=== PATIENT | male | born 1950 | race Caucasian/White ===

== ENCOUNTER 2017-08-19 12:06 | Inpatient (IN) ==
--- NOTE | 2017-08-19 13:18 | Podiatry History & Physical ---
History of Present Illness Chief complaint: osteomyelitis of calcaneus, left with achilles tendon rupture. HPI: Mr. Zaman is a 67 year old male who was recently seen for an Achilles tendon rupture. A short relates that he has had an ulcer on the back of his heel for over a month and the ulceration site continues to drain. Patient patient relates that he was seen wound care for the site and then had a rupture and infection and was referred to me. An MRI reveals bone marrow edema consistent with osteomyelitis and an ESR demonstrates inflammation that could likely correspond to osteomyelitis as well. Previous cultures were obtained and culture results will be obtained if possible from the other facility. New cultures were obtained today and we will await sensitivity. The patient has been on antibiotics orally for the last few days. The patient relates a history of COPD, gout, poorly controlled diabetes, occipital neuralgia. All Systems Reviewed: A 10-system review of systems was performed and is negative for pertinent findings except as documented above in the HPI. Past Med Surg Social Fam HX - Past Medical History Medical history: CHF, COPD, diabetes, thyroid disease, other Psychiatric history: no psych history - Social History Smoking Status: Former smoker Smokeless Tobacco Status: Yes (1 POUCH/2 DAYS) Alcohol use: none Drug use: none Medications and Allergies Albuterol Sulfate [Albuterol Inhaler] 2 puff IH Q4HR 11/16/15 [History] Allopurinol [Zyloprim 300 MG] 300 mg PO DAILY 11/16/15 [History] Carvedilol [Carvedilol] 6.25 mg PO BID 11/16/15 [History] Ciprofloxacin [Cipro] 500 mg PO BID 11/16/15 [History] Furosemide [Lasix] 120 mg PO BID 11/16/15 [History] Levothyroxine [Synthroid] 75 mcg PO 0630 11/16/15 [History] Potassium Chloride [K-Tab ER] 3 tab PO BID 11/16/15 [History] Potassium Phosphate,Monobasic [K-Phos Original] 500 mg PO DAILY 11/16/15 [ History] PredniSONE [Deltasone] 20 mg PO BID 11/16/15 [History] Spironolactone [Aldactone] 2 tab PO BID 11/16/15 [History] glipiZIDE [Glipizide] 10 mg PO TID 11/16/15 [History] Insulin Aspart Prot/Insuln Asp [Novolog Mix 70-30 Flexpen Syrn] 100 unit SQ BID 11/17/15 [History] 3 Allergy/AdvReac Type Severity Reaction Status Date / Time No Known Allergies Allergy Verified 11/16/15 22:30 Physical Exam - Constitutional Exam: 2 cm diameter full-thickness heel ulcer on the posterior aspect of the left heel with drainage consistent with purulence. There is erythema surrounding the ulceration site. Pedal pulses palpable. Cap refill time intact to digits 1 through 5 bilaterally. Sensation slightly decreased consistent with peripheral neuropathy. Labs-ESR elevated CRP elevated MRI demonstrates bone marrow edema and Achilles tendon rupture of the left. Results - Labs Labs: All other labs normal. Assessment and Plan (1) Acute osteomyelitis of left calcaneus Current visit: Yes Status: Acute We will consult medicine for medical management and stabilization of the patient for surgery and to manage the patient's multiple comorbidities. We will consult infectious disease for IV antibiotics for osteomyelitis of the calcaneus and will likely need 6 weeks of antibiotics. Planning on surgical debridement of the site as soon as the patient is stable for surgery. The patient will need to remain nonweightbearing and have daily dressing changes consistent of Adaptic 4 x 4's and Kerlix The heel will need to be offloaded at all times with no pressure on the posterior aspect of the heel and pillows floating the heel. At discharge the patient will likely need a wound VAC, IV antibiotics, possible assisted device to remain nonweightbearing at home. Social work will be consulted. Surgical consent-The patient needs an irrigation and debridement of the left calcaneus with application of wound VAC. The procedure was discussed with the patient at length. The patient was also instructed that after the procedure he would need a wound VAC for an extended period of time to allow the site to heal. The patient was also instructed that he may require an additional surgery at a later time to repair the Achilles. The patient was instructed that at this time we would not likely repair the Achilles due to the infection and the desire to avoid any implants which may cause complications with the infection. The patient will first receive a washout and then IV antibiotics for an extended period of time with a wound VAC after which we will consider repairing the Achilles. Patient was informed of the risks and complications of surgery. These may include but are not limited to the following; nerve damage, numbness, tingling, RSD/CRPS, loss of motor function, loss of toe, loss of limb , loss of life, ischemia, wound healing issues, infection, scarring, keloid formation, continued pain, arthritis, non-union, mal-union, prominent hardware, displaced hardware, reaction to hardware, the need to remove hardware, bruising , continued limp, the need for future surgery, over correction, under correction , chronic swelling, the need for physical therapy, stiffness of joints, ulceration, slow healing, wound dehiscence, reaction to implant, reaction to sutures. The patient was informed of the possible conservative treatments available which may include but are not limited to the following: Orthotics, bracing, non -weight bearing, physical therapy, padding, taping, steroid injections, NSAIDS, casting. The patient was given the option to seek a second opinion. It was explained that surgery is an art and not an exact science therefore results cannot be guaranteed. All the patients questions and concerns were addressed. Patient agrees to have the surgery despite the possible risks and complications. Absolutely no guarantees were given or implied.
[2017-08-19] MEDS ORDERED: Naloxone 0.4 MG/ML INJ IVP PRN (14:48)
[2017-08-19] MEDS ORDERED: Ondansetron 4 MG/2 ML VIAL IVP PRN (14:48)
[2017-08-19] MEDS ORDERED: Dextrose Gel 15 GM PO PRN ×2 (15:10)
[2017-08-19] MEDS ORDERED: D5% in Water 1,000 ML IVC PRN (15:10)
[2017-08-19] MEDS ORDERED: *HR* Dextrose 50 % in Water (Syg) 50 ML SYRINGE IVP PRN (15:10)
--- NOTE | 2017-08-19 15:39 | Internal Med History&Physical ---
<Flory Aguirre - Last Filed: 08/19/17 16:35> Date of Encounter: 08/19/17 Time of Encounter: 15:34 Assessment and Plan (1) Acute osteomyelitis of left calcaneus Current visit: Yes Status: Acute 1 blood cultures have been obtained we will initiate on vancomycin and Zosyn 2 orthopedics has been consulted for surgical debridement- and wound managment 3 patient does have history of DM and will need at least 6 weeks IV ATB will consult ID (2) Diabetes mellitus Current visit: No Status: Chronic 1 Accu-Cheks before meals at bedtime sliding scale insulin as well as basal 2 diabetic diet Qualifiers: Diabetes mellitus type: type 2 Diabetes mellitus complication status: without complication 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 Does not appear to be in overload at this point, we will obtain echo. We will consult cardiology for preop clearance. Fluid restriction Monitor intake and output Continue with Lasix, spironolactone Continuous cardiac monitoring Qualifiers: Heart failure chronicity: chronic Qualified Code(s): I50.32 - Chronic diastolic (congestive) heart failure (4) Obesity hypoventilation syndrome Current visit: No Status: Chronic Patient has history of CO2 retention he is morbidly obese. He does have a trach which she received in December 2015. We will consult respiratory therapy for trach care Oxygen as needed to maintain SPO2 greater than 92% (5) COPD (chronic obstructive pulmonary disease) Current visit: No Status: Chronic Presently appears to be stable we will continue with oxygen and bronchodilators Qualifiers: COPD type: unspecified COPD Qualified Code(s): J44.9 - Chronic obstructive pulmonary disease, unspecified (6) DVT prophylaxis Current visit: Yes Status: Acute Heparin subcutaneous Internal Medicine - H&P: HPI Chief complaint: infection Plans for Post Hospital Care: Home History of present illness: Mr. Zaman is a 67 year old male past medical history of hypothyroid COPD, obesity hypoventilation-patient has a trach. Diastolic CHF CK D PVD. Patient has had a ulcer on the back of his heel for approximately a month which began to drain. He was seen at the wound care clinic. On August 06 of this year patient did sustain Achilles tendon rupture and open displaced avusion fx of tuberosity of l calcaneous . He has been on outpatient antibiotics for the last few days He was referred to orthopedics. An MRI revealed bone marrow edema consistent with osteomyelitis as well as an elevated ESR. Cultures were obtained at the outlying facility. He was directly admitted for further workup and evaluation. Lab work was obtained as well as blood cultures. Patient does have history of diastolic heart failure as well as obesity hypoventilation. Cardiology has been consult in for preop clearance. We will obtain cardiac echo as well as EKG. At present time patient appears to be hemodynamically stable. Past Med Surg Social Fam HX - Past Medical History Medical history: CHF, COPD, diabetes, thyroid disease, other Psychiatric history: no psych history - Past Surgical History Surgical History: orthopedic, other - Social History Smoking Status: Former smoker Smokeless Tobacco Status: Yes (1 POUCH/2 DAYS) Alcohol use: none Drug use: none - Family History Mother Living Status: Cause of : Leukemia Hx Family Cancer: Yes (Leukemia) Hx Family Endocrine Disorder: Yes (DM) Father Living Status: Cause of : Colon CA Hx Family Cancer: Yes (Colon) Internal Medicine - H&P: Meds Albuterol Sulfate [Albuterol Inhaler] 2 puff IH Q4HR 11/16/15 [History] Allopurinol [Zyloprim 300 MG] 300 mg PO DAILY 11/16/15 [History] Levothyroxine [Synthroid] 75 mcg PO 0630 11/16/15 [History] Potassium Chloride [K-Tab ER] 3 tab PO BID 11/16/15 [History] Spironolactone [Aldactone] 2 tab PO BID 11/16/15 [History] Insulin Aspart Prot/Insuln Asp [Novolog Mix 70-30 Flexpen Syrn] 50 unit SQ BID 11/17/15 [History] Collagenase Oint [Santyl] 1 appl TP DAILY 08/19/17 [History] Doxycycline Hyclate [Vibramycin] 100 mg PO BID 08/19/17 [History] Furosemide [Lasix] 80 mg PO TID 08/19/17 [History] Omeprazole [PriLOSEC] 40 mg PO DAILY 08/19/17 [History] OxyCODONE/APAP 10/325 [Percocet 10/325 MG] 1 tab PO Q6H PRN 08/19/17 [History] 3 Allergy/AdvReac Type Severity Reaction Status Date / Time No Known Allergies Allergy Verified 08/19/17 14:08 All Systems PM: A 10-system review of systems was performed and is negative for pertinent findings except as documented above in the HPI. - Constitutional Constitutional: no chills, no fever(s), no night sweats - EENT Eyes: no change in vision, no discharge, no pain, no photophobia Nose, mouth and throat: no dysphagia, no nasal discharge, no neck pain, no sore throat - Cardiovascular Cardiovascular ROS IM: no chest pain, no diaphoresis, no dyspnea, no lightheadedness, no palpitations, no syncope - Respiratory Respiratory: no cough, no dyspnea, no wheezing, no excessive phlegm production - Gastrointestinal Gastrointestinal: no abdominal pain, no diarrhea, no hematemesis, no hematochezia, no melena, no nausea, no vomiting - Musculoskeletal Musculoskeletal ROS IM: no numbness, no tingling - Integumentary Integumentary IM: no rash, no unusual bruising - Neurological Neurological ROS: no confusion, no convulsions, no focal weakness, no numbness, no tingling, no tremor(s) - Constitutional Vitals: Temp Pulse Resp BP Pulse Ox 98.8 F 83 18 168/73 90 08/19/17 14:16 08/19/17 14:16 08/19/17 14:16 08/19/17 14:16 08/19/17 14:40 General appearance: Present: A&O X 3 - Head Head exam: Present: atraumatic, normocephalic - Eye Eye exam: Present: PERRL, conjuntiva pink, sclera anicteric Pupils: Present: PERRL - Neck Neck exam general surgery: Present: supple, trachea midline. Absent: lymphadenopathy - Respiratory Respiratory exam: Present: CTAB. Absent: accessory muscle use, rales, rhonchi, wheezes - Cardiovascular Cardiovascular exam: Present: RRR, +S1, +S2. Absent: diastolic murmur, gallop, rubs, systolic murmur - GI/Abdominal GI/Abdominal exam: Present: normal bowel sounds, soft, no peritoneal signs. Absent: distended, tenderness - Extremities Exam Extremities exam: Present: warm, radial pulses palpable and symmetrical. Absent : calf tenderness, cyanotic, pedal edema - Expanded Lower Extremities Exam Ankle exam: Present: swelling (Left leg was splinted) Internal Med - H&P Results - Labs CBC & Chem 7: 08/19/17 16:02 08/19/17 16:02 <Jarrell Perez P - Last Filed: 08/19/17 17:55> Date of Encounter: 08/19/17 Internal Medicine - H&P: HPI History of present illness: Mr. Zaman is a 67 year old male All Systems PM: A 10-system review of systems was performed and is negative for pertinent findings except as documented above in the HPI. - Constitutional Vitals: Temp Pulse Resp BP Pulse Ox 98.8 F 83 18 168/73 90 08/19/17 14:16 08/19/17 14:16 08/19/17 14:16 08/19/17 14:16 08/19/17 14:40 Internal Med - H&P Results - Labs CBC & Chem 7: 08/19/17 16:02 08/19/17 16:02 Labs: Short CBC 08/19/17 Range/Units 16:02 WBC 8.1 (4.3-11.1) K/mcL Hgb 13.3 (12.9-16.9) g/dL Hct 42.3 (37.5-50.1) % Plt Count 253 (140-400) K/mcL Neutrophils # 5.9 (1.6-8.9) K/mcL BMP 08/19/17 16:02 Sodium 139 Potassium 4.1 Chloride 100 Carbon Dioxide 31 H BUN 22 Creatinine 1.60 H Glucose 177 H Calcium 8.9 Liver Function 08/19/17 Range/Units 16:02 Total Bilirubin < 0.2 L (0.2-1.2) mg/dL AST 19 (5-34) Units/L ALT 16 (0-55) Units/L Alkaline Phosphatase 91 (38-126) Units/L Albumin 2.6 L (3.5-5.0) g/dL - Attending Attestation I examined this patient and my medical decision-making was reviewed with the Resident Physician/COMMUNITY AFFAIRS DIRECTOR. I agree with the documented findings, disposition and treatment plan as described except to the extent set forth below. Patient seen and examined. Next line chart reviewed. I examined this patient in unit 3B 65 along with Ms Ruth. Very complex case and multiple comorbidities. Please review the comorbidities and presenting symptom as above. This patient needs surgery but before that he needs a cardiology clearance as he has multiple risk factors. There is a risk of patient might get into ventilator/ICU if he receives under general anesthesia during the surgery. We will get cardiology/infectious disease/social and human services assistant on the board for their opinion.
[2017-08-19] MEDS ORDERED: Vancomycin 2,000 MG in D5% in Water 500 ML IVPB ONE (16:00)
[2017-08-19 16:13] LABS: Basophils # 0.1 K/mcL (0.0-0.2); Basophils % 0.6 %; Eosinophils # 0.2 K/mcL (0.0-0.6); Hematocrit 42.3 % (37.5-50.1); Hemoglobin 13.3 g/dL (12.9-16.9); Immature Granulocytes % 0.4 % (0-4); Lymphocytes # 1.4 K/mcL (0.6-4.6); Lymphocytes % 17.3 %; Mean Corpuscular HGB Conc 31.4 g/dL (31.6-35.5); Mean Corpuscular Hemoglobin 28.9 pg (28.0-33.3); Mean Platelet Volume 9.7 fL (9.4-12.4); Monocytes # 0.5 K/mcL (0.0-1.3); Monocytes % 6.5 %; Neutrophils # 5.9 K/mcL (1.6-8.9); Platelet Count 253 K/mcL (140-400); Red Cell Distribution Width 14.6 % (11.5-14.5); Segmented Neutrophils % 73.2 %
[2017-08-19 16:27] LABS: Alanine Aminotransferase 16 Units/L (0-55); Albumin 2.6 g/dL (3.5-5.0); Albumin/Globulin Ratio 0.6 (1.1-2.2); Alkaline Phosphatase 91 Units/L (38-126); Aspartate Amino Transferase 19 Units/L (5-34); BUN/Creatinine Ratio 14 (6-26); Blood Urea Nitrogen 22 mg/dL (8-26); Calcium 8.9 mg/dL (8.6-10.8); Carbon Dioxide 31 mEq/L (19-29); Chloride 100 mEq/L (98-109); Globulin 4.7 g/dL (2.4-3.5); Glucose 177 mg/dL (70-99); Osmolality,Calculated 296 (280-300); Potassium 4.1 mEq/L (3.5-4.5); Sodium 139 mEq/L (136-145); Total Protein 7.3 g/dL (6.0-8.3); eGFR For African Americans 52 (> 60); eGFR For Non-African Americans 43 (> 60)
[2017-08-19 16:32] LABS: Bilirubin,Total < 0.2 mg/dL (0.2-1.2)
[2017-08-19] MEDS: Furosemide 40 MG TABLET PO SCH ×2 (16:35→21:11)
[2017-08-19] MEDS: Piperacillin/Tazobactam 3.375 GM in D5% in Water 50 ML IVPB SCH (16:35)
[2017-08-19] MEDS: Insulin LISPRO 300 UNITS/3 ML VIAL SQ SCH ×2 (17:37→21:02)
[2017-08-19] MEDS: *HR* Heparin 5,000 UNIT/ML VIAL SQ SCH (17:38)
[2017-08-19] MEDS ORDERED: 0.9 % Sodium Chloride 250 ML ONE (18:39)
[2017-08-19] MEDS ORDERED: Perflutren Lipid Microsphere 1.3 ML in 0.9 % Sodium Chloride 8.7 ML IVP ONE (19:59)
[2017-08-19] MEDS: Spironolactone 25 MG TABLET PO SCH (21:11)
[2017-08-19] MEDS: Insulin DETEMIR 100 UNIT/ML X5UNITS SQ SCH (21:11)
[2017-08-20] MEDS: Piperacillin/Tazobactam 3.375 GM in D5% in Water 50 ML IVPB SCH ×4 (00:07→20:45)
[2017-08-20] MEDS ORDERED: amLODIPine 5 MG TABLET PO ONE (03:44)
[2017-08-20] MEDS ORDERED: Vancomycin 1,750 MG in D5% in Water 500 ML IVPB SCH (04:00)
[2017-08-20 05:40] LABS: Basophils # 0.1 K/mcL (0.0-0.2); Basophils % 0.7 %; Eosinophils # 0.3 K/mcL (0.0-0.6); Eosinophils % 2.7 %; Hemoglobin 13.5 g/dL (12.9-16.9); Immature Granulocytes % 0.5 % (0-4); Lymphocytes # 1.3 K/mcL (0.6-4.6); Lymphocytes % 13.7 %; Mean Corpuscular HGB Conc 30.7 g/dL (31.6-35.5); Mean Corpuscular Hemoglobin 28.4 pg (28.0-33.3); Mean Corpuscular Volume 92.6 fL (83.0-100.0); Mean Platelet Volume 9.6 fL (9.4-12.4); Monocytes # 0.7 K/mcL (0.0-1.3); Monocytes % 7.7 %; Neutrophils # 7.2 K/mcL (1.6-8.9); Platelet Count 246 K/mcL (140-400); Red Blood Count 4.75 M/mcL (4.19-5.50); Red Cell Distribution Width 14.8 % (11.5-14.5); Segmented Neutrophils % 74.7 %
[2017-08-20] MEDS: *HR* Heparin 5,000 UNIT/ML VIAL SQ SCH ×2 (05:54→17:46)
[2017-08-20 05:56] LABS: Calcium 8.9 mg/dL (8.6-10.8); Potassium 3.7 mEq/L (3.5-4.5)
[2017-08-20 06:10] LABS: Thyroid Stimulating Hormone 3.353 mcIU/mL (0.350-4.840)
[2017-08-20] MEDS: Insulin LISPRO 300 UNITS/3 ML VIAL SQ SCH ×4 (07:32→20:45)
[2017-08-20] MEDS: Spironolactone 25 MG TABLET PO SCH ×2 (09:32→20:44)
[2017-08-20] MEDS: Furosemide 40 MG TABLET PO SCH ×3 (09:32→20:44)
--- NOTE | 2017-08-20 10:00 | Cardiology Consult Note ---
<Naty Rosenthal - Last Filed: 08/20/17 11:23> Date of Encounter: 08/20/17 Time of Encounter: 10:40 Assessment and Plan (1) Pre-operative cardiovascular examination Current Visit: Yes Status: Acute Patient diagnosed with osteomyeltis of calcaneus with left achilles tendon rupture and plans for surgical debridement. Patient denies chest pain at rest or with exertion. Denies orthopnea with zero pillows, PND, syncope. Cardiovascular risk factors: former smoker (20 years ago), obesity, HTN, DM2. No family hx of cardiovascular disease. EKG normal sinus rhythm with no evidence for current or prior ischemia. Limited echo showed EF 55-60%, normal LV chamber size and function. Mild concentric LVH. RCRI risk score of 1 point for DM insulin dependent, giving him a 0.9% risk of major cardiac events. According to the RCRI score, he is low to intermediate risk for surgical debridement with a normal EKG and limited echo. Any further cardiac testing navid prevent and delay surgery, therefore it navid be reasonable to proceed with surgery from a cardiovascular standpoint. Discussion w patient/family: The assessment and plan as outlined above was discussed with the patient and/or family members who expressed understanding and agreement. All questions were answered. Thank you for involving us in the care of your patient. Please call with any questions. History of Present Illness Consult date: 08/20/17 Requesting physician: Flory Aguirre Consult reason: preop clearance Chief complaint: osteomyeltitis History of present illness: Mr. Zaman is a 67 year old male witha pmh of HTN, CKD, and PVD, obesity hypoventilation-patient has a trach, and former smoker who presented as a direct admit from podiatry for osteomyelitis. Cardiology was consulted for surgical debraidement clearance. Patient states that he has no chest pain at rest or with excertion. Patient states that te most strenuous activity he performs is going 10ft to the bathroom. When he does this he states he has no chest pain or shortness of breath. He does not use home ozygen. At home patient sleeps completely flat without using a pillow denies orthopnea or PND. Patient states that he has not had syncope in years but is dizzy when he looks up and down. No family hx of cardiovascular event. Former smoker 20 years ago. Past Med Surg Social Fam HX - Past Medical History Medical history: CHF, COPD, diabetes, thyroid disease, other Psychiatric history: no psych history - Past Surgical History Surgical History: orthopedic, other - Social History Smoking Status: Former smoker Smokeless Tobacco Status: Yes (1 POUCH/2 DAYS) Alcohol use: none Drug use: none - Family History Mother Living Status: Cause of : Leukemia Hx Family Cancer: Yes (Leukemia) Hx Family Endocrine Disorder: Yes (DM) Father Living Status: Cause of : Colon CA Hx Family Cancer: Yes (Colon) Medications and Allergies Albuterol Sulfate [Albuterol Inhaler] 2 puff IH Q4HR 11/16/15 [History] Allopurinol [Zyloprim 300 MG] 300 mg PO DAILY 11/16/15 [History] Levothyroxine [Synthroid] 75 mcg PO 0630 11/16/15 [History] Potassium Chloride [K-Tab ER] 3 tab PO BID 11/16/15 [History] Spironolactone [Aldactone] 2 tab PO BID 11/16/15 [History] Insulin Aspart Prot/Insuln Asp [Novolog Mix 70-30 Flexpen Syrn] 50 unit SQ BID 11/17/15 [History] Collagenase Oint [Santyl] 1 appl TP DAILY 08/19/17 [History] Doxycycline Hyclate [Vibramycin] 100 mg PO BID 08/19/17 [History] Furosemide [Lasix] 80 mg PO TID 08/19/17 [History] Omeprazole [PriLOSEC] 40 mg PO DAILY 08/19/17 [History] OxyCODONE/APAP 10/325 [Percocet 10/325 MG] 1 tab PO Q6H PRN 08/19/17 [History] 3 Allergy/AdvReac Type Severity Reaction Status Date / Time No Known Allergies Allergy Verified 08/19/17 14:08 All Systems Review: A 10-system review of systems was performed and is negative for pertinent findings except as documented above in the HPI. Physical Examination Vital Signs, Last 4 Hours Temp Pulse Resp BP Pulse Ox 08/20/17 07:22 92 08/20/17 06:47 97.9 F 74 16 144/79 92 General: Conversant, No Apparent Distress HEENT: Atraumatic, Normocephaly, Mucus Membranes Moist Neck: Normal carotid pulses Cardiac: Reg Rate and Rhythm, Normal S1 and S2, No Murmur Lungs: Normal Breath Sounds, No Wheeze, Rales, Rhonchi Neuro: Alert and responsive, No focal deficits noted Abdomen: Non-Tender Skin: No rashes noted on visualized skin Extremities: Normal Pulses (radial pulses equal bilaterally ), Other (+ 1 pitting edema in R LE. Left lower extremity wrapped in boot and bandage. ) Results 08/20/17 05:16 08/20/17 05:16 Lab Results 08/19/17 08/19/17 08/20/17 16:02 16:02 05:16 WBC 8.1 9.6 Hgb 13.3 13.5 Hct 42.3 44.0 Plt Count 253 246 Sodium 139 Potassium 4.1 Chloride 100 Carbon Dioxide 31 H BUN 22 Creatinine 1.60 H Glucose 177 H Calcium 8.9 Total Bilirubin < 0.2 L AST 19 ALT 16 Alkaline Phosphatase 91 TSH 08/20/17 05:16 WBC Hgb Hct Plt Count Sodium 140 Potassium 3.7 Chloride 98 Carbon Dioxide 36 H BUN 23 Creatinine 1.57 H Glucose 141 H Calcium 8.9 Total Bilirubin AST ALT Alkaline Phosphatase TSH 3.353 - Imaging and Cardiology Echo: report reviewed, other (EF 55-60%, normal LV chamber size and function. Mild concentric LVH.) - EKG Interpretation EKG results cardiology: personally reviewed, normal ECG, sinus rhythm, no diagnostic ischemia (no prior ischemia shown on EKG) Consult Discharge Plan - Plan Referrals: Beverley Baum MD [Primary Care Provider] - <[email or web address] - Last Filed: 08/20/17 18:17> Date of Encounter: 08/20/17 - Attending Attestation The patient was taken to surgery prior to my personal evaluation. I did discuss the case with the Resident and agree with the plan of care. Briefly, the patient is a 67-year-old male diagnosed with osteomyelitis of the calcaneus and left Achilles tendon rupture with plans for surgical debridement. His ECG demonstrated sinus rhythm and otherwise normal findings without evidence for current or prior ischemia. A limited echo demonstrated normal LV systolic function. He was able to tell the resident that he did not have chest pain although symptoms may be limited secondary to functional limitation. According to the RCRI risk score, he is at low risk for surgical debridement. However, the presence of cardiovascular risk factors may increase his risk. Overall, he appears to be at low to intermediate risk to proceed with surgery based on the Resident's assessment, exam and personal evaluation of objective data. Assessment and Plan Discussion w patient/family: The assessment and plan as outlined above was discussed with the patient and/or family members who expressed understanding and agreement. All questions were answered. Thank you for involving us in the care of your patient. Please call with any questions. History of Present Illness History of present illness: Mr. Zaman is a 67 year old male All Systems Review: A 10-system review of systems was performed and is negative for pertinent findings except as documented above in the HPI. Physical Examination Vital Signs, Last 4 Hours Temp Pulse Resp BP Pulse Ox 08/20/17 17:57 97.8 F 75 18 134/89 92 08/20/17 17:54 97.8 F 75 18 134/89 92 08/20/17 16:00 76 16 134/57 92 08/20/17 15:10 97.8 F 73 16 150/71 93 Results 08/20/17 05:16 08/20/17 05:16 Lab Results 08/20/17 08/20/17 05:16 05:16 WBC 9.6 Hgb 13.5 Hct 44.0 Plt Count 246 Sodium 140 Potassium 3.7 Chloride 98 Carbon Dioxide 36 H BUN 23 Creatinine 1.57 H Glucose 141 H Calcium 8.9 TSH 3.353
--- NOTE | 2017-08-20 13:17 | Internal Med Progress Note ---
Date of Encounter: 08/20/17 Time of Encounter: 13:00 - Assessment and plan (1) Acute osteomyelitis of left calcaneus Current Visit: Yes Status: Acute Assessment and plan: Noted to have left heel ulcer for the last 3-4 weeks per , follows with Podiatry; MRI left foot at outside facility shows bone marrow edema of calcaneus c/w osteomyelitis. Has been on unknown oral antibiotics as outpatient. Continue IV Vancomycin and Zosyn; Gram stain of wound shows few WBC , no bacteria; f/up final culture and blood cultures. ID has been consulted; Podiatry on board, plans for irrigation, debridement and wound vac placement; pain control with PRN IV Morphine; (2) CKD (chronic kidney disease) Current Visit: Yes Status: Chronic Assessment and plan: serum creatinine at baseline, 1.57 today; avoid nephrotoxic agents if possible; Qualifiers: Chronic kidney disease stage: stage 3 (moderate) Qualified Code(s): N18.3 - Chronic kidney disease, stage 3 (moderate) (3) Hypothyroidism Current Visit: Yes Status: Chronic Qualifiers: Hypothyroidism type: unspecified Qualified Code(s): E03.9 - Hypothyroidism , unspecified (4) Diabetes mellitus Current Visit: Yes Status: Chronic Assessment and plan: continue Accucheck blood glucose monitoring with basal bolus insulin regimen; blood sugars well-controlled, noted to have hypoglycemia, received D50, due to NPO status prior to surgery; diabetic diet when able; Qualifiers: Diabetes mellitus type: type 2 Diabetes mellitus complication status: with kidney complications Diabetes mellitus complication detail: with chronic kidney disease Diabetes mellitus residential insulin use: with residential use Chronic kidney disease stage: stage 3 (moderate) Qualified Code(s): E11.22 - Type 2 diabetes mellitus with diabetic chronic kidney disease; N18.3 - Chronic kidney disease, stage 3 (moderate); N18.3 - Chronic kidney disease, stage 3 ( moderate); Z79.4 - assisted (current) use of insulin; 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 On LASIX and Spironolactone; Qualifiers: Heart failure chronicity: chronic Qualified Code(s): I50.32 - Chronic diastolic (congestive) heart failure (6) Obesity hypoventilation syndrome Current Visit: Yes Status: Chronic Assessment and plan: on chronic tracheostomy, not on O2/NIPPV; (7) COPD (chronic obstructive pulmonary disease) Current Visit: Yes Status: Chronic Assessment and plan: not in acute exacerbation; continue PRN bronchodilators and supplemental O2; Qualifiers: COPD type: unspecified COPD Qualified Code(s): J44.9 - Chronic obstructive pulmonary disease, unspecified - Subjective Interval history: Feels tired and reports throat pain; history provided by at bedside; no fever/chills, nausea/vomiting; left heel ulcer for the last 3-4 weeks, follows with Podiatry as outpatient; cleared by Cardiology for OR. possibly today. - Constitutional Vitals: Temp Pulse Resp BP Pulse Ox 97.8 F 61 15 157/71 98 08/20/17 12:01 08/20/17 12:01 08/20/17 12:01 08/20/17 12:01 08/20/17 12:01 General appearance: Present: A&O X 3, morbidly obese, answers questions appropriately - Respiratory Respiratory exam: Present: CTAB. Absent: accessory muscle use, rales, rhonchi, wheezes - Cardiovascular Cardiovascular exam: Present: RRR, +S1, +S2. Absent: diastolic murmur, gallop, rubs, systolic murmur - GI/Abdominal GI/Abdominal exam: Present: normal bowel sounds, soft (obese), no peritoneal signs. Absent: distended, tenderness - Extremities Exam Extremities exam: Present: full ROM, pedal edema, warm, radial pulses palpable and symmetrical. Absent: calf tenderness, cyanotic Additional comments: left heel in surgical boot and dressing Internal Medicine: Result - Labs CBC & Chem 7: 08/20/17 05:16 08/20/17 05:16 Labs: Short CBC 08/19/17 08/20/17 Range/Units 16:02 05:16 WBC 8.1 9.6 (4.3-11.1) K/mcL Hgb 13.3 13.5 (12.9-16.9) g/dL Hct 42.3 44.0 (37.5-50.1) % Plt Count 253 246 (140-400) K/mcL Neutrophils # 5.9 7.2 (1.6-8.9) K/mcL BMP 08/19/17 08/20/17 16:02 05:16 Sodium 139 140 Potassium 4.1 3.7 Chloride 100 98 Carbon Dioxide 31 H 36 H BUN 22 23 Creatinine 1.60 H 1.57 H Glucose 177 H 141 H Calcium 8.9 8.9 Liver Function 08/19/17 Range/Units 16:02 Total Bilirubin < 0.2 L (0.2-1.2) mg/dL AST 19 (5-34) Units/L ALT 16 (0-55) Units/L Alkaline Phosphatase 91 (38-126) Units/L Albumin 2.6 L (3.5-5.0) g/dL - Impressions Impressions Echocardiogram Limited Views 08/19/17 15:25 Impressions: LVEF 55-60%. Normal LV chamber size and function. Mild concentric left ventricular hypertrophy. Left Ventricular Wall Motion: Rest Echo Findings All wall segments showed normal motion. Findings: Study Quality * Technically adequate exam. ECG Findings * Normal sinus rhythm. Left Ventricle * LVEF 55-60%. * Normal LV chamber size and function. * Mild concentric left ventricular hypertrophy. Right Ventricle * Grossly normal right ventricular function. Left Atrium * Moderately dilated left atrium. Pericardium * The pericardium appears normal. Consult Discharge Plan - Plan Referrals: Beverley Baum MD [Primary Care Provider] -
--- NOTE | 2017-08-20 13:40 | Podiatry Progress Note ---
Date of Encounter: 08/20/17 Time of Encounter: 12:40 - Assessment and Plan (1) Acute osteomyelitis of left calcaneus Current Visit: Yes Status: Acute Assessment: Full thickness ulceration of posterior aspect of left calcaneus- chronic, non healing with drainage and MRI consistent with osteomyelitis Will plan to take to OR today- per - for irrigation and debridement of left calcaneus with application of wound vac. internal medicine was consulted and managing medical comorbidities We will consult infectious disease for IV antibiotics for osteomyelitis of the calcaneus and will likely need 6 weeks of antibiotics. Cardiology has been consulted and cleared patient for surgical intervention The heel will need to be offloaded at all times with no pressure on the posterior aspect of the heel and pillows floating the heel. At discharge the patient will likely need a wound VAC, IV antibiotics, possible assisted device to remain nonweightbearing at home. Social work will be consulted. Dressing was removed and changed at bedside, cleanse with saline, pat dry, adaptic, 4x4 kerlex and ghada were applied, cam boot reapplied Patient tolerated well. at bedside, understands plan is for surgical intervention today- states he will be at bedside shortly to speak with them. 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 Qualifiers: Heart failure chronicity: chronic Qualified Code(s): I50.32 - Chronic diastolic (congestive) heart failure (4) Pre-operative cardiovascular examination Current Visit: Yes Status: Acute Cardiology note on- clearance for surgical intervention noted and appreciated. Subjective Interval history: has presented following an Achilles rupture and non healing ulceration of the left calcaneus. Opon examination, decided yesterday that it would be best to take patient for surgical irrigation and debridement with application of wound vac. Patient was noted to have elevated ESR >130 and CRP of 53 with MRI positive for changes consistent with osteomyelitis. Patient denies any fevers, chills, n/v or flu like symptoms. Denies any chest pain or shortness of breath. patient has been NPO since midnight pending surgery today. Dressing to LLE clean dry and intact and CAM boot in place Objective - Vital Signs Vital Signs: Vital Signs Temp Pulse Resp BP Pulse Ox 08/20/17 12:01 97.8 F 61 15 157/71 98 08/20/17 07:22 92 08/20/17 06:47 97.9 F 74 16 144/79 92 08/20/17 03:57 14 94 08/20/17 03:24 98.1 F 78 18 174/75 94 08/19/17 23:24 99.3 F 83 18 165/67 91 08/19/17 19:28 94 08/19/17 18:57 99.3 F 82 18 162/81 91 08/19/17 14:40 90 08/19/17 14:16 98.8 F 83 18 168/73 90 Intake and Output 08/19/17 08/20/17 08/20/17 23:59 07:59 15:59 Intake Total 410 / 410 100 / 100 600 / 600 Output Total 350 / 350 Balance 60 / 60 100 / 100 600 / 600 Intake: IV Fluids 50 / 50 100 / 100 600 / 600 Zosyn 3.375 GM In Dextrose 5% ( 50 / 50 100 / 100 100 / 100 ADD-[place]) 50 ML @ 12.5 mls/ hr IVPB Q8HR [facility] Rx#:[id number] Vancocin 1,750 MG In Dextrose 5 500 / 500 % 500 ML @ 333.333 mls/hr IVPB Q12H [facility] Rx#:[id number] Oral 360 / 360 Output: Urine 350 / 350 Other: Meal Dinner Percent of Meal Consumed 100% Weight 143.879 kg Blood Glucose* 172 125 77 Patient Weight 08/20/17 23:59 Weight 143.879 kg - Exam Exam: ULCER: 4xte2st full thickness ulceration to posterior aspect of left calcaneus There is a suspected area of tunnelling to 12oclock area There is erythema and edema noted to periwound Mild warmth Scant green/yellow drainage noted to adaptic Wound bed is 100% fibrous slough tissue Pulses palpable DP/PT, cap refill time is immediate, warm toes to tibia There is a loss of protective sensation consistent with diabetic peripheral neuropathy Muscle strength 3/5 and equal bilaterally Awake alert and oriented- also at bedside. - Lab Result Diagrams: 08/20/17 05:16 08/20/17 05:16 Labs: Abnormal lab results MCHC 30.7 g/dL (31.6-35.5) L 08/20/17 05:16 RDW 14.8 % (11.5-14.5) H 08/20/17 05:16 Carbon Dioxide 36 mEq/L (19-29) H 08/20/17 05:16 Creatinine 1.57 mg/dL (0.72-1.25) H 08/20/17 05:16 Est GFR ( Amer) 53 (> 60) L 08/20/17 05:16 Est GFR (Non-Af Amer) 44 (> 60) L 08/20/17 05:16 Glucose 141 mg/dL (70-99) H 08/20/17 05:16 POC Glucose 172 (58-89) H 08/19/17 20:24 Total Bilirubin < 0.2 mg/dL (0.2-1.2) L 08/19/17 16:02 Albumin 2.6 g/dL (3.5-5.0) L 08/19/17 16:02 Globulin 4.7 g/dL (2.4-3.5) H 08/19/17 16:02 Albumin/Globulin Ratio 0.6 (1.1-2.2) L 08/19/17 16:02 Consult Discharge Plan - Plan Referrals: Beverley Baum MD [Primary Care Provider] -
--- NOTE | 2017-08-20 14:12 | Infectious Disease Consult ---
Date of Encounter: 08/20/17 Time of Encounter: 14:10 Assessment and Plan (1) Acute osteomyelitis of left calcaneus Status: Acute Assessment and plan: Location: left calcaneus. Causative organism unclear. Wound culture obtained in the outpatient setting yesterday is preliminarily negative, but the patient has been on an unknown oral antibiotic for several days. Previous wound culture obtained at [facility] grew staph aureus and streptococcus dysgalactiae. MRI of the left foot done at [facility] showed findings consistent with OM. No SIRS criteria and the patient does not appear toxic. Blood cultures are pending x 2 sets. Podiatry consulted and following. Discussed with Dr. Mireles. Planning to take the patient to the OR this afternoon. Advised nursing to keep the patient NPO. The patient has already been started on IV antibiotics by the primary team. Would have preferred to hold IV antibiotics until adequate cultures could be obtained in surgery, but will continue since the patient is likely going to surgery later today. Check inflammatory markers. Await intra-op findings/pathology/cultures. Continue Vancomycin IV. Pharmacy to dose. Goal trough ~15. Continue Zosyn 3.375 grams IV Q8H. Duration of treatment depends on the clinical picture, but likely 6 weeks post- op. Monitor renal function and for drug toxicity and dose-adjust antibiotics. special services director to assist with discharge planning. Avoid insertion of central venous access until blood cultures are negative x 48 hours. (2) Achilles tendon rupture Status: Acute Assessment and plan: Management per the podiatry team. Qualifiers: Encounter type: initial encounter Laterality: left Qualified Code(s): S86.012A - Strain of left Achilles tendon, initial encounter (3) Diabetes mellitus Status: Chronic Assessment and plan: Check HgbA1C. Recommend aggressive glucose monitoring and control to promote wound healing and prevent re-infection. Management per the primary team. Qualifiers: Diabetes mellitus type: type 2 Diabetes mellitus complication status: without complication Diabetes mellitus manager long term care insulin use: with skilled nursing use Qualified Code(s): E11.9 - Type 2 diabetes mellitus without complications ; Z79.4 - half-way (current) use of insulin; Z79.4 - half-way (current) use of insulin; Z79.4 - intermission coordinator (current) use of insulin; Z79.4 - intermission coordinator ( current) use of insulin (4) Diastolic heart failure Status: Chronic Qualifiers: Heart failure chronicity: chronic Qualified Code(s): I50.32 - Chronic diastolic (congestive) heart failure (5) Obesity hypoventilation syndrome Status: Chronic (6) COPD (chronic obstructive pulmonary disease) Status: Chronic Qualifiers: COPD type: unspecified COPD Qualified Code(s): J44.9 - Chronic obstructive pulmonary disease, unspecified (7) CKD (chronic kidney disease) Status: Acute Assessment and plan: Serum creatinine elevated. Unsure of baseline. Monitor closely. Dose-adjust antibiotics. Avoid nephrotoxins as able. Qualifiers: Chronic kidney disease stage: unspecified stage Qualified Code(s): N18.9 - Chronic kidney disease, unspecified Infectious Disease HPI - Data of Consult Patient: new to practice Consult date: 08/20/17 Requesting Physician: Xi Vargas MD Primary Care Provider: Beverley Baum MD - Consult Narrative Reason for consult: Right heel osteomyelitis History of present illness: Mr. Zaman is a 67 year old male with a past medical history of hypothyroidism , COPD, obesity hypoventilation syndrome, diastolic CHF, chronic kidney disease , peripheral vascular disease, and a right heel nonhealing ulcer. The patient was admitted to the hospital August 19 for left foot osteomyelitis. We are consult on August 20 for antibiotic recommendations regarding the left foot osteomyelitis. Briefly, the patient is a 67-year-old male with a past medical history as stated above. The patient reports a left heel ulcer that started about a month ago. He states he's been seeing wound care at [facility] and had worsening of the wound that he was referred here. He had an MRI over at [facility] that showed findings consistent with osteomyelitis. He was referred to our orthopedics department who then subsequently referred the patient to podiatry. The patient was directed to come to the hospital for admission. Upon arrival, the patient was afebrile and hemodynamically stable. He had a normal white blood cell count. His serum creatinine is elevated at 1.6, but the patient does have chronic kidney disease and I'm unsure as to what his baseline is. He was evaluated by podiatry and was deemed to need to go to surgery for debridement. Cardiology was consulted and has provided cardiac clearance for the patient to go to the OR. Blood cultures were obtained 2 sets. The patient was started on IV vancomycin and IV Zosyn. We've been asked to evaluate and make further recommendations. During my exam today, the patient states that overall he felt fine. He denies any fevers or chills or rigors. He denies any headache or neck pain. He denies any weakness or dizziness. He denies any chest pain, shortness of breath, or cough. He denies any nausea, vomiting, diarrhea, or constipation. He denies any abdominal pain, urinary complaints, or appetite changes. He denies any night sweats or weight loss. He denies any pain at the ulceration site. He states he is not sure what caused it. She's been diabetic for 30 years and is on insulin at home. He states his blood sugars have been "fine" at home. He denies any oral thrush or new skin lesions. She lives at home with his daughter. He is retired. He does chew tobacco, but denies any alcohol or illicit drug use. He denies any recent bites or scratches to the foot or leg. He is insistent that he is going home at discharge rather than to a rehabilitation facility. CC: Xi Vargas MD Past Med Surg Social Fam HX - Past Medical History Attestation: Yes The following information was validated with the patient. Source: patient, old records reviewed, nursing notes reviewed Medical history: CHF, COPD, diabetes, renal disease, thyroid disease ( hypothyroidism), other (obesity hypoventilation syndrome, achilles tendon rupture with displaced avulsion fracture of tuberosity of the left calcaneus) Psychiatric history: no psych history - Past Surgical History Surgical History: orthopedic, other, tracheostomy - Social History Smoking Status: Former smoker Smokeless Tobacco Status: Yes (1 POUCH/2 DAYS) Alcohol use: none Drug use: none Occupational status: retired Current living situation: Home, With Family Activity Level: Independent ambulation Recent Out of Country Travel Within the Last 8 Weeks: No Exposure or Possible Exposure to Illness During Travel: No - Family History Mother Living Status: Cause of : Leukemia Hx Family Cancer: Yes (Leukemia) Hx Family Endocrine Disorder: Yes (DM) Father Living Status: Cause of : Colon CA Hx Family Cancer: Yes (Colon) Infectious Disease-CN:Meds Albuterol Sulfate [Albuterol Inhaler] 2 puff IH Q4HR 11/16/15 [History] Allopurinol [Zyloprim 300 MG] 300 mg PO DAILY 11/16/15 [History] Levothyroxine [Synthroid] 75 mcg PO 0630 11/16/15 [History] Potassium Chloride [K-Tab ER] 3 tab PO BID 11/16/15 [History] Spironolactone [Aldactone] 2 tab PO BID 11/16/15 [History] Insulin Aspart Prot/Insuln Asp [Novolog Mix 70-30 Flexpen Syrn] 50 unit SQ BID 11/17/15 [History] Collagenase Oint [Santyl] 1 appl TP DAILY 08/19/17 [History] Doxycycline Hyclate [Vibramycin] 100 mg PO BID 08/19/17 [History] Furosemide [Lasix] 80 mg PO TID 08/19/17 [History] Omeprazole [PriLOSEC] 40 mg PO DAILY 08/19/17 [History] OxyCODONE/APAP 10/325 [Percocet 10/325 MG] 1 tab PO Q6H PRN 08/19/17 [History] 3 Allergy/AdvReac Type Severity Reaction Status Date / Time No Known Allergies Allergy Verified 08/19/17 14:08 All systems: reviewed and no additional remarkable complaints except as stated Exam - Constitutional Vitals: Temp Pulse Resp BP Pulse Ox 97.8 F 61 15 157/71 98 08/20/17 12:01 08/20/17 12:01 08/20/17 12:01 08/20/17 12:01 08/20/17 12:01 General appearance: cooperative, no acute distress, obese - Head Head exam: Present: atraumatic, normal inspection, normocephalic - Eye Eye exam: Present: EOMI, normal appearance, PERRL Pupils: Present: normal accommodation - ENT ENT exam: Present: mucous membranes moist - Neck Neck exam: Present: normal inspection Additional comments: Tracheostomy midline. - Respiratory Respiratory exam: Present: CTAB. Absent: rales, respiratory distress, rhonchi, wheezes - Cardiovascular Cardiovascular exam: Present: RRR, +S1, +S2 - GI/Abdominal GI/Abdominal exam: Present: distended (obese), normal bowel sounds, soft. Absent: tenderness - Extremities Exam Extremities exam: Absent: joint swelling Additional comments: Right foot dressing C/D/I. - Neurological Exam Neurological exam: Present: alert, oriented X3, no focal deficits - Psychiatric Psychiatric exam: Present: normal affect, normal mood - Skin Skin exam: Present: dry, intact, normal color, warm Infectious Disease CN: Results - Labs CBC & Chem 7: 08/20/17 05:16 08/20/17 05:16 Consult Discharge Plan - Plan Referrals: Beverley Baum MD [Primary Care Provider] -
[2017-08-20] MEDS ORDERED: D5% in 0.9% NACL 1,000 ML IVC SCH (15:15)
[2017-08-20] MEDS ORDERED: Bupivacaine/Clonidine Syringe 1 EACH SYRINGE ONE (15:48)
--- NOTE | 2017-08-20 16:18 | Anesthesia Evaluation PreOp ---
Date of Encounter: 08/20/17 Time of Encounter: 16:16 - Past History Planned Operation: I&D Left calcaneous (osteomyelitis) Cardiac History: CHF, HTN, Hyperlipidemia, Other (cardiology consulted; limited echo with good EF; further cardiac testing would only cause delay and patient is low to intermediate risk for cardiovascular complications; peripheral vascular disease) Pulmonary History: Former smoker, COPD, Other (obesity hypoventilation syndrome ; uses trach at night) GUT DROPPER History: Denies Any Significant HX Other Medical History: Renal (ckd), Other (BMI 43) Anesthesia History: No Prior Anesthetic Complications Alcohol Use: none Drug use: none Medications and Allergies Albuterol Sulfate [Albuterol Inhaler] 2 puff IH Q4HR 11/16/15 [History] Allopurinol [Zyloprim 300 MG] 300 mg PO DAILY 11/16/15 [History] Levothyroxine [Synthroid] 75 mcg PO 0630 11/16/15 [History] Potassium Chloride [K-Tab ER] 3 tab PO BID 11/16/15 [History] Spironolactone [Aldactone] 2 tab PO BID 11/16/15 [History] Insulin Aspart Prot/Insuln Asp [Novolog Mix 70-30 Flexpen Syrn] 50 unit SQ BID 11/17/15 [History] Collagenase Oint [Santyl] 1 appl TP DAILY 08/19/17 [History] Doxycycline Hyclate [Vibramycin] 100 mg PO BID 08/19/17 [History] Furosemide [Lasix] 80 mg PO TID 08/19/17 [History] Omeprazole [PriLOSEC] 40 mg PO DAILY 08/19/17 [History] OxyCODONE/APAP 10/325 [Percocet 10/325 MG] 1 tab PO Q6H PRN 08/19/17 [History] 3 Allergy/AdvReac Type Severity Reaction Status Date / Time No Known Allergies Allergy Verified 08/19/17 14:08 - Meds/Allergy Pre-op Review Medications Reviewed: Yes Allergies Reviewed: Yes Beta Blockers on Current Med List: No Anesthesia Results - Labs 08/20/17 05:16 08/20/17 05:16 - Imaging EKG: report reviewed, image reviewed (SINUS RHYTHM VERSUS ECTOPIC ATRIAL RHYTHM) Additional studies: limited tte: Impressions: LVEF 55-60%. Normal LV chamber size and function. Mild concentric left ventricular hypertrophy. Anesthesia Exam Last Vital Signs Temp 97.8 F 08/20/17 15:10 Pulse 76 08/20/17 16:00 Resp 16 08/20/17 16:00 BP 134/57 08/20/17 16:00 Pulse Ox 92 08/20/17 16:00 Weight: 144 kg NPO (# of Hours): > 8 hrs - HEENT Pupil (Motor): Pupils equal, EOMI Mallampati: Trach (also trach; but M III) Teeth: Poor dentition Oral Opening: Greater than 3 - GUT DROPPER LOC: Oriented - Cardiac Rhythm: Regular Murmur: None - Pulmonary Breath Sounds: bilateral Clear (diminished) Respiratory Effort: Symmetrical Anesthesia Assess/Plan ASA Score: 4 Modified [place] Scale for Level of Consciousness: Cooperative, oriented, and tranquil Anesthetic Plan: MAC Monitoring Plan: Standard Monitors Recovery Plan: PACU
[2017-08-20] MEDS ORDERED: Propofol 500 MG/50 ML INFUS..BTL ONE (17:12)
--- NOTE | 2017-08-20 17:36 | Anesthesia Evaluation Post Op ---
Date of Encounter: 08/20/17 Time of Encounter: 17:34 - Vital Signs Vital Signs: 3 Vital Signs Time 1730 BP 128/57 Pulse 73 Resp 24 O2 Sat 94 - Lungs Lungs: Clear Ascult./Percussion (sound diminished, denies SOB) - Airway Airway: Non-obstructed (trach with intercanula in place) - Cardiovascular Regular Rate - Mental Status Mental Status: Alert & Oriented, Answers Appropriately - Pain Pain Scale: 0 - Nausea Vomiting Nausea Vomiting: Not Present - Hydration Hydration: NPO, Has not voided - Discharge PostOp Status: Transfer Patient to floor
--- NOTE | 2017-08-20 17:56 | Operative Note ---
Date of procedure: 08/20/17 Pre-op diagnosis: Osteomyelitis left calcaneus, Achilles tendon rupture, ulcer Post-op diagnosis: same Procedure: Irrigation and debridement/incision and drainage left calcaneus with bone biopsy and partial resection of the left calcaneus. Implants: None Anesthesia: [facility] [place] Surgeon: Marshal Mireles Estimated blood loss (cc): 25 Specimen: Bone from calcaneus sent for culture and pathology Condition: stable Disposition: floor Procedure in Detail: The patient was administered IV antibiotics. The patient was transported to the operative room and placed on operating table. Following anesthesia the extremity was scrubbed prepped and draped in the usual aseptic fashion. A timeout was performed. An incision was made and deepened through subcutaneous tissue with care taken to identify and retract all vital neurovascular structures. The incision was made proximal to the ulceration and was approximately 2.5 cm in length. The ulceration measured approximately 2 cm in diameter and full-thickness in depth. The incision was deepened and the Achilles tendon was identified and noted to be pulled off the back of the calcaneus and there is noted to be multiple small pieces of bone. The incision and drainage/irrigation and debridement included subcutaneous, epidermal, dermal, fascia, bone debridement. Partial calcaneal resection was performed and bone was sent to pathology to be analyzed and cultured. The EPAM System[employer] debrider was utilized to debride the tissue. The incision site was irrigated with pulsed debridement and copious amounts of normal saline and closed in a layered fashion the site was packed with iodoform gauze. A dry sterile dressing was applied. The patient tolerated the procedure and anesthesia well and was transported to the recovery room with vital signs stable and vascular status intact to both feet. The patient will return to the floor. The patient will need IV antibiotics. The patient will need daily dressing changes and change the packing. The patient will remain nonweightbearing.
[2017-08-20] MEDS: Insulin DETEMIR 100 UNIT/ML X5UNITS SQ SCH (20:45)
[2017-08-21] MEDS: Piperacillin/Tazobactam 3.375 GM in D5% in Water 50 ML IVPB SCH ×4 (03:48→23:38)
[2017-08-21] MEDS: *HR* Heparin 5,000 UNIT/ML VIAL SQ SCH ×2 (05:04→18:26)
--- NOTE | 2017-08-21 05:39 | Electrocardiograph Report ---
[place] [id number] Test Date: 2017-08-19 Pat Name: Star Zaman Department: 113 Room: 3B Gender: M Power Tong Operator: : [id number] Requested By: Flory Aguirre Order Number: [id number] Reading MD: Joe Avila MD Measurements Intervals [place] Rate: 73 P: 80 [place]: 185 QRS: 15 QRSD: 90 T: 51 QT: 395 QTc: 421 Interpretive Statements SINUS RHYTHM Electronically Signed On 08-21-2017 5:37:25 EST by Joe Avila MD
[2017-08-21 06:37] LABS: Calcium 9.3 mg/dL (8.6-10.8)
[2017-08-21] MEDS: Furosemide 40 MG TABLET PO SCH ×3 (07:47→20:27)
[2017-08-21] MEDS: Spironolactone 25 MG TABLET PO SCH ×2 (07:47→20:27)
[2017-08-21] MEDS: Insulin LISPRO 300 UNITS/3 ML VIAL SQ SCH ×4 (07:47→20:28)
[2017-08-21] MEDS: Vancomycin 1,750 MG in D5% in Water 500 ML IVPB SCH (10:06)
--- NOTE | 2017-08-21 12:52 | Infectious Disease Progress No ---
Date of Encounter: 08/21/17 Time of Encounter: 12:50 - Assessment and Plan (1) Acute osteomyelitis of left calcaneus Current Visit: Yes Status: Acute Location: left calcaneus. Causative organism Enterococcus based on wound culture from the office collected 08/19/17. Previous wound culture obtained at [place] grew staph aureus and streptococcus dysgalactiae. MRI of the left foot done at [place] showed findings consistent with OM. No SIRS criteria and the patient does not appear toxic. Blood cultures are NGTD x 2 sets. Podiatry consulted and following. Status post I & D 08/20/[address] Mireles. Operative note reviewed. Pathology and cultures are pending. Await intra-op findings/pathology/cultures to finalize before de-escalating antibiotics. Continue Vancomycin IV. Pharmacy to dose. Goal trough ~15. Continue Zosyn 3.375 grams IV Q8H. Duration of treatment depends on the clinical picture, but likely 6 weeks post- op. Monitor renal function and for drug toxicity and dose-adjust antibiotics. financial services manager to assist with discharge planning. Consult VAT for EPIC/PICC insertion. Will need weekly CBC, BUN/Cr, ESR, CRP, and Vanc trough (if applicable). Weekly EPIV/PICC care per protocol. Follow up with ID 09/09/17 at 0840. ID service will not be rounding again until next Saturday, but we will be available by phone to discuss antibiotic recommendations once cultures finalize. (2) Achilles tendon rupture Current Visit: Yes Status: Acute Management per the podiatry team. Qualifiers: Encounter type: initial encounter Laterality: left Qualified Code(s): S86.012A - Strain of left Achilles tendon, initial encounter (3) Diabetes mellitus Current Visit: Yes Status: Chronic Check HgbA1C. Recommend aggressive glucose monitoring and control to promote wound healing and prevent re-infection. Management per the primary team. Qualifiers: Diabetes mellitus type: type 2 Diabetes mellitus complication status: with kidney complications Diabetes mellitus complication detail: with chronic kidney disease Diabetes mellitus usp insulin use: with usp use Chronic kidney disease stage: stage 3 (moderate) Qualified Code(s): E11.22 - Type 2 diabetes mellitus with diabetic chronic kidney disease; N18.3 - Chronic kidney disease, stage 3 (moderate); N18.3 - Chronic kidney disease, stage 3 ( moderate); Z79.4 - intermediate card tender (current) use of insulin; Z79.4 - intermediate card tender ( current) use of insulin; Z79.4 - jail (current) use of insulin; Z79.4 - jail (current) use of insulin (4) Diastolic heart failure Current Visit: Yes Status: Chronic Qualifiers: Heart failure chronicity: chronic Qualified Code(s): I50.32 - Chronic diastolic (congestive) heart failure (5) Obesity hypoventilation syndrome Current Visit: Yes Status: Chronic (6) COPD (chronic obstructive pulmonary disease) Current Visit: Yes Status: Chronic Qualifiers: COPD type: unspecified COPD Qualified Code(s): J44.9 - Chronic obstructive pulmonary disease, unspecified (7) CKD (chronic kidney disease) Current Visit: Yes Status: Chronic Serum creatinine elevated. Unsure of baseline. A little worse today. Will ask pharmacy to help with dosing Vancomycin to avoid toxicity. Monitor closely. Dose-adjust antibiotics. Avoid nephrotoxins as able. Qualifiers: Chronic kidney disease stage: stage 3 (moderate) Qualified Code(s): N18.3 - Chronic kidney disease, stage 3 (moderate) - Subjective Interval history: Patient seen and examined. No acute events noted overnight. Status post left calcaneus I & D 08/20/[address] Mireles. Denies fevers, chills, or rigors. Denies headache or neck pain. Denies chest pain, shortness of breath, or cough. Denies nausea, vomiting, or diarrhea. Reports last BM was this morning. Denies urinary complaints. Denies pain at the surgical site due to neuropathy. Denies oral thrush or skin lesions. Infect Dis PN-Objective Data - Labs CBC & Chem 7: 08/20/17 05:16 08/21/17 06:10 Labs: Laboratory Results - last 24 hr 08/20/17 08/20/17 08/20/17 06:50 12:00 14:41 ESR Sodium Potassium Chloride Carbon Dioxide BUN Creatinine Est GFR ( Amer) Est GFR (Non-Af Amer) BUN/Creatinine Ratio Glucose POC Glucose 125 H 77 Calculated Osmolality Calcium C-Reactive Protein Vancomycin Trough 26.6 H* Random Vancomycin 08/20/17 08/20/17 08/21/17 14:41 15:13 06:10 ESR >= 130 H Sodium Potassium Chloride Carbon Dioxide BUN Creatinine Est GFR ( Amer) Est GFR (Non-Af Amer) BUN/Creatinine Ratio Glucose POC Glucose 62 98 H Calculated Osmolality Calcium C-Reactive Protein Vancomycin Trough Random Vancomycin 08/21/17 08/21/17 06:10 06:10 ESR Sodium 138 Potassium 4.0 Chloride 96 L Carbon Dioxide 35 H BUN 22 Creatinine 1.63 H Est GFR ( Amer) 51 L Est GFR (Non-Af Amer) 42 L BUN/Creatinine Ratio 13 Glucose 205 H POC Glucose Calculated Osmolality 295 Calcium 9.3 C-Reactive Protein 67 H Vancomycin Trough Random Vancomycin 15.4 Cultures: Cultures 08/19/17 16:02 Blood Culture - Preliminary Peripheral Venipuncture No growth. 08/19/17 15:55 Blood Culture - Preliminary Peripheral Venipuncture No growth. Exam - Constitutional Vitals: Temp Pulse Resp BP Pulse Ox 97.5 F L 75 16 142/60 93 08/21/17 11:13 08/21/17 11:13 08/21/17 11:13 08/21/17 11:13 08/21/17 11:13 General appearance: cooperative, no acute distress, obese - Head Head exam: Present: atraumatic, normal inspection, normocephalic - Eye Eye exam: Present: EOMI, normal appearance, PERRL Pupils: Present: normal accommodation - ENT ENT exam: Present: mucous membranes moist - Neck Neck exam: Present: normal inspection Additional comments: Tracheostomy midline. - Respiratory Respiratory exam: Present: CTAB. Absent: rales, respiratory distress, rhonchi, wheezes - Cardiovascular Cardiovascular exam: Present: RRR, +S1, +S2 - GI/Abdominal GI/Abdominal exam: Present: distended (obese), normal bowel sounds, soft. Absent: tenderness - Extremities Exam Extremities exam: Present: pedal edema (1+ LLE). Absent: joint swelling, tenderness Additional comments: Left foot dressing C/D/I. Chronic diminished sensation to the distal toes of the left foot. - Neurological Exam Neurological exam: Present: alert, oriented X3, no focal deficits - Psychiatric Psychiatric exam: Present: normal affect, normal mood - Skin Skin exam: Present: dry, intact, normal color, warm Consult Discharge Plan - Plan Referrals: Beverley Baum MD [Primary Care Provider] - Margo Giles, WINDING DEPARTMENT SUPERVISOR [Advanced Practice Nurse] - 09/09/17 8:40 am
--- NOTE | 2017-08-21 13:10 | Internal Med Progress Note ---
Date of Encounter: 08/21/17 Time of Encounter: 13:09 - Assessment and plan (1) Acute osteomyelitis of left calcaneus Current Visit: Yes Status: Acute Assessment and plan: Noted to have left heel ulcer for the last 3-4 weeks per , follows with Podiatry; MRI left foot at outside facility shows bone marrow edema of calcaneus c/w osteomyelitis. Has been on unknown oral antibiotics as outpatient. Podiatry on board, s/p irrigation, debridement and wound vac placement; Continue IV Vancomycin and Zosyn; Preliminary wound culture from 08/19 shows Enterococcus; f/up final culture and blood cultures. ID on board; f/up operative cultures. Patient needs 4-6 weeks of IV antibiotics and wound vac management at discharge; high school social studies teacher on board; pain control with PRN IV Morphine; (2) CKD (chronic kidney disease) Current Visit: Yes Status: Chronic Assessment and plan: serum creatinine at baseline, 1.63 today; avoid nephrotoxic agents; requires Vancomycin at this time; monitor closely; Qualifiers: Chronic kidney disease stage: stage 3 (moderate) Qualified Code(s): N18.3 - Chronic kidney disease, stage 3 (moderate) (3) Hypothyroidism Current Visit: Yes Status: Chronic Assessment and plan: continue Levothyroxine; Qualifiers: Hypothyroidism type: unspecified Qualified Code(s): E03.9 - Hypothyroidism , unspecified (4) Diabetes mellitus Current Visit: Yes Status: Chronic Assessment and plan: continue Accucheck blood glucose monitoring with basal bolus insulin regimen; blood sugars well-controlled, diabetic diet; Qualifiers: Diabetes mellitus type: type 2 Diabetes mellitus complication status: with kidney complications Diabetes mellitus complication detail: with chronic kidney disease Diabetes mellitus nursing home insulin use: with nursing home use Chronic kidney disease stage: stage 3 (moderate) Qualified Code(s): E11.22 - Type 2 diabetes mellitus with diabetic chronic kidney disease; N18.3 - Chronic kidney disease, stage 3 (moderate); N18.3 - Chronic kidney disease, stage 3 ( moderate); Z79.4 - prison (current) use of insulin; Z79.4 - prison ( current) use of insulin; Z79.4 - watermelon inspector (current) use of insulin; Z79.4 - prison (current) use of insulin (5) Diastolic heart failure Current Visit: Yes Status: Chronic Assessment and plan: Echo shows preserved EF, mild concentric LVH. On LASIX and Spironolactone; patient does not want to adhere to fluid restriction; urine output monitoring; Qualifiers: Heart failure chronicity: chronic Qualified Code(s): I50.32 - Chronic diastolic (congestive) heart failure (6) Obesity hypoventilation syndrome Current Visit: Yes Status: Chronic Assessment and plan: on chronic tracheostomy, not on O2/NIPPV; (7) COPD (chronic obstructive pulmonary disease) Current Visit: Yes Status: Chronic Assessment and plan: not in acute exacerbation; continue PRN bronchodilators and supplemental O2; Qualifiers: COPD type: unspecified COPD Qualified Code(s): J44.9 - Chronic obstructive pulmonary disease, unspecified - Subjective Interval history: Noted to be irritable about being in the hospital; reports no left foot pain; received wound vac today, no new complaints; tolerates oral diet; - Constitutional Vitals: Temp Pulse Resp BP Pulse Ox 97.5 F L 75 16 142/60 93 08/21/17 11:13 08/21/17 11:13 08/21/17 11:13 08/21/17 11:13 08/21/17 11:13 General appearance: Present: A&O X 3, morbidly obese, answers questions appropriately - Respiratory Respiratory exam: Present: CTAB (anterolaterally). Absent: accessory muscle use , rales, rhonchi, wheezes - Cardiovascular Cardiovascular exam: Present: RRR, +S1, +S2. Absent: diastolic murmur, gallop, rubs, systolic murmur - GI/Abdominal GI/Abdominal exam: Present: normal bowel sounds, soft (obese), no peritoneal signs. Absent: distended, tenderness - Extremities Exam Extremities exam: Present: pedal edema, warm, radial pulses palpable and symmetrical. Absent: calf tenderness, cyanotic Additional comments: Left foot in surgical dressing, wound vac in place Internal Medicine: Result - Labs CBC & Chem 7: 08/20/17 05:16 08/21/17 06:10 Labs: BMP 08/21/17 06:10 Sodium 138 Potassium 4.0 Chloride 96 L Carbon Dioxide 35 H BUN 22 Creatinine 1.63 H Glucose 205 H Calcium 9.3 Consult Discharge Plan - Plan Referrals: Margo Giles CNP [Advanced Practice Nurse] - 09/09/17 8:40 Beverley Desouza MD [Primary Care Provider] -
[2017-08-21] MEDS ORDERED: Lidocaine -MPF 1% 2 ML VIAL INFILT ONE (15:41)
--- NOTE | 2017-08-21 16:58 | Podiatry Progress Note ---
Date of Encounter: 08/21/17 Time of Encounter: 12:30 - Assessment and Plan (1) Acute osteomyelitis of left calcaneus Current Visit: Yes Status: Acute Assessment: Full thickness ulceration of posterior aspect of left calcaneus- chronic, non healing with drainage and MRI consistent with osteomyelitis s/p Irrigation and debridement/incision and drainage left calcaneus with bone biopsy and partial resection of the left calcaneus. 08/21 Dressing and packing removed- soaked packing in saline prior to removal- patient tolerated well- no complications Irrigated wound with saline Application of wound vac complete at bedside using small black simplace sponge which was tracked to medial aspect of left foot, tegaderm was applied to all surrounding skin for protection The wound vac was connected to 125mmhg low cont suction Please monitor output/accurate documentation Good suction was obtained without a leak Call with any issues or concerns Will need MWF vac changes per nurse Will need SW on board for LTIV antibiotics and wound vac upon discharge, will likely need 4-6 weeks of vac therapy. Patient is to be limited, protected weight bearing of LLE, weight to forefoot only, no pressure to heel. Please wear CAM boot with ambulation if able to tolerate with vac in place. 08/20 Will plan to take to OR today- per Sessions- for irrigation and debridement of left calcaneus with application of wound vac. internal medicine was consulted and managing medical comorbidities We will consult infectious disease for IV antibiotics for osteomyelitis of the calcaneus and will likely need 6 weeks of antibiotics. Cardiology has been consulted and cleared patient for surgical intervention The heel will need to be offloaded at all times with no pressure on the posterior aspect of the heel and pillows floating the heel. At discharge the patient will likely need a wound VAC, IV antibiotics, possible assisted device to remain nonweightbearing at home. Social work will be consulted. Dressing was removed and changed at bedside, cleanse with saline, pat dry, adaptic, 4x4 kerlex and ghada were applied, cam boot reapplied Patient tolerated well. at bedside, understands plan is for surgical intervention today- Sessions states he will be at bedside shortly to speak with them. (2) Diabetes mellitus Current Visit: Yes Status: Chronic Strict control to promote healing and prevent further complication Qualifiers: Diabetes mellitus type: type 2 Diabetes mellitus complication status: with kidney complications Diabetes mellitus complication detail: with chronic kidney disease Diabetes mellitus terminal superintendent insulin use: with terminal superintendent use Chronic kidney disease stage: stage 3 (moderate) Qualified Code(s): E11.22 - Type 2 diabetes mellitus with diabetic chronic kidney disease; N18.3 - Chronic kidney disease, stage 3 (moderate); N18.3 - Chronic kidney disease, stage 3 ( moderate); Z79.4 - joint terminal attack controller (current) use of insulin; Z79.4 - joint terminal attack controller ( current) use of insulin; Z79.4 - joint terminal attack controller (current) use of insulin; Z79.4 - halfway (current) use of insulin Subjective Interval history: 08/21/17 Patient is s/p Irrigation and debridement/incision and drainage left calcaneus with bone biopsy and partial resection of the left calcaneus PO day # 1. Patient resting comfortably on arrival. Dry dressing intact. Nurse states she has not had to change dressing. Patient denies any pain. Patient is currently afebrile. Patient denies any calf pain or SOB. has presented following an Achilles rupture and non healing ulceration of the left calcaneus. Opon examination, decided yesterday that it would be best to take patient for surgical irrigation and debridement with application of wound vac. Patient was noted to have elevated ESR >130 and CRP of 53 with MRI positive for changes consistent with osteomyelitis. Patient denies any fevers, chills, n/v or flu like symptoms. Denies any chest pain or shortness of breath. patient has been NPO since midnight pending surgery today. Dressing to LLE clean dry and intact and CAM boot in place Objective - Vital Signs Vital Signs: Vital Signs Temp Pulse Resp BP Pulse Ox 08/21/17 14:55 98.4 F 81 16 144/70 92 08/21/17 11:13 97.5 F L 75 16 142/60 93 08/21/17 06:58 98.2 F 86 20 152/78 90 08/21/17 04:13 98.8 F 91 16 151/78 91 08/20/17 23:17 98.3 F 86 16 168/83 93 08/20/17 21:01 94 08/20/17 21:00 98.2 F 93 16 149/78 93 08/20/17 19:42 84 16 179/92 94 08/20/17 19:20 98.3 F 76 16 160/81 96 08/20/17 18:53 98.5 F 80 18 125/53 92 08/20/17 18:25 98.7 F 82 16 141/74 95 08/20/17 17:57 97.8 F 75 18 134/89 92 08/20/17 17:54 97.8 F 75 18 134/89 92 Intake and Output 08/21/17 08/21/17 08/21/17 07:59 15:59 23:59 Intake Total 350 / 350 600 / 600 800 / 800 Output Total 625 / 625 600 / 600 Balance -275 / -275 0 / 0 800 / 800 Intake: IV Fluids 50 / 50 Zosyn 3.375 GM In Dextrose 5% ( 50 / 50 ADD-Goldvein) 50 ML @ 12.5 mls/ hr IVPB Q8H CARISA Rx#:[id number] Oral 300 / 300 600 / 600 800 / 800 Output: Urine 625 / 625 600 / 600 Other: Meal Lunch Percent of Meal Consumed 75% Stool Size Large Stool Consistency loose Stool Characteristics Pasty Stool Color Brown # Bowel Movements 1 2 Weight 144.378 kg Blood Glucose* 220 185 179 Patient Weight 08/21/17 23:59 Weight 144.378 kg - Exam Exam: Awake, alert and oriented Pulses palpable DP/PT cap refill <3 seconds muscle strength 3/5 Sensation intact to moderate touch No calf pain with manual compression s/p Irrigation and debridement/incision and drainage left calcaneus with bone biopsy and partial resection of the left calcaneus. Dressing and packing removed from incision site- patient tolerated well Small amount of bloody drainage noted after packing removal. No purulent drainage. Mild periwound erythema and edema which is to be expected Wound bed is clean of signs of infection Wound measures approx 4wva8oll8.5cm with 3cm tunnel to 12oclock where debridement was complete - Lab Result Diagrams: 08/20/17 05:16 08/21/17 06:10 Labs: Abnormal lab results MCHC 30.7 g/dL (31.6-35.5) L 08/20/17 05:16 RDW 14.8 % (11.5-14.5) H 08/20/17 05:16 ESR >= 130 mm/hr (0-10) H 08/21/17 06:10 Chloride 96 mEq/L (98-109) L 08/21/17 06:10 Carbon Dioxide 35 mEq/L (19-29) H 08/21/17 06:10 Creatinine 1.63 mg/dL (0.72-1.25) H 08/21/17 06:10 Est GFR ( Amer) 51 (> 60) L 08/21/17 06:10 Est GFR (Non-Af Amer) 42 (> 60) L 08/21/17 06:10 Glucose 205 mg/dL (70-99) H 08/21/17 06:10 POC Glucose 98 (58-89) H 08/20/17 15:13 Total Bilirubin < 0.2 mg/dL (0.2-1.2) L 08/19/17 16:02 C-Reactive Protein 67 mg/L (Less than 5) H 08/21/17 06:10 Albumin 2.6 g/dL (3.5-5.0) L 08/19/17 16:02 Globulin 4.7 g/dL (2.4-3.5) H 08/19/17 16:02 Albumin/Globulin Ratio 0.6 (1.1-2.2) L 08/19/17 16:02 Vancomycin Trough 26.6 mcg/mL (10-20) H* 08/20/17 14:41 Microbiology, Last 48 Hours 08/19/17 16:02 Blood Culture - Preliminary Peripheral Venipuncture No growth. 08/19/17 15:55 Blood Culture - Preliminary Peripheral Venipuncture No growth. Consult Discharge Plan - Plan Referrals: Margo Giles CNP [Advanced Practice Nurse] - 09/09/17 8:40 am Beverley Baum MD [Primary Care Provider] -
[2017-08-21] MEDS: Insulin DETEMIR 100 UNIT/ML X5UNITS SQ SCH (20:27)
[2017-08-22] MEDS ORDERED: Ipratropium/Albuterol Neb 3 ML IH PRN (06:13)
[2017-08-22 06:17] LABS: Calcium 8.9 mg/dL (8.6-10.8); Potassium 3.3 mEq/L (3.5-4.5)
[2017-08-22] MEDS: *HR* Heparin 5,000 UNIT/ML VIAL SQ SCH ×2 (06:47→18:39)
[2017-08-22] MEDS: Furosemide 40 MG TABLET PO SCH ×3 (08:10→21:05)
[2017-08-22] MEDS: Insulin LISPRO 300 UNITS/3 ML VIAL SQ SCH ×4 (08:10→21:04)
[2017-08-22] MEDS: Spironolactone 25 MG TABLET PO SCH ×2 (08:10→21:05)
[2017-08-22] MEDS: Vancomycin 1,750 MG in D5% in Water 500 ML IVPB SCH (08:13)
[2017-08-22] MEDS: Acetaminophen 325 MG TABLET PO PRN (08:52)
[2017-08-22] MEDS ORDERED: Aminoglycoside Consult 1 EACH MC ONE (08:57)
[2017-08-22] MEDS: Piperacillin/Tazobactam 3.375 GM in D5% in Water 50 ML IVPB SCH ×2 (10:36→21:40)
[2017-08-22] MEDS ORDERED: Ipratropium/Albuterol Neb 3 ML ONE (11:53)
[2017-08-22] MEDS: Ipratropium/Albuterol Neb 3 ML IH SCH ×4 (11:56→23:23)
--- NOTE | 2017-08-22 14:09 | Internal Med Progress Note ---
Date of Encounter: 08/22/17 Time of Encounter: 14:08 - Assessment and plan (1) Acute osteomyelitis of left calcaneus Current Visit: Yes Status: Acute Assessment and plan: MRI left foot at outside facility shows bone marrow edema of calcaneus c/w osteomyelitis. Has been on unknown oral antibiotics as outpatient. Podiatry on board, s/p irrigation, debridement and wound vac placement; Preliminary wound culture from 08/19 shows Enterococcus, resistant to Vancomycin, sensitive to Ampicillin; start IV Unasyn, f/up final culture and blood cultures. ID on board; f/up operative cultures. Patient needs 4-6 weeks of IV antibiotics and wound vac management at discharge; social science manager on board; pain control with PRN IV Morphine; (2) CKD (chronic kidney disease) Current Visit: Yes Status: Chronic Assessment and plan: serum creatinine at baseline; avoid nephrotoxic agents; requires Vancomycin at this time; monitor closely; Qualifiers: Chronic kidney disease stage: stage 3 (moderate) Qualified Code(s): N18.3 - Chronic kidney disease, stage 3 (moderate) (3) Hypothyroidism Current Visit: Yes Status: Chronic Assessment and plan: continue Levothyroxine; Qualifiers: Hypothyroidism type: unspecified Qualified Code(s): E03.9 - Hypothyroidism , unspecified (4) Diabetes mellitus Current Visit: Yes Status: Chronic Assessment and plan: continue Accucheck blood glucose monitoring with basal bolus insulin regimen; blood sugars noted to be elevated, will increase basal insulin. diabetic diet; Qualifiers: Diabetes mellitus type: type 2 Diabetes mellitus complication status: with kidney complications Diabetes mellitus complication detail: with chronic kidney disease Diabetes mellitus m[facility]p insulin use: with m[facility]p use Chronic kidney disease stage: stage 3 (moderate) Qualified Code(s): E11.22 - Type 2 diabetes mellitus with diabetic chronic kidney disease; N18.3 - Chronic kidney disease, stage 3 (moderate); N18.3 - Chronic kidney disease, stage 3 ( moderate); Z79.4 - long-term (current) use of insulin; Z79.4 - long-term ( current) use of insulin; Z79.4 - long-term (current) use of insulin; Z79.4 - long-term (current) use of insulin (5) Diastolic heart failure Current Visit: Yes Status: Chronic Assessment and plan: Echo shows preserved EF, mild concentric LVH. On LASIX and Spironolactone; will decrease Lasix as he appears mildly dry; patient does not want to adhere to fluid restriction; urine output monitoring; Qualifiers: Heart failure chronicity: chronic Qualified Code(s): I50.32 - Chronic diastolic (congestive) heart failure (6) Obesity hypoventilation syndrome Current Visit: Yes Status: Chronic Assessment and plan: on chronic tracheostomy, not on O2/NIPPV; continue scheduled bronchodilators; tracheostomy cap to be removed while asleep; (7) COPD (chronic obstructive pulmonary disease) Current Visit: Yes Status: Chronic Assessment and plan: not in acute exacerbation; continue scheduled bronchodilators and supplemental O2; Qualifiers: COPD type: unspecified COPD Qualified Code(s): J44.9 - Chronic obstructive pulmonary disease, unspecified - Subjective Interval history: Continues to request to be discharged home; reports some burning in both his feet which he usually has at home; no fever/chills, nausea/vomiting; Noted to have had a Rapid Response this morning and mental status improved with breathing treatments; - Constitutional Vitals: Temp Pulse Resp BP Pulse Ox 98.4 F 74 16 134/72 91 08/22/17 11:34 08/22/17 11:34 08/22/17 11:56 08/22/17 11:34 08/22/17 11:56 General appearance: Present: A&O X 3, morbidly obese, answers questions appropriately - Respiratory Respiratory exam: Present: CTAB (coarse breath sounds B/L, inttermittent rhonchi ). Absent: accessory muscle use, rales, rhonchi, wheezes - Cardiovascular Cardiovascular exam: Present: RRR, +S1, +S2. Absent: diastolic murmur, gallop, rubs, systolic murmur - GI/Abdominal GI/Abdominal exam: Present: normal bowel sounds, soft (obese), no peritoneal signs. Absent: distended, tenderness - Extremities Exam Extremities exam: Present: warm, radial pulses palpable and symmetrical. Absent : calf tenderness, cyanotic, pedal edema Additional comments: left foot in surgical dressing, wound vac in place Internal Medicine: Result - Labs CBC & Chem 7: 08/20/17 05:16 08/22/17 04:34 Labs: BMP 08/22/17 04:34 Sodium 139 Potassium 3.3 L Chloride 95 L Carbon Dioxide 37 H BUN 18 Creatinine 1.57 H Glucose 147 H Calcium 8.9 Consult Discharge Plan - Plan Referrals: Margo Giles CNP [Advanced Practice Nurse] - 09/09/17 8:40 am Beverley Baum MD [Primary Care Provider] -
[2017-08-22] MEDS ORDERED: Ampicillin/Sulbactam 3,000 MG in 0.9 % Sodium Chloride 150 ML IVPB SCH (18:00)
[2017-08-22] MEDS: Insulin DETEMIR 100 UNIT/ML X5UNITS SQ SCH (21:04)
[2017-08-23] MEDS ORDERED: Ampicillin 2 GM in 0.9 % Sodium Chloride 150 ML IVPB SCH
[2017-08-23] MEDS: Ipratropium/Albuterol Neb 3 ML IH SCH ×4 (04:21→16:42)
[2017-08-23] MEDS: SODIUM CHLORIDE 0.9% IVPB SCH ×4 (04:34→16:12)
[2017-08-23] MEDS: AMPICILLIN IVPB SCH ×4 (04:34→16:12)
[2017-08-23 04:53] LABS: Basophils % 0.4 %; Eosinophils # 0.2 K/mcL (0.0-0.6); Eosinophils % 2.8 %; Hematocrit 41.1 % (37.5-50.1); Hemoglobin 12.7 g/dL (12.9-16.9); Immature Granulocytes % 0.3 % (0-4); Lymphocytes # 1.2 K/mcL (0.6-4.6); Lymphocytes % 18.2 %; Mean Corpuscular HGB Conc 30.9 g/dL (31.6-35.5); Mean Corpuscular Hemoglobin 28.8 pg (28.0-33.3); Mean Corpuscular Volume 93.2 fL (83.0-100.0); Mean Platelet Volume 9.8 fL (9.4-12.4); Monocytes # 0.5 K/mcL (0.0-1.3); Monocytes % 7.1 %; Neutrophils # 4.8 K/mcL (1.6-8.9); Platelet Count 220 K/mcL (140-400); Red Blood Count 4.41 M/mcL (4.19-5.50); Red Cell Distribution Width 14.6 % (11.5-14.5); Segmented Neutrophils % 71.2 %
[2017-08-23 05:05] LABS: Calcium 9.2 mg/dL (8.6-10.8); Potassium 3.4 mEq/L (3.5-4.5)
[2017-08-23] MEDS: *HR* Heparin 5,000 UNIT/ML VIAL SQ SCH ×2 (05:39→18:00)
[2017-08-23] MEDS ORDERED: Insulin DETEMIR 100 UNIT/ML X5UNITS SQ SCH (09:00)
[2017-08-23] MEDS: Insulin LISPRO 300 UNITS/3 ML VIAL SQ SCH ×3 (09:42→18:01)
[2017-08-23] MEDS: Furosemide 40 MG TABLET PO SCH ×2 (09:42→16:12)
[2017-08-23] MEDS: Spironolactone 25 MG TABLET PO SCH (09:43)
[2017-08-23] MEDS: Acetaminophen 325 MG TABLET PO PRN (11:36)
[2017-08-23] MEDS ORDERED: Potassium Chloride Elixir 20 MEQ/15 ML UDC PO ONE (12:44)
[2017-08-23] MEDS ORDERED: *HR* HYDROmorphone (PF) 1 MG/ML SYRINGE IVP ONE (13:00)
[2017-08-23] MEDS ORDERED: *HR* OxyCODONE/APAP 5/325 TABLET PO PRN (13:46)
[2017-08-23 15:26] VITALS: BP 130/69
--- NOTE | 2017-08-23 15:28 | Discharge Summary ---
Date of Encounter: 08/23/17 Time of Encounter: 13:00 - Discharge Diagnosis (1) Acute osteomyelitis of left calcaneus Priority: Primary Status: Acute (2) CKD (chronic kidney disease) Priority: Secondary Status: Chronic Qualifiers: Chronic kidney disease stage: stage 3 (moderate) Qualified Code(s): N18.3 - Chronic kidney disease, stage 3 (moderate) (3) Hypothyroidism Priority: Secondary Status: Chronic Qualifiers: Hypothyroidism type: unspecified Qualified Code(s): E03.9 - Hypothyroidism , unspecified (4) Diabetes mellitus Priority: Secondary Status: Chronic Qualifiers: Diabetes mellitus type: type 2 Diabetes mellitus complication status: with kidney complications Diabetes mellitus complication detail: with chronic kidney disease Diabetes mellitus group home insulin use: with lobsterman use Chronic kidney disease stage: stage 3 (moderate) Qualified Code(s): E11.22 - Type 2 diabetes mellitus with diabetic chronic kidney disease; N18.3 - Chronic kidney disease, stage 3 (moderate); N18.3 - Chronic kidney disease, stage 3 ( moderate); Z79.4 - alf (current) use of insulin; Z79.4 - termite helper ( current) use of insulin; Z79.4 - termite helper (current) use of insulin; Z79.4 - termite helper (current) use of insulin (5) Diastolic heart failure Priority: Secondary Status: Chronic Qualifiers: Heart failure chronicity: chronic Qualified Code(s): I50.32 - Chronic diastolic (congestive) heart failure (6) Obesity hypoventilation syndrome Priority: Secondary Status: Chronic (7) COPD (chronic obstructive pulmonary disease) Priority: Secondary Status: Chronic Qualifiers: COPD type: unspecified COPD Qualified Code(s): J44.9 - Chronic obstructive pulmonary disease, unspecified - Discharge Medications Prescriptions: Ampicillin Sodium 2 gm IJ Q4H 37 Days vial Home Medications: Albuterol Sulfate [Albuterol Inhaler] 2 puff IH Q4HR 11/16/15 [History] Allopurinol [Zyloprim 300 MG] 300 mg PO DAILY 11/16/15 [History] Levothyroxine [Synthroid] 75 mcg PO 0630 11/16/15 [History] Potassium Chloride [K-Tab ER] 3 tab PO BID 11/16/15 [History] Spironolactone [Aldactone] 2 tab PO BID 02/10/16 [History] Insulin Aspart Prot/Insuln Asp [Novolog Mix 70-30 Flexpen Syrn] 50 unit SQ BID 11/17/15 [History] Collagenase Oint [Santyl] 1 appl TP DAILY 08/19/17 [History] Furosemide [Lasix] 80 mg PO TID 08/19/17 [History] Omeprazole [PriLOSEC] 40 mg PO DAILY 08/19/17 [History] Ampicillin Sodium 2 gm IJ Q4H 37 Days vial 08/23/17 [Rx] OxyCODONE/APAP 10/325 [Percocet 10/325 MG] 1 tab PO Q6H PRN #20 08/23/17 [Rx] Allergies/Adverse Reactions: 3 Allergy/AdvReac Type Severity Reaction Status Date / Time No Known Allergies Allergy Verified 08/19/17 14:08 Date of admission: 08/19/17 14:48 Primary care physician: Beverley Baum MD Consults: 08/19/17 14:55 Consult to Insurance Account Assistant [CONS] Routine Reason for SW Consult: Pt lives with daughter, poss need for HH and poss for IV infusion. 08/19/17 15:03 Consult to Cardiology [CONS] Routine Comment: Consulting Provider: Cardiology [place] Reason for Consult: preop clearance Time Notified: 15:03 Call Completed: No 08/19/17 15:17 Consult to Respiratory Therapy [CONS] Routine Reason for Consult: trach care Time Notified: 15:17 Call Completed: No 08/19/17 16:32 Consult to Podiatry [CONS] Routine Consulting Provider: Podiat[facility] Reason for Consult: Acute osteomyelitis of the calcaneus Time Notified: 16:32 Call Completed: Yes 08/19/17 16:33 Consult to Infectious Diseases [CONS] Routine Consulting Provider: [facility] Reason for Consult: Acute osteomyelitis of the left calcaneus Time Notified: 16:33 Call Completed: Yes 08/21/17 14:48 Consult to PICC team [Consult to Invasive Line Access Team] [CONS] Routine Reason for Consult: lobsterman ATB Line Type: EPIV 08/21/17 15:41 Consult to Invasive Line Access Team [CONS] Routine Reason for Consult: Picc Line Insertion Line Type: PICC Discharging clinician: Xi Vargas Anticipated date of discharge: 08/23/17 - Patient Status Disposition: Home Health Service Condition: Fair Functional capacity at discharge: uses cane/walker (non-weightbearing on left foot) Overall status at discharge: patient is progressing back to baseline - Discharge Instructions Instructions: Ampicillin (Injection) Follow Up With: Margo Giles CNP [Advanced Practice Nurse] - 09/09/17 8:40 am Beverley Baum MD [Primary Care Provider] - Additional Instructions: F/up with PCP in 1-2 weeks F/up with Podiatry as scheduled F/up with ID as scheduled - Diet and Activity Activity: ambulate only with your walker (non weight bearing on left foot) Diet: diabetic diet, low fat, low cholesterol, low salt diet, other (renal diet) Hospital course: Mr. Zaman is a 67 year old male with the above medical problems who was admitted with left heel ulcer. Patient had left Achilles tendon rupture with avulsion fracture of calcaneus and has been seeing Podiatry for left heel ulcer , and was referred to ER as MRI left foot done at an outside hospital showed marrow edema, suggestive of osteomyelitis. Patient was started on broad- spectrum IV antibiotics-vancomycin and Zosyn. Patient has history of chronic CHF, cardiology was consulted for preoperative clearance and he is cleared with low to intermediate risk. Echocardiogram showed preserved ejection fraction. Podiatry was consulted and patient underwent irrigation and debridement, bone biopsy and partial resection of left calcaneus with wound VAC placement. Wound culture eventually grew enterococcus and patient is being continued on IV ampicillin. Infectious diseases was consulted and recommended 6 weeks of IV antibiotics for osteomyelitis. Home IV infusion has been a mention patient is otherwise medically stable for discharge home with IV antibiotics and physical therapy. - Time Spent with Patient Total time spent providing and/or coordinating discharge services: Greater than 30 minutes (45 min) - Constitutional Vitals: Temp Pulse Resp BP Pulse Ox 98.1 F 71 15 143/77 94 08/23/17 11:07 08/23/17 11:07 08/23/17 11:51 08/23/17 11:07 08/23/17 11:51 General appearance: Present: A&O X 3, morbidly obese, answers questions appropriately - Respiratory Respiratory exam: Present: CTAB. Absent: accessory muscle use, rales, rhonchi, wheezes - Extremities Exam Extremities exam: Present: warm, radial pulses palpable and symmetrical. Absent : calf tenderness, cyanotic, pedal edema Additional comments: left foot in surgical dressing and wound vac over posterolateral foot
--- NOTE | 2017-08-23 15:32 | Physician Discharge Referral ---
Home Health/Hosp Referral Info Transfer to: Home Health Attending Provider: Xi Vargas Provider in Charge Post Discharge: PCP - Diagnosis (1) Acute osteomyelitis of left calcaneus Priority: Primary Status: Acute (2) CKD (chronic kidney disease) Priority: Secondary Status: Chronic (3) Hypothyroidism Priority: Secondary Status: Chronic (4) Diabetes mellitus Priority: Secondary Status: Chronic (5) Diastolic heart failure Priority: Secondary Status: Chronic (6) Obesity hypoventilation syndrome Priority: Secondary Status: Chronic (7) COPD (chronic obstructive pulmonary disease) Priority: Secondary Status: Chronic - Respiratory Orders Smoking Cessation: Smoking cessation has been advised. For more information, call the [place] Tobacco Quit Line at 1-427-PBUE-NOW. - Diet/Nutrition Diet/Nutrition Orders: Renal, Cardiac, No Concentrated Sweets (diabetic) - Activity Activity Orders: Ambulate, Walker - Services Needed Following services are medically necessary services: Nursing, Physical Therapy, Occupational Therapy, Home Infusion - Transfer Medications Prescriptions: Ampicillin Sodium 2 gm IJ Q4H 37 Days vial Home Medications: Albuterol Sulfate [Albuterol Inhaler] 2 puff IH Q4HR 11/16/15 [History] Allopurinol [Zyloprim 300 MG] 300 mg PO DAILY 11/16/15 [History] Levothyroxine [Synthroid] 75 mcg PO 0630 11/16/15 [History] Potassium Chloride [K-Tab ER] 3 tab PO BID 11/16/15 [History] Spironolactone [Aldactone] 2 tab PO BID 11/16/15 [History] Insulin Aspart Prot/Insuln Asp [Novolog Mix 70-30 Flexpen Syrn] 50 unit SQ BID 11/17/15 [History] Collagenase Oint [Santyl] 1 appl TP DAILY 08/19/17 [History] Furosemide [Lasix] 80 mg PO TID 08/19/17 [History] Omeprazole [PriLOSEC] 40 mg PO DAILY 08/19/17 [History] Ampicillin Sodium 2 gm IJ Q4H 37 Days vial 08/23/17 [Rx] OxyCODONE/APAP 10/325 [Percocet 10/325 MG] 1 tab PO Q6H PRN #20 08/23/17 [Rx] Allergies/Adverse Reactions: 3 Allergy/AdvReac Type Severity Reaction Status Date / Time No Known Allergies Allergy Verified 08/19/17 14:08 Certification: Further, I certify that my clinical findings support that this patient is homebound (i.e. absences from home require considerable and taxing effort and are for medical reasons or buddhist services or infrequently or short duration when for other reasons) because: Homebound Reason: Patient requires assistance of a person or device to safely leave home, Post-surgery restriction and or conditions limit ability to leave home, Leaving home requires considerable and taxing effort due to condition Attestation: My signature below is to certify that this patient is under my care and that I, or nurse practitioner, or a physician's bankruptcy assistant working with me, has a face-to -face encounter with this patient.
--- NOTE | 2017-08-23 17:23 | Podiatry Progress Note ---
Date of Encounter: 08/23/17 Time of Encounter: 12:30 - Assessment and Plan (1) Acute osteomyelitis of left calcaneus Current Visit: Yes Status: Acute Assessment: Full thickness ulceration of posterior aspect of left calcaneus- chronic, non healing with drainage and MRI consistent with osteomyelitis s/p Irrigation and debridement/incision and drainage left calcaneus with bone biopsy and partial resection of the left calcaneus. 08/23 Wound vac intact on arrival- nurse at bedside, states will be changing soon Ordered Dilaudid 0.5mg 1xonly to be administered prior to change of vac. Wound vac paperwork was faxed yesterday- patient d/c pending insurance coverage and acceptance for wound vac and antibiotic coverage as well as [facility]. SW on board VS stable. Antibiotic coverage switched to Unasyn per internal med based on presence of VRE returned in cultures Will need to follow up in clinic 1 week after discharge with or BURT ramires Dressing change orders are in place for MWF changes while inpatient Call with any issues or concerns 08/21 Dressing and packing removed- soaked packing in saline prior to removal- patient tolerated well- no complications Irrigated wound with saline Application of wound vac complete at bedside using small black simplace sponge which was tracked to medial aspect of left foot, tegaderm was applied to all surrounding skin for protection The wound vac was connected to 125mmhg low cont suction Please monitor output/accurate documentation Good suction was obtained without a leak Call with any issues or concerns Will need MWF vac changes per nurse Will need SW on board for LTIV antibiotics and wound vac upon discharge, will likely need 4-6 weeks of vac therapy. Patient is to be limited, protected weight bearing of LLE, weight to forefoot only, no pressure to heel. Please wear CAM boot with ambulation if able to tolerate with vac in place. 08/20 Will plan to take to OR today- per - for irrigation and debridement of left calcaneus with application of wound vac. internal medicine was consulted and managing medical comorbidities We will consult infectious disease for IV antibiotics for osteomyelitis of the calcaneus and will likely need 6 weeks of antibiotics. Cardiology has been consulted and cleared patient for surgical intervention The heel will need to be offloaded at all times with no pressure on the posterior aspect of the heel and pillows floating the heel. At discharge the patient will likely need a wound VAC, IV antibiotics, possible assisted device to remain nonweightbearing at home. Social work will be consulted. Dressing was removed and changed at bedside, cleanse with saline, pat dry, adaptic, 4x4 kerlex and ghada were applied, cam boot reapplied Patient tolerated well. at bedside, understands plan is for surgical intervention today- states he will be at bedside shortly to speak with them. (2) Diabetes mellitus Current Visit: Yes Status: Chronic Strict control to promote healing and prevent further complication Qualifiers: Diabetes mellitus type: type 2 Diabetes mellitus complication status: with kidney complications Diabetes mellitus complication detail: with chronic kidney disease Diabetes mellitus terminal clerk insulin use: with [facility] use Chronic kidney disease stage: stage 3 (moderate) Qualified Code(s): E11.22 - Type 2 diabetes mellitus with diabetic chronic kidney disease; N18.3 - Chronic kidney disease, stage 3 (moderate); N18.3 - Chronic kidney disease, stage 3 ( moderate); Z79.4 - snf (current) use of insulin; Z79.4 - terminal manager ( current) use of insulin; Z79.4 - terminal manager (current) use of insulin; Z79.4 - terminal manager (current) use of insulin Subjective Interval history: 08/23/17 Patient is PO day #3. Laying in bed on arrival- wound vac is intact however is not running, RN states that the drainage in the tubing became clogged and it would not run, states they disconnected it and are getting ready to change it. Patient states he is in pain and requesting pain medication prior to change. Patient states he is hurting more today than he was yesterday. States he doesnt feel well because of the pain. Patient denies any fevers, chills, n/v or flu like symptoms. Cultures with sensitivity were returned and called to internal medicine- antibiotic coverage was changed accordingly. 08/21/17 Patient is s/p Irrigation and debridement/incision and drainage left calcaneus with bone biopsy and partial resection of the left calcaneus PO day # 1. Patient resting comfortably on arrival. Dry dressing intact. Nurse states she has not had to change dressing. Patient denies any pain. Patient is currently afebrile. Patient denies any calf pain or SOB. has presented following an Achilles rupture and non healing ulceration of the left calcaneus. Opon examination, decided yesterday that it would be best to take patient for surgical irrigation and debridement with application of wound vac. Patient was noted to have elevated ESR >130 and CRP of 53 with MRI positive for changes consistent with osteomyelitis. Patient denies any fevers, chills, n/v or flu like symptoms. Denies any chest pain or shortness of breath. patient has been NPO since midnight pending surgery today. Dressing to LLE clean dry and intact and CAM boot in place Objective - Vital Signs Vital Signs: Vital Signs Temp Pulse Resp BP Pulse Ox 08/23/17 15:25 98.7 F 85 15 130/69 92 08/23/17 11:51 15 94 08/23/17 11:07 98.1 F 71 15 143/77 94 08/23/17 08:03 17 90 08/23/17 07:45 98.6 F 86 17 135/75 90 08/23/17 04:22 22 93 08/23/17 03:16 98.9 F 74 16 137/70 92 08/22/17 23:24 18 90 08/22/17 22:45 99.4 F 73 16 154/71 95 08/22/17 20:23 21 94 08/22/17 18:33 98.6 F 81 20 147/72 92 Intake and Output 08/23/17 08/23/17 08/23/17 07:59 15:59 23:59 Intake Total 100 / 100 560 / 560 Output Total 300 / 300 Balance -200 / -200 560 / 560 Intake: IV Fluids 100 / 100 200 / 200 Ampicillin 2 GM In 0.9 % Sodium 100 / 100 200 / 200 Chloride 100 ML @ 200 mls/hr IVPB Q4HR [facility] Rx#:[id number] Oral 360 / 360 Output: Urine 300 / 300 Other: Meal Lunch Percent of Meal Consumed 100% Stool Size Moderate Stool Consistency liquid # Bowel Movements 1 Weight 140.341 kg Blood Glucose* 190 Patient Weight 08/23/17 23:59 Weight 140.341 kg - Exam Exam: Awake, alert and oriented Wound vac currently intact. 25ml dark bloody drainage noted to vac container Pulses palpable DP/PT Foot warm to touch Cap refill <3 seconds Movement intact Sensation to moderate touch and pain No calf pain with manual compression - Lab Result Diagrams: 08/23/17 04:50 08/23/17 04:50 Labs: Abnormal lab results Hgb 12.7 g/dL (12.9-16.9) L 08/23/17 04:50 MCHC 30.9 g/dL (31.6-35.5) L 08/23/17 04:50 RDW 14.6 % (11.5-14.5) H 08/23/17 04:50 ESR >= 130 mm/hr (0-10) H 08/21/17 06:10 Potassium 3.4 mEq/L (3.5-4.5) L 08/23/17 04:50 Chloride 97 mEq/L (98-109) L 08/23/17 04:50 Carbon Dioxide 39 mEq/L (19-29) H 08/23/17 04:50 Creatinine 1.58 mg/dL (0.72-1.25) H 08/23/17 04:50 Est GFR ( Amer) 53 (> 60) L 08/23/17 04:50 Est GFR (Non-Af Amer) 44 (> 60) L 08/23/17 04:50 Glucose 183 mg/dL (70-99) H 08/23/17 04:50 POC Glucose 217 (58-89) H 08/22/17 16:37 Calculated Osmolality 301 (280-300) H 08/23/17 04:50 Total Bilirubin < 0.2 mg/dL (0.2-1.2) L 08/19/17 16:02 C-Reactive Protein 67 mg/L (Less than 5) H 08/21/17 06:10 Albumin 2.6 g/dL (3.5-5.0) L 08/19/17 16:02 Globulin 4.7 g/dL (2.4-3.5) H 08/19/17 16:02 Albumin/Globulin Ratio 0.6 (1.1-2.2) L 08/19/17 16:02 Microbiology, Last 48 Hours 08/20/17 17:18 Surgical Biopsy Culture - Preliminary Left Foot Enterococcus species Consult Discharge Plan - Plan Additional Instructions: F/up with PCP in 1-2 weeks F/up with Podiatry as scheduled F/up with ID as scheduled Referrals: Margo Giles, BEATER OPERATOR [Advanced Practice Nurse] - 12/04/17 8:40 am Beverley Baum MD [Primary Care Provider] - Prescriptions: Ampicillin Sodium 2 gm IJ Q4H 37 Days vial
== END 2017-08-23 18:30 | disposition home health service (06) | DRG 629 ==
LOC: 3BNU → SUATTDRO 14:48
PROVIDERS: ADMIT Internal Medicine; ATTEND Internal Medicine

== ENCOUNTER 2017-11-01 17:45 | Inpatient (IN) ==
[2017-11-01] MEDS ORDERED: methylPREDNISolone 125 MG/2 ML VIAL IVP ONE (18:15)
[2017-11-01] MEDS ORDERED: Ipratropium/Albuterol Neb 3 ML IH ONE (18:15)
--- NOTE | 2017-11-01 18:28 | Emergency Department Note ---
Disposition Clinical Impression: Hypoxia, NSTEMI (non-ST elevated myocardial infarction) Pneumonia Qualifiers: Pneumonia type: due to unspecified organism Laterality: right Lung location: lower lobe of lung Qualified Code(s): J18.1 - Lobar pneumonia, unspecified organism Disposition: Admitted As Inpatient Condition: Fair Referrals: Beverley Baum MD [Primary Care Provider] - Forms: ED Satisfaction Letter Time of Disposition: 20:27 SOB HPI - General Chief Complaint: ED Shortness of Breath/Dyspnea Stated Complaint: PRAFUL, flu and fever Time Seen by Provider: 11/01/17 17:58 Source: patient, family Mode of arrival: wheelchair Limitations: no limitations Nursing Notes Reviewed: Yes Vital Signs Reviewed: Yes - History of Present Illness Patient is a 67-year-old male with past medical history of COPD, CHF, trach placement due to hypercapnia and ventilator requirement about 2 years ago. Of note, patient also was on ventilator last year due to influenza. He presents today due to shortness of breath. He has been having this symptom for the past 3 days. He was diagnosed with influenza at urgent care on Saturday, approximately 3-4 days ago. He is currently on pro-air, prednisone at home. He does not require any oxygen daily at home. However, his saturation today was 70-80% according to home health nurse. He is in place on 2 L nasal cannula oxygen. He denies any other chest pain, fevers, diarrhea, abdominal pain, nausea, vomiting. He is currently on Tamiflu for influenza diagnosis. - Related Data Home Medications Medication Instructions Recorded Confirmed Albuterol Sulfate [Albuterol 2 puff IH Q4HR 11/16/15 08/19/17 Inhaler] Allopurinol [Zyloprim 300 MG] 300 mg PO DAILY 11/16/15 08/19/17 Levothyroxine [Synthroid] 75 mcg PO 0630 11/16/15 08/19/17 Potassium Chloride [K-Tab ER] 3 tab PO BID 11/16/15 08/19/17 Spironolactone [Aldactone] 2 tab PO BID 11/16/15 08/19/17 Insulin Aspart Prot/Insuln Asp 50 unit SQ BID 11/17/15 08/19/17 [Novolog Mix 70-30 Flexpen Syrn] Collagenase Oint [Santyl] 1 appl TP DAILY 08/19/17 08/19/17 Furosemide [Lasix] 80 mg PO TID 08/19/17 08/19/17 Omeprazole [PriLOSEC] 40 mg PO DAILY 08/19/17 08/19/17 Previous Rx's Medication Instructions Recorded Ampicillin Sodium 2 gm IJ Q4H 37 Days vial 08/23/17 OxyCODONE/APAP 10/325 [Percocet 1 tab PO Q6H PRN #20 08/23/17 10/325 MG] Amoxicillin/Clavulanate [Augmentin] 875 mg PO BIDWM #20 tablet 10/30/17 Oseltamivir [Tamiflu] 75 mg PO BID #10 capsule 10/30/17 methylPREDNISolone [Medrol] 4 mg PO DAILY 6 Days #21 tablet 10/30/17 Allergies Allergy/AdvReac Type Severity Reaction Status Date / Time No Known Allergies Allergy Verified 08/19/17 14:08 All systems ED: reviewed and negative except as stated. Constitutional: Denies: fever Cardiovascular: Reports: dyspnea on exertion. Denies: chest pain, palpitations Respiratory: Reports: dyspnea Gastrointestinal: Denies: abdominal pain, nausea, vomiting, diarrhea Genitourinary: Denies: urgency, dysuria Neurological: Denies: headache, weakness, numbness Past Medical History - Past Medical History Attestation: Yes The following information was validated with the patient. Source: patient Medical history: Reports: CHF, COPD, diabetes, thyroid disease, other Surgical history: Reports: orthopedic, other Psychiatric history: Reports: no psych history - Social History Smoking Status: Unknown if ever smoked Smokeless Tobacco Status: No Alcohol use: Reports: none Drug use: Reports: none Physical Exam - General Limitations: no limitations General appearance: alert - Head Head exam: atraumatic, normocephalic, normal inspection - Eye Eye exam: Present: normal appearance, PERRL, EOMI - ENT ENT exam: normal exam, normal oropharynx, mucous membranes moist - Neck Neck exam: Present: full ROM, trachea midline, other (Trach in place, no excessive secretions at this time.) - Chest Chest inspection: Present: normal inspection, symmetric chest wall rise - Respiratory Respiratory exam: Present: respiratory distress (Mild increase in work of breathing), wheezes ([id number] wheezing throughout) - Cardiovascular Cardiovascular exam: Present: regular rate, normal rhythm, normal heart sounds - Abdominal Exam Abdominal exam: Present: soft, Non-Tender. Absent: tenderness, distention, guarding, rebound, rigidity - Extremities Exam Extremities exam: Present: full ROM, pedal edema (Mild pedal edema of bilateral lower extremities.). Absent: tenderness, joint swelling - Neurological Exam Neurological exam: Present: alert, oriented X3 - Psychiatric Psychiatric exam: Present: normal affect, normal mood - Skin Skin exam: Present: warm, dry, intact, normal color Course Course Narrative: Patient currently 93% on 2 L nasal cannula oxygen. Mildly hypertensive. Otherwise, the rest of the vitals within normal limits. Physical exam shows [id number] wheezing throughout, mild respiratory distress. The rest of the physical exam was benign. We will give the patient DuoNeb, Solu-Medrol, obtain basic blood work and chest x-ray. Patient will likely be admitted due to increased oxygen requirement. 20:24 troponin came back elevated at 0.4. No acute ST changes on EKG. Patient was given aspirin 325 mg and was started on heparin drip. He currently does not have any chest pain but does complain of some shortness of breath. Chest x- ray shows possible atelectasis versus early pneumonia. Due to wheezing and rhonchi heard on lung exam, worsening shortness of breath in the setting of COPD , will start patient on azithromycin. Patient was also given steroids and breathing treatments. He does have an improvement in aeration. However, he does still required 2 L nasal cannula oxygen to keep his saturation above 88%. Due to the hypoxia, possible pneumonia, NSTEMI, will admit the patient for further care. Vital Signs Temperature 97.5 F L 11/01/17 17:49 Pulse Rate 86 11/01/17 17:49 Respiratory Rate 18 11/01/17 17:49 Blood Pressure 168/76 11/01/17 17:49 O2 Sat by Pulse Oximetry 93 11/01/17 17:49 Temperature 97.5 F L 11/01/17 17:49 Pulse Rate 86 11/01/17 17:49 Respiratory Rate 18 11/01/17 18:28 Blood Pressure 168/76 11/01/17 17:49 O2 Sat by Pulse Oximetry 96 11/01/17 18:28 Oxygen Delivery Oxygen Delivery Nasal Cannula Shortness of Breath/Dyspnea - [facility] Narrative Medical decision making narrative: troponin came back elevated at 0.4. No acute ST changes on EKG. Patient was given aspirin 325 mg and was started on heparin drip. He currently does not have any chest pain but does complain of some shortness of breath. Chest x-ray shows possible atelectasis versus early pneumonia. Due to wheezing and rhonchi heard on lung exam, worsening shortness of breath in the setting of COPD, will start patient on azithromycin. Patient was also given steroids and breathing treatments. He does have an improvement in aeration. However, he does still required 2 L nasal cannula oxygen to keep his saturation above 88%. Due to the hypoxia, possible pneumonia, NSTEMI, will admit the patient for further care. 20:42 cardiology consulted as well, spoke with Dr. Pryor about NSTEMI, no other recs besides heparin at this time. - Medical Records Medical records reviewed: Yes I reviewed the patient's medical records. - Lab Data Lab results reviewed: Yes I reviewed the patient's lab results. Result diagrams: 11/01/17 18:46 11/01/17 18:46 Lab Results 11/01/17 11/01/17 11/01/17 Range/Units 18:46 18:46 18:46 WBC 8.9 (4.3-11.1) K/mcL RBC 5.21 (4.19-5.50) M/mcL Hgb 14.6 (12.9-16.9) g/dL Hct 48.3 (37.5-50.1) % MCV 92.7 (83.0-100.0) fL MCH 28.0 (28.0-33.3) pg MCHC 30.2 L (31.6-35.5) g/dL RDW 15.7 H (11.5-14.5) % Plt Count 236 (140-400) K/mcL MPV 9.6 (9.4-12.4) fL Immature Gran % 0.3 (0-4) % Seg Neutrophils % 85.9 % Lymphocytes % 6.9 % Monocytes % 6.6 % Eosinophils % 0.0 % Basophils % 0.3 % Neutrophils # 7.6 (1.6-8.9) K/mcL Lymphocytes # 0.6 (0.6-4.6) K/mcL Monocytes # 0.6 (0.0-1.3) K/mcL Eosinophils # 0.0 (0.0-0.6) K/mcL Basophils # 0.0 (0.0-0.2) K/mcL Sodium 137 (136-145) mEq/L Potassium 5.0 (3.5-5.1) mEq/L Chloride 96 L (98-107) mEq/L Carbon Dioxide 36 H (23-29) mEq/L BUN 42 H (8-23) mg/dL Creatinine 1.67 H (0.70-1.30) mg/dL Est GFR ( Amer) 50 L (> 60) Est GFR (Non-Af Amer) 41 L (> 60) BUN/Creatinine Ratio 25 (6-26) Glucose 157 H (70-105) mg/dL Calculated Osmolality 298 (280-300) Lactic Acid 1.1 (0.5-2.2) mmol/L Calcium 9.2 (8.6-10.3) mg/dL Troponin I (< 0.04) ng/mL B-Natriuretic Peptide (Less than 100) pg/mL 11/01/17 11/01/17 Range/Units 18:46 18:46 WBC (4.3-11.1) K/mcL RBC (4.19-5.50) M/mcL Hgb (12.9-16.9) g/dL Hct (37.5-50.1) % MCV (83.0-100.0) fL MCH (28.0-33.3) pg MCHC (31.6-35.5) g/dL RDW (11.5-14.5) % Plt Count (140-400) K/mcL MPV (9.4-12.4) fL Immature Gran % (0-4) % Seg Neutrophils % % Lymphocytes % % Monocytes % % Eosinophils % % Basophils % % Neutrophils # (1.6-8.9) K/mcL Lymphocytes # (0.6-4.6) K/mcL Monocytes # (0.0-1.3) K/mcL Eosinophils # (0.0-0.6) K/mcL Basophils # (0.0-0.2) K/mcL Sodium (136-145) mEq/L Potassium (3.5-5.1) mEq/L Chloride (98-107) mEq/L Carbon Dioxide (23-29) mEq/L BUN (8-23) mg/dL Creatinine (0.70-1.30) mg/dL Est GFR ( Amer) (> 60) Est GFR (Non-Af Amer) (> 60) BUN/Creatinine Ratio (6-26) Glucose (70-105) mg/dL Calculated Osmolality (280-300) Lactic Acid (0.5-2.2) mmol/L Calcium (8.6-10.3) mg/dL Troponin I 0.40 H* (< 0.04) ng/mL B-Natriuretic Peptide 121 H (Less than 100) pg/mL - Radiology Data Radiology results reviewed: Yes I reviewed the patient's radiology results. - EKG Data EKG attestation: Yes I reviewed and interpreted this EKG. EKG results narrative: 11/01/2017 18:14. Normal sinus rhythm. Rate 82. Normal axis. FL 180. QRS 77. QTC 378. No acute ST elevation or depression. Yessenia - Yessenia Situation: Demographics, MOA Background: Presenting Complaint, Relevant PMH, Meds, & Allergies Assessment: Vital Signs, Course and respsone to treatment, Exam Concerns, Patient/Family Expectation, Pertinant Lab Results, Outstanding Labs Recommendation: Barrier(s) to disposition, Recommendation based on pending studies, treatments, or consults Yessenia Report Given to: Dr. Teja Casas Repor Time: 20:44
--- NOTE | 2017-11-01 18:38 | Emergency Department Note ---
START Narrative - START START: I examined this patient and my medical decision-making was reviewed with the Resident Physician, Calvin Estevez. I agree with the documented findings, disposition and treatment plan as described except to the extent set forth below. I have personally performed a face to face evaluation on this patient. I have reviewed and agree with the care plan. Briefly: Obese 67-year-old male presents with family cough and shortness of breath. Patient is bad COPD and obesity hypoventilation syndrome he had a trach placed in the distant past. Patient was diagnosed with flu on Saturday and was on Diflucan but he still has some cough and shortness of breath. Patient will get to treatment screening labs and chest x-ray. Disposition pending. Patient will also get steroids.
[2017-11-01 18:53] LABS: Basophils % 0.3 %; Hematocrit 48.3 % (37.5-50.1); Hemoglobin 14.6 g/dL (12.9-16.9); Immature Granulocytes % 0.3 % (0-4); Lymphocytes # 0.6 K/mcL (0.6-4.6); Lymphocytes % 6.9 %; Mean Corpuscular HGB Conc 30.2 g/dL (31.6-35.5); Mean Corpuscular Volume 92.7 fL (83.0-100.0); Mean Platelet Volume 9.6 fL (9.4-12.4); Monocytes # 0.6 K/mcL (0.0-1.3); Monocytes % 6.6 %; Neutrophils # 7.6 K/mcL (1.6-8.9); Platelet Count 236 K/mcL (140-400); Red Blood Count 5.21 M/mcL (4.19-5.50); Red Cell Distribution Width 15.7 % (11.5-14.5); Segmented Neutrophils % 85.9 %
[2017-11-01 19:19] LABS: Calcium 9.2 mg/dL (8.6-10.3)
[2017-11-01] MEDS ORDERED: Aspirin 325 MG TABLET PO ONE (19:34)
[2017-11-01] MEDS ORDERED: Azithromycin 500 MG in D5% in Water 250 ML IVPB ONE (20:06)
[2017-11-01] MEDS ORDERED: *HR* Heparin 5,000 UNIT/ML VIAL IVP PRN (20:17)
[2017-11-01] MEDS ORDERED: *HR* Heparin 5,000 UNIT/ML VIAL IVP ONE (20:17)
[2017-11-01] MEDS ORDERED: Acetaminophen 325 MG TABLET PO PRN (21:02)
[2017-11-01] MEDS ORDERED: Nitroglycerin 0.4 MG TAB.SUBL SL PRN (21:02)
[2017-11-01] MEDS ORDERED: Cefepime HCl 1,000 MG in D5% in Water (Mini-Bag+) 100 ML IVPB SCH (21:03)
[2017-11-01 21:04] LABS: Prothrombin Time 10.8 Seconds (9.4-12.1)
[2017-11-01 21:07] LABS: Activated Partial Thrombo Time 29.4 Seconds (26.0-36.0)
[2017-11-01] MEDS ORDERED: Ondansetron 4 MG/2 ML VIAL IVP PRN (21:07)
[2017-11-01] MEDS ORDERED: *HR* OxyCODONE Immed Rel 5 MG TABLET PO PRN (21:07)
[2017-11-01] MEDS ORDERED: Naloxone 0.4 MG/ML INJ IVP PRN (21:07)
[2017-11-01 21:11] LABS: Hematocrit 48.1 % (37.5-50.1); Hemoglobin 14.5 g/dL (12.9-16.9); Mean Corpuscular HGB Conc 30.1 g/dL (31.6-35.5); Mean Corpuscular Hemoglobin 27.9 pg (28.0-33.3); Mean Corpuscular Volume 92.5 fL (83.0-100.0); Mean Platelet Volume 9.8 fL (9.4-12.4); Platelet Count 217 K/mcL (140-400); Red Cell Distribution Width 15.9 % (11.5-14.5)
--- NOTE | 2017-11-01 21:12 | Internal Med History&Physical ---
Date of Encounter: 11/01/17 Time of Encounter: 21:10 Assessment and Plan (1) Acute respiratory failure with hypoxia Current visit: Yes Status: Acute Acute hypoxic respiratory failure secondary to acute COPD exacerbation due to healthcare associated pneumonia present upon admission (the patient was hospitalized in August 2017) and influenza Start cefepime and Levaquin, continue Tamiflu Continue Solu-Medrol, DuoNeb nebs, oxygen therapy and tracheostomy care Sputum culture No IV fluids due to volume overload Omeprazole for GI prophylaxis and heparin drip for DVT prophylaxis. The patient will be admitted as inpatient, expected to stay [place] midnights. Full code. Time spent on this admission 40 minutes (2) NSTEMI (non-ST elevated myocardial infarction) Current visit: Yes Status: Acute Possible non-STEMI Continue aspirin, Lipitor, start metoprolol, nitroglycerin as needed, pain control Cardiology consult Heparin drip Follow troponins, check an echocardiogram in the morning (3) Tracheostomy care Current visit: Yes Status: Acute (4) Achilles tendon rupture Current visit: No Status: Acute Qualifiers: Encounter type: initial encounter Laterality: left Qualified Code(s): S86.012A - Strain of left Achilles tendon, initial encounter (5) Acute osteomyelitis of left calcaneus Current visit: No Status: Acute History of osteomyelitis, completed treatment with amoxicillin (6) Influenza Current visit: No Status: Acute Continue Tamiflu, was started on October 30 (7) CKD (chronic kidney disease) Current visit: No Status: Chronic Qualifiers: Chronic kidney disease stage: stage 3 (moderate) Qualified Code(s): N18.3 - Chronic kidney disease, stage 3 (moderate) (8) COPD (chronic obstructive pulmonary disease) Current visit: No Status: Chronic Acute exacerbation Qualifiers: COPD type: unspecified COPD Qualified Code(s): J44.9 - Chronic obstructive pulmonary disease, unspecified (9) Diastolic heart failure Current visit: No Status: Chronic Mild acute diastolic CHF Continue Lasix , strict I's and O's and daily weight Qualifiers: Heart failure chronicity: chronic Qualified Code(s): I50.32 - Chronic diastolic (congestive) heart failure (10) Hypothyroidism Current visit: No Status: Chronic Qualifiers: Hypothyroidism type: unspecified Qualified Code(s): E03.9 - Hypothyroidism , unspecified (11) Obesity hypoventilation syndrome Current visit: No Status: Chronic Internal Medicine - H&P: HPI Chief complaint: Shortness of breath Admitted From: Emergency Dept History of present illness: Mr. Zaamn is a 67 year old male with a past medical history of obesity hypoventilation syndrome, COPD with tracheostomy not oxygen dependent, chronic kidney disease stage III, diabetes type 2 insulin-dependent, diastolic CHF who was diagnosed with influenza 4 days ago and was started on Tamiflu on generally 2017, comes complaining of fevers at home, difficulty breathing, his saturation of oxygen drop down to 70%, very congested. Chest x-ray showed a right basilar opacity compatible with early pneumonia. Creatinine is 1.67 and his troponin is 0.4. Patient has been complaining of chest pain with cough/ nonspecific. Patient was started on aspirin, heparin drip, Solu-Medrol and azithromycin. Blood pressure is 168/76. Feels weak and appears very congested. Past Med Surg Social Fam HX - Past Medical History Medical history: CHF (Diastolic CHF last echo August 2017 shows an ejection fraction of 60%), COPD (Not oxygen dependent, has tracheostomy due to hypoventilation obesity syndrome), diabetes (Insulin-dependent), GERD, hyperlipidemia, hypertension, thyroid disease (Hypothyroidism), other (Chronic kidney disease stage III, influenza, gout, hypothyroidism, left calcaneus osteomyelitis infected with enterococcus, GERD) Psychiatric history: no psych history - Past Surgical History Surgical History: orthopedic, other (Achilles tendon rupture, tracheostomy) - Social History Smoking Status: Former smoker Packs per day: Quit smoking in 1999, used to smoke 1 pack per day Smokeless Tobacco Status: No Alcohol use: none Drug use: none - Family History Mother Living Status: Hx Family Cancer: Yes (Leukemia) Hx Family Endocrine Disorder: Yes (DM) Father Living Status: Hx Family Cancer: Yes (Colon) - Additional Family History Additional family history: Mother with leukemia and diabetes Internal Medicine - H&P: Meds Albuterol Sulfate [Albuterol Inhaler] 2 puff IH Q4HR 11/16/15 [History] Allopurinol [Zyloprim 300 MG] 300 mg PO DAILY 11/16/15 [History] Levothyroxine [Synthroid] 75 mcg PO 0630 11/16/15 [History] Potassium Chloride [K-Tab ER] 3 tab PO BID 11/16/15 [History] Spironolactone [Aldactone] 2 tab PO BID 11/16/15 [History] Insulin Aspart Prot/Insuln Asp [Novolog Mix 70-30 Flexpen Syrn] 50 unit SQ BID 11/17/15 [History] Collagenase Oint [Santyl] 1 appl TP DAILY 08/19/17 [History] Furosemide [Lasix] 80 mg PO TID 08/19/17 [History] Omeprazole [PriLOSEC] 40 mg PO DAILY 08/19/17 [History] Ampicillin Sodium 2 gm IJ Q4H 37 Days vial 08/23/17 [Rx] OxyCODONE/APAP 10/325 [Percocet 10/325 MG] 1 tab PO Q6H PRN #20 08/23/17 [Rx] Amoxicillin/Clavulanate [Augmentin] 875 mg PO BIDWM #20 tablet 10/30/17 [Rx] Oseltamivir [Tamiflu] 75 mg PO BID #10 capsule 10/30/17 [Rx] methylPREDNISolone [Medrol] 4 mg PO DAILY 6 Days #21 tablet 10/30/17 [Rx] 3 Allergy/AdvReac Type Severity Reaction Status Date / Time No Known Allergies Allergy Verified 08/19/17 14:08 All Systems PM: A 10-system review of systems was performed and is negative for pertinent findings except as documented above in the HPI. Review of systems: Persistent pleuritic chest pain, shortness of breath, other systems out of the 10 reviewed were negative - Constitutional Vitals: Temp Pulse Resp BP Pulse Ox 97.5 F L 86 18 168/76 96 11/01/17 17:49 11/01/17 17:49 11/01/17 18:28 11/01/17 17:49 11/01/17 18:28 General appearance: Present: A&O X 3 - Head Head exam: Present: atraumatic, normocephalic - Eye Eye exam: Present: PERRL, conjuntiva pink, sclera anicteric Pupils: Present: PERRL - Neck Neck exam general surgery: Present: supple, trachea midline. Absent: lymphadenopathy Additional comments: Tracheostomy - Respiratory Respiratory exam: Present: CTAB, rales (Diffuse wheezing and crackles), wheezes. Absent: accessory muscle use, rhonchi - Cardiovascular Cardiovascular exam: Present: RRR, +S1, +S2. Absent: diastolic murmur, gallop, rubs, systolic murmur - GI/Abdominal GI/Abdominal exam: Present: normal bowel sounds, soft, no peritoneal signs. Absent: distended, tenderness - Extremities Exam Extremities exam: Present: pedal edema (+1 pitting edema in both lower extremities, left lower third of the cho is deformed from prior osteomyelitis in childhood), warm, radial pulses palpable and symmetrical. Absent: calf tenderness, cyanotic - Neurological Exam Neurological exam: Present: CN II-XII intact, oriented X3, no focal deficits. Absent: pronater drift, facial droop, speech deficit - Skin Skin exam: Present: dry, intact Internal Med - H&P Results - Labs CBC & Chem 7: 11/01/17 18:46 11/01/17 18:46 Labs: Short CBC 11/01/17 Range/Units 18:46 WBC 8.9 (4.3-11.1) K/mcL Hgb 14.6 (12.9-16.9) g/dL Hct 48.3 (37.5-50.1) % Plt Count 236 (140-400) K/mcL Neutrophils # 7.6 (1.6-8.9) K/mcL BMP 11/01/17 18:46 Sodium 137 Potassium 5.0 Chloride 96 L Carbon Dioxide 36 H BUN 42 H Creatinine 1.67 H Glucose 157 H Calcium 9.2 Cardiac Enzymes 11/01/17 Range/Units 18:46 Troponin I 0.40 H* (< 0.04) ng/mL - Impressions ITS Impressions Chest X-Ray 11/01/17 18:18 IMPRESSION: Mild right basilar opacity could be due to atelectasis or early pneumonia. D/ / Hussein Friend MD / Hussein Friend MD Interpreting Provider: Hussein Friend MD
[2017-11-01] MEDS ORDERED: D5% in Water 1,000 ML IVC PRN (21:20)
[2017-11-01] MEDS ORDERED: Dextrose Gel 15 GM/37.5 ML TUBE PO PRN ×2 (21:20)
[2017-11-01] MEDS ORDERED: *HR* Dextrose 50 % in Water (Syg) 50 ML SYRINGE IVP PRN (21:20)
[2017-11-01] MEDS: Heparin 25,000 UNIT/500 ML D5W 25,000 UNIT/500 ML BAG IVC SCH (21:39)
[2017-11-01] MEDS: Ipratropium/Albuterol Neb 3 ML IH SCH (21:48)
[2017-11-01] MEDS: Insulin LISPRO 300 UNITS/3 ML VIAL SQ SCH (22:46)
[2017-11-02] MEDS: Cefepime HCl 1,000 MG in Water for inj. (sterile) 10 ML IVP SCH ×2 (00:03→12:31)
[2017-11-02] MEDS: MethylPREDNISolone 40 MG/ML VIAL IVP SCH ×3 (03:09→18:27)
[2017-11-02] MEDS: Ipratropium/Albuterol Neb 3 ML IH SCH ×4 (03:29→22:00)
[2017-11-02 04:19] LABS: Calcium 8.9 mg/dL (8.6-10.3); Chol/HDL Ratio 7.2 (0-4.9)
[2017-11-02] MEDS: *HR* Heparin 5,000 UNIT/ML VIAL IVP PRN ×3 (04:33→20:33)
[2017-11-02] MEDS ORDERED: Insulin NPH/REG 70/30 100 UNIT/ML (x5UNIT) SQ SCH (07:30)
[2017-11-02] MEDS ORDERED: Spironolactone 25 MG TABLET PO SCH (09:00)
[2017-11-02] MEDS ORDERED: NON-FORMULARY MEDICATION 1 EACH EACH (Insulin Aspart Prot/Insuln Asp [Novolog Mix 70-30 Fl SQ SCH (09:00)
[2017-11-02] MEDS ORDERED: Aspirin Enteric Coated 325 MG Tablet PO SCH (09:00)
[2017-11-02] MEDS: Furosemide 40 MG TABLET PO SCH ×3 (09:40→18:27)
[2017-11-02] MEDS: Insulin LISPRO 300 UNITS/3 ML VIAL SQ SCH ×3 (09:40→18:28)
[2017-11-02] MEDS: INSULIN GLARGINE SQ SCH (09:41)
--- NOTE | 2017-11-02 09:56 | Electrocardiograph Report ---
[place] [id number] Test Date: 2017-11-01 Pat Name: Star Zaman Department: 104 Room: 2N3 Gender: M Therapist Speech: NANETTE : 1950 Requested By: Calvin Estevez Order Number: [id number] Reading MD: Jolie Colon Measurements Intervals [place] Rate: 82 P: 52 MT: 180 QRS: 7 QRSD: 77 T: 62 QT: 339 QTc: 378 Interpretive Statements SINUS RHYTHM WITH SINUS ARRHYTHMIA Electronically Signed On 11-02-2017 9:55:02 EST by Jolie Colon
--- NOTE | 2017-11-02 10:04 | Internal Med Progress Note ---
Date of Encounter: 11/02/17 Time of Encounter: 09:58 - Assessment and plan (1) Acute respiratory failure Current Visit: Yes Status: Acute Assessment and plan: Pt admitted with acute hypoxia. He now is hypercapnic. He has been placed on bipap and seems to slowly be improving. He has a trach that has a plug in it right now. May need to remove plug later when he is more awake. Current trach cannot be used with ventilator if needed and would have to be changed. Qualifiers: Respiratory failure complication: hypoxia and hypercapnia Qualified Code(s) : J96.01 - Acute respiratory failure with hypoxia; J96.02 - Acute respiratory failure with hypercapnia; J96.02 - Acute respiratory failure with hypercapnia; J96.02 - Acute respiratory failure with hypercapnia (2) Hyperkalemia Current Visit: Yes Status: Acute Assessment and plan: Potassium elevated this AM. Has been on PO potassium as outpatient as well as Aldactone. EKG - minimally elevated T waves. Given calcium gluconate. Kayexalate ordered but too sleepy to take it right now. May improve as respiratory acidosis improves. Will recheck lab this afternoon. (3) Pneumonia Current Visit: Yes Status: Suspected Assessment and plan: Has infiltrate in R lung. Recent hospitalization in August. Currently on Cefepime and Levaquin. Holding on Vancomycin at this time. Currently on Solumedrol and aerosols as well. Qualifiers: Pneumonia type: due to other aerobic Gram-negative bacteria Laterality: right Lung location: lower lobe of lung Qualified Code(s): J15.6 - Pneumonia due to other Gram-negative bacteria (4) NSTEMI (non-ST elevated myocardial infarction) Current Visit: Yes Status: Acute Assessment and plan: Asymptomatic at this time. On heparin drip. Cardiology input appreciated. (5) Influenza Current Visit: No Status: Acute Assessment and plan: Completing Tamiflu. Droplet isolation. (6) Tracheostomy care Current Visit: Yes Status: Chronic Assessment and plan: Chronic issue. (7) Diabetes mellitus Current Visit: No Status: Chronic Assessment and plan: Currently on accuchecks and sliding scale insulin. Avoiding nephrotoxins as able. 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 Qualifiers: Heart failure chronicity: chronic Qualified Code(s): I50.32 - Chronic diastolic (congestive) heart failure (9) Hypothyroidism Current Visit: No Status: Chronic Assessment and plan: Continue medication Qualifiers: Hypothyroidism type: acquired Qualified Code(s): E03.9 - Hypothyroidism, unspecified (10) COPD (chronic obstructive pulmonary disease) Current Visit: No Status: Chronic Assessment and plan: On oxygen, bipap, steroids and aerosols. Qualifiers: COPD type: unspecified COPD Qualified Code(s): J44.9 - Chronic obstructive pulmonary disease, unspecified (11) Obesity hypoventilation syndrome Current Visit: No Status: Chronic Assessment and plan: Chronic trach patient. - Subjective Interval history: Mr Zaman is currently admitted for acute respiratory failure related to pneumonia and influenza. He remains high risk due to potential for worsening clinical and respiratory status. Mr Zaman is very somnolent this AM. He opens his eyes but does not respond well. No fever at this time. Tolerating abx. Oxygen levels are OK. Potassium is high this AM and meds adjusted and recheck ordered. - Constitutional Vitals: Temp Pulse Resp BP Pulse Ox 97.5 F L 89 16 185/85 92 11/02/17 07:21 11/02/17 07:21 11/02/17 07:21 11/02/17 07:21 11/02/17 07:21 Exam: Alert. Does not answer questions. - Head Head exam: Present: atraumatic, normocephalic - Eye Eye exam: Present: EOMI, conjuntiva pink - ENT ENT exam: Present: mucous membranes dry - Respiratory Respiratory exam: Present: decreased breath sounds, wheezes - Cardiovascular Cardiovascular exam: Present: RRR. Absent: tachycardia - GI/Abdominal GI/Abdominal exam: Present: soft. Absent: mass, tenderness - Extremities Exam Extremities exam: Present: warm. Absent: tenderness - Neurological Exam Neurological exam: Present: alert - Skin Skin exam: Present: warm. Absent: rash Internal Medicine: Result - Labs CBC & Chem 7: 11/01/17 20:42 11/02/17 10:04 Labs: BMP 11/02/17 03:44 Sodium 136 Potassium 6.0 H Chloride 98 Carbon Dioxide 32 H BUN 48 H Creatinine 1.78 H Glucose 229 H Calcium 8.9 Cardiac Enzymes 11/01/17 11/02/17 Range/Units 22:45 03:44 Troponin I 0.28 H* 0.18 H* (< 0.04) ng/mL - ABG Interpretation ABG results: PT/INR, D-dimer PT 10.8 Seconds (9.4-12.1) 11/01/17 20:42 - EKG Interpretation EKG Interpreted by Myself: Yes EKG shows normal: sinus rhythm, ST-T waves (Minimal peaking of T waves) Rate: normal Consult Discharge Plan - Plan Referrals: Beverley Baum MD [Primary Care Provider] -
[2017-11-02 10:23] LABS: ABG Base Excess 5 mEq/L (-2 to 3); ABG HCO3 39 mEq/L (21-27); ABG Oxygen Saturation 88 % (95-98); ABG PCO2 107 mmHg (35-45); ABG PH 7.17 pH Units (7.32-7.45); ABG PO2 72 mmHg (85-104); ABG TCO2 42 mEq/L (20-26)
[2017-11-02 10:43] LABS: Calcium 8.9 mg/dL (8.6-10.3); Phosphorous 6.7 mg/dL (2.7-4.5); Potassium 5.6 mEq/L (3.5-5.1)
--- NOTE | 2017-11-02 11:30 | Cardiology Consult Note ---
Date of Encounter: 11/02/17 Time of Encounter: 10:00 Assessment and Plan (1) Elevated troponin Current Visit: Yes Status: Acute Troponin 0.4, 0.28, 0.18 in the setting of respiratory failure; likely secondary to demand ischemia. Patient is chest pain free. No significant ECG changes noted. Flu positive, CXR concerning for PNA. Continue asa and statin. Consider addition of betablocker once respiratory status improves. Check TTE to eval structure and function. (EF 55-60% per TTE 2016). Can consider ischemic evaluation in the outpatient setting once respiratory issues resolved. (2) Pneumonia Current Visit: Yes Status: Acute mgmt per primary service. Qualifiers: Pneumonia type: due to unspecified organism Laterality: right Lung location: lower lobe of lung Qualified Code(s): J18.1 - Lobar pneumonia, unspecified organism Discussion w patient/family: The assessment and plan as outlined above was discussed with the patient and/or family members who expressed understanding and agreement. All questions were answered. Thank you for involving us in the care of your patient. Please call with any questions. The patient will be discussed and reviewed with Dr. Pryor; changes to be made accordingly. History of Present Illness Consult date: 11/02/17 Requesting physician: Lucas Davila Consult reason: Elevated troponin Chief complaint: Shortness of breath History of present illness: Mr. Zaman is a 67 year old male with PMHx significant for COPD, DMII, osteomyelitis (active, left heel), CKD, dCHF, and trach s/p hypercapnic respiratory failure (2 years ago) who presented to the ED with worsening shortness of breath over the past several days. He was found to be flu positive on 10/30 and was started on Tamiflu. Symptoms continued to worsen which prompted ED evaluation. Upon exam this morning he is drowsy and on Bipap. Cardiology consulted for elevated troponin. No significant ECG abnormalities noted. Prior CV testing: TTE 08/19/17: EF 55-60%, normal wall motion. Past Med Surg Social Fam HX - Past Medical History Attestation: Yes The following information was validated with the patient. Source: patient, old records reviewed, nursing notes reviewed Medical history: arthritis, CHF (diastolic), COPD, diabetes, GERD, hyperlipidemia, hypertension, thyroid disease, other Psychiatric history: no psych history - Past Surgical History Surgical History: orthopedic, other - Social History Smoking Status: Former smoker Packs per day: Quit smoking in 1999, used to smoke 1 pack per day Smokeless Tobacco Status: No Alcohol use: none Drug use: none - Family History Mother Living Status: Hx Family Cancer: Yes (Leukemia) Hx Family Endocrine Disorder: Yes (DM) Father Living Status: Hx Family Cancer: Yes (Colon) Medications and Allergies Albuterol Sulfate [Albuterol Inhaler] 2 puff IH Q4HR PRN 11/16/15 [History] Allopurinol [Zyloprim 300 MG] 300 mg PO DAILY 11/16/15 [History] Levothyroxine [Synthroid] 75 mcg PO 0630 11/16/15 [History] Potassium Chloride [K-Tab ER] 20 meq PO 6XD 11/16/15 [History] Spironolactone [Aldactone] 50 mg PO BID 11/16/15 [History] Furosemide [Lasix] 120 mg PO BID 08/19/17 [History] Omeprazole [PriLOSEC] 40 mg PO DAILY 08/19/17 [History] OxyCODONE/APAP 10/325 [Percocet 10/325 MG] 1 tab PO Q6H PRN #20 08/23/17 [Rx] Amoxicillin/Clavulanate [Augmentin] 875 mg PO BIDWM #20 tablet 10/30/17 [Rx] Oseltamivir [Tamiflu] 75 mg PO BID #10 capsule 10/30/17 [Rx] Albuterol Neb [Proventil Neb] 2.5 mg IH Q6H PRN 11/01/17 [History] Budesonide/Formoterol 160/4.5 [Symbicort 160/4.5] 2 puff IH BIDR 11/01/17 [ History] Citalopram Hydrobromide [Celexa] 40 mg PO DAILY 11/01/17 [History] Insulin Glargine,Hum.rec.anlog [Tousampsono Solostar] 100 units SQ BID 11/01/17 [ History] Magnesium Oxide [Mag-Ox] 400 mg PO DAILY 11/01/17 [History] Zolpidem [Ambien] 5 mg PO HS 11/01/17 [History] methylPREDNISolone [Medrol] 4 mg PO PER PKG DI 11/01/17 [History] 3 Allergy/AdvReac Type Severity Reaction Status Date / Time No Known Allergies Allergy Verified 08/19/17 14:08 All Systems Review: A 10-system review of systems was performed and is negative for pertinent findings except as documented above in the HPI. - Cardiovascular Cardiovascular: as per HPI Physical Examination Vital Signs, Last 4 Hours Resp Pulse Ox 11/02/17 10:25 10 96 11/02/17 10:04 92 General: Other (drowsy, on Bipap) Cardiac: Reg Rate and Rhythm, Normal S1 and S2 Lungs: Other (decreased) Neuro: Alert and responsive (drowsy) Abdomen: Soft (large, obese) Skin: No rashes noted on visualized skin Musculoskeletal: No Chest Wall Tenderness Extremities: Other (+1-2 BLE edema. ) Results 11/01/17 20:42 11/02/17 10:04 Lab Results 11/01/17 11/02/17 11/02/17 22:45 03:44 03:44 APTT Sodium 136 Potassium 6.0 H Chloride 98 Carbon Dioxide 32 H BUN 48 H Creatinine 1.78 H Glucose 229 H Calcium 8.9 Troponin I 0.28 H* 0.18 H* 11/02/17 11/02/17 11/02/17 03:44 10:04 10:04 APTT 42.2 H 53.8 H Sodium Potassium Chloride Carbon Dioxide BUN Creatinine Glucose Calcium Troponin I 0.12 H* 11/02/17 10:04 APTT Sodium 137 Potassium 5.6 H Chloride 97 L Carbon Dioxide 36 H BUN 52 H Creatinine 1.78 H Glucose 226 H Calcium 8.9 Troponin I Active Medications Acetaminophen (Tylenol) 650 mg PO Q4HR PRN PRN Reason: fever and mild pain Stop: 05/03/18 21:03 Albuterol/Ipratropium (Duoneb) 3 ml IH [id number] CARISA PRN Reason: Protocol Stop: 05/03/18 22:01 Last Admin: 11/02/17 10:23 Dose: 3 ml Allopurinol (Zyloprim) 300 mg PO DAILY [facility] Stop: 05/04/18 09:01 Last Admin: 11/02/17 09:41 Dose: 300 mg Aspirin (Aspirin Ec) 325 mg PO DAILY [facility] Stop: 05/04/18 09:01 Last Admin: 11/02/17 09:40 Dose: 325 mg Atorvastatin Calcium (Lipitor) 40 mg PO HS [facility] Stop: 05/03/18 21:16 Last Admin: 11/02/17 00:03 Dose: 40 mg Dextrose/Water (Dextrose 50% (Syg)) 25 ml IVP AD PRN PRN Reason: Hypoglycemia Stop: 05/03/18 21:21 Furosemide (Lasix) 80 mg PO TIDDIURETIC [facility] Stop: 05/04/18 08:01 Last Admin: 11/02/17 09:40 Dose: 80 mg Glucagon (Glucagen) 1 mg IM ONCE PRN PRN Reason: Hypoglycemia Stop: 05/03/18 21:21 Glucose (Gluctose) 15 gm PO ONCE PRN PRN Reason: Hypoglycemia Stop: 05/03/18 21:21 Glucose (Gluctose) 30 gm PO ONCE PRN PRN Reason: Hypoglycemia Stop: 05/03/18 21:21 Heparin Sodium (Porcine) (Heparin) 4,000 unit IVP Q6HR PRN PRN Reason: SEE COMMENTS Stop: 05/03/18 20:18 Heparin Sodium (Porcine) (Heparin) 2,000 unit IVP Q6H PRN PRN Reason: SEE COMMENTS Stop: 05/03/18 20:18 Last Admin: 11/02/17 12:33 Dose: 2,000 unit Hydralazine HCl (Hydralazine) 10 mg IVP Q6HR PRN PRN Reason: Hypertension Stop: 05/03/18 21:03 Last Admin: 11/02/17 10:36 Dose: 10 mg Heparin Sodium/Dextrose (Heparin 25,000 Unit/500 Ml D5w) 25,000 unit in 500 mls @ 20.003 mls/hr IVC .Q24H CARISA; 7 UNIT/KG/HR PRN Reason: Protocol Stop: 05/03/18 20:31 Last Titration: 11/02/17 12:32 Dose: 9.69 unit/kg/hr, 27.7 mls/hr Dextrose (Dextrose 5%) 1,000 mls @ 100 mls/hr IVC .Q10H PRN PRN Reason: HYPOGLYCEMIA Stop: 05/03/18 21:21 Cefepime HCl 1,000 mg/ Sterile (Water) 10 mls @ 150 mls/hr IVP Q12H [facility] Stop: 05/03/18 22:01 Last Admin: 11/02/17 12:31 Dose: 150 mls/hr Insulin Human Lispro (Humalog) 0 units SQ TIDAC [facility] PRN Reason: Protocol Stop: 05/03/18 21:31 Last Admin: 11/02/17 12:44 Dose: Not Given Insulin Human Lispro (Humalog) 0 units SQ HS [facility] PRN Reason: Protocol Stop: 05/04/18 21:01 Levothyroxine Sodium (Synthroid) 75 mcg PO 0630 [facility] Stop: 05/04/18 06:31 Last Admin: 11/02/17 06:41 Dose: 75 mcg Methylprednisolone (Solu-Medrol) 40 mg IVP Q8H [facility] Stop: 05/04/18 02:01 Last Admin: 11/02/17 10:35 Dose: 40 mg Naloxone HCl (Narcan) 0.4 mg IVP Q2MIN PRN PRN Reason: Opioid Reversal Stop: 05/03/18 21:08 Nitroglycerin (Nitroglycerin) 0.4 mg SL Q5MIN PRN PRN Reason: Chest Pain Stop: 05/03/18 21:03 Omeprazole (Prilosec) 40 mg PO DAILY@0630 [facility] PRN Reason: Protocol Stop: 05/04/18 06:31 Last Admin: 11/02/17 06:41 Dose: 40 mg Ondansetron HCl (Zofran) 4 mg IVP Q8HR PRN PRN Reason: Nausea And Vomiting Stop: 05/03/18 21:08 Oseltamivir Phosphate (Tamiflu) 75 mg PO BID [facility] Stop: 05/04/18 09:01 Last Admin: 11/02/17 09:41 Dose: 75 mg Oxycodone HCl (Roxicodone) 5 mg PO Q6HR PRN PRN Reason: Moderate Pain (4-6) Stop: 05/03/18 21:08 Oxycodone/Acetaminophen (Percocet 10/325) 1 each PO Q6H PRN PRN Reason: severe pain Stop: 05/03/18 21:06 Pharmacy Profile Note (Patient Taking Own Medication) 1 each SQ BID [facility] Stop: 05/04/18 09:01 Last Admin: 11/02/17 09:41 Dose: Not Given - Imaging and Cardiology Echo: report reviewed Other Results: 12 hour tele: avg HR=76 SR. No significant event noted. - EKG Interpretation EKG results cardiology: personally reviewed Consult Discharge Plan - Plan Referrals: Beverley Baum MD [Primary Care Provider] -
[2017-11-02 13:53] LABS: ABG Base Excess 9 mEq/L (-2 to 3); ABG HCO3 41 mEq/L (21-27); ABG Oxygen Saturation 95 % (95-98); ABG PCO2 85 mmHg (35-45); ABG PH 7.29 pH Units (7.32-7.45); ABG PO2 92 mmHg (85-104); ABG TCO2 43 mEq/L (20-26); Blood Gas Modality CPAP/PS; Blood Gas PEEP 6 cm H2O; Blood Gas Pressure Support 18 cm H2O
[2017-11-02] MEDS ORDERED: Furosemide 40 MG/4 ML VIAL IVP ONE (15:05)
[2017-11-02] MEDS: Heparin 25,000 UNIT/500 ML D5W 25,000 UNIT/500 ML BAG IVC SCH (15:13)
[2017-11-02 16:56] LABS: Albumin 3.9 g/dL (3.5-5.7); Calcium 9.3 mg/dL (8.6-10.3); Phosphorous 5.5 mg/dL (2.7-4.5); Potassium 5.2 mEq/L (3.5-5.1)
[2017-11-03] MEDS: INSULIN GLARGINE SQ SCH ×3 (00:11→21:21)
[2017-11-03] MEDS: Insulin LISPRO 300 UNITS/3 ML VIAL SQ SCH ×5 (00:11→21:36)
[2017-11-03] MEDS: Oseltamivir Phosphate 30 MG CAPSULE PO SCH ×3 (00:12→21:31)
[2017-11-03] MEDS: Cefepime HCl 1,000 MG in Water for inj. (sterile) 10 ML IVP SCH ×3 (00:14→22:55)
[2017-11-03] MEDS: MethylPREDNISolone 40 MG/ML VIAL IVP SCH ×3 (01:12→18:14)
[2017-11-03] MEDS: Ipratropium/Albuterol Neb 3 ML IH SCH ×4 (04:02→22:19)
[2017-11-03] MEDS: Heparin 25,000 UNIT/500 ML D5W 25,000 UNIT/500 ML BAG IVC SCH (07:32)
[2017-11-03 09:39] LABS: Hematocrit 48.6 % (37.5-50.1); Hemoglobin 14.8 g/dL (12.9-16.9); Mean Corpuscular HGB Conc 30.5 g/dL (31.6-35.5); Mean Corpuscular Hemoglobin 28.2 pg (28.0-33.3); Mean Corpuscular Volume 92.7 fL (83.0-100.0); Mean Platelet Volume 10.2 fL (9.4-12.4); Platelet Count 204 K/mcL (140-400); Red Blood Count 5.24 M/mcL (4.19-5.50); Red Cell Distribution Width 15.4 % (11.5-14.5)
[2017-11-03 09:58] LABS: Calcium 8.6 mg/dL (8.6-10.3); Magnesium 2.5 mg/dL (1.6-2.6); Potassium 4.3 mEq/L (3.5-5.1)
--- NOTE | 2017-11-03 10:01 | Cardiology Progress Note ---
Date of Encounter: 11/03/17 Time of Encounter: 08:00 Assessment and Plan (1) Elevated troponin Current Visit: Yes Status: Acute Troponin 0.4, 0.28, 0.18 in the setting of respiratory failure; likely secondary to demand ischemia. Patient is chest pain free. No significant ECG changes noted. Flu positive, CXR concerning for PNA. Continue asa and statin. Consider addition of betablocker once respiratory status improves. Check TTE to eval structure and function. (EF 55-60% per TTE 2016)-- results pending. Can consider ischemic evaluation in the outpatient setting once respiratory issues resolved. (2) Pneumonia Current Visit: Yes Status: Suspected mgmt per primary service. Qualifiers: Pneumonia type: due to other aerobic Gram-negative bacteria Laterality: right Lung location: lower lobe of lung Qualified Code(s): J15.6 - Pneumonia due to other Gram-negative bacteria Discussion w patient/family: The assessment and plan as outlined above was discussed with the patient and/or family members who expressed understanding and agreement. All questions were answered. Thank you for involving us in the care of your patient. Please call with any questions. The patient will be discussed and reviewed with Dr. Pryor; changes to be made accordingly. Subjective Principal diagnosis: Elevated troponin, respiratory failure Interval history: Seen and examined. Patient on bipap this AM. Denies chest pain/discomfort. No events overnight per bedside RN. Objective Vital Signs, Last 4 Hours Temp Pulse Resp BP Pulse Ox 11/03/17 07:27 97.9 F 67 16 166/79 93 General: Conversant, Other (on Bipap. morbidly obese) HEENT: Atraumatic, Normocephaly Cardiac: Reg Rate and Rhythm, Normal S1 and S2 Lungs: Other (decreased) Neuro: Alert and responsive Abdomen: Soft Skin: No rashes noted on visualized skin Musculoskeletal: No Chest Wall Tenderness Extremities: Other (BLE edema, +1 (improved). ) Results 11/03/17 09:04 11/03/17 09:04 Lab Results 11/02/17 11/02/17 11/02/17 10:04 10:04 10:04 WBC Hgb Hct Plt Count APTT 53.8 H Sodium 137 Potassium 5.6 H Chloride 97 L Carbon Dioxide 36 H BUN 52 H Creatinine 1.78 H Glucose 226 H Calcium 8.9 Magnesium Troponin I 0.12 H* 11/02/17 11/02/17 11/03/17 16:27 18:45 02:48 WBC Hgb Hct Plt Count APTT 54.3 H 58.2 H Sodium 137 Potassium 5.2 H Chloride 95 L Carbon Dioxide 36 H BUN 52 H Creatinine 1.75 H Glucose 203 H Calcium 9.3 Magnesium Troponin I 11/03/17 11/03/17 11/03/17 09:04 09:04 09:04 WBC 8.0 Hgb 14.8 Hct 48.6 Plt Count 204 APTT 66.0 H Sodium 141 Potassium 4.3 Chloride 97 L Carbon Dioxide 38 H BUN 56 H Creatinine 1.66 H Glucose 147 H Calcium 8.6 Magnesium 2.5 Troponin I Active Medications Acetaminophen (Tylenol) 650 mg PO Q4HR PRN PRN Reason: fever and mild pain Stop: 05/03/18 21:03 Albuterol/Ipratropium (Duoneb) 3 ml IH [id number] CARISA PRN Reason: Protocol Stop: 05/03/18 22:01 Last Admin: 11/03/17 09:46 Dose: 3 ml Allopurinol (Zyloprim) 300 mg PO DAILY [facility] Stop: 05/04/18 09:01 Last Admin: 11/02/17 09:41 Dose: 300 mg Aspirin (Aspirin Ec) 81 mg PO DAILY [facility] Stop: 05/05/18 09:01 Atorvastatin Calcium (Lipitor) 40 mg PO HS [facility] Stop: 05/03/18 21:16 Last Admin: 11/03/17 00:11 Dose: Not Given Dextrose/Water (Dextrose 50% (Syg)) 25 ml IVP AD PRN PRN Reason: Hypoglycemia Stop: 05/03/18 21:21 Furosemide (Lasix) 80 mg PO TIDDIURETIC CARISA Stop: 05/04/18 08:01 Last Admin: 11/02/17 18:27 Dose: 80 mg Glucagon (Glucagen) 1 mg IM ONCE PRN PRN Reason: Hypoglycemia Stop: 05/03/18 21:21 Glucose (Gluctose) 15 gm PO ONCE PRN PRN Reason: Hypoglycemia Stop: 05/03/18 21:21 Glucose (Gluctose) 30 gm PO ONCE PRN PRN Reason: Hypoglycemia Stop: 05/03/18 21:21 Hydralazine HCl (Hydralazine) 10 mg IVP Q6HR PRN PRN Reason: Hypertension Stop: 05/03/18 21:03 Last Admin: 11/02/17 10:36 Dose: 10 mg Dextrose (Dextrose 5%) 1,000 mls @ 100 mls/hr IVC .Q10H PRN PRN Reason: HYPOGLYCEMIA Stop: 05/03/18 21:21 Cefepime HCl 1,000 mg/ Sterile (Water) 10 mls @ 150 mls/hr IVP Q12H [facility] Stop: 05/03/18 22:01 Last Admin: 11/03/17 00:14 Dose: 150 mls/hr Insulin Human Lispro (Humalog) 0 units SQ TIDAC [facility] PRN Reason: Protocol Stop: 05/03/18 21:31 Last Admin: 11/02/17 18:28 Dose: 6 units Insulin Human Lispro (Humalog) 0 units SQ HS [facility] PRN Reason: Protocol Stop: 05/04/18 21:01 Last Admin: 11/03/17 00:11 Dose: Not Given Levothyroxine Sodium (Synthroid) 75 mcg PO 0630 [facility] Stop: 05/04/18 06:31 Last Admin: 11/03/17 07:31 Dose: 75 mcg Methylprednisolone (Solu-Medrol) 40 mg IVP Q8H [facility] Stop: 05/04/18 02:01 Last Admin: 11/03/17 01:12 Dose: 40 mg Naloxone HCl (Narcan) 0.4 mg IVP Q2MIN PRN PRN Reason: Opioid Reversal Stop: 05/03/18 21:08 Nitroglycerin (Nitroglycerin) 0.4 mg SL Q5MIN PRN PRN Reason: Chest Pain Stop: 05/03/18 21:03 Omeprazole (Prilosec) 40 mg PO DAILY@0630 [facility] PRN Reason: Protocol Stop: 05/04/18 06:31 Last Admin: 11/03/17 07:31 Dose: 40 mg Ondansetron HCl (Zofran) 4 mg IVP Q8HR PRN PRN Reason: Nausea And Vomiting Stop: 05/03/18 21:08 Oseltamivir Phosphate (Tamiflu) 30 mg PO BID [facility] Stop: 11/06/17 21:01 Last Admin: 11/03/17 00:12 Dose: Not Given Oxycodone HCl (Roxicodone) 5 mg PO Q6HR PRN PRN Reason: Moderate Pain (4-6) Stop: 05/03/18 21:08 Oxycodone/Acetaminophen (Percocet 10/325) 1 each PO Q6H PRN PRN Reason: severe pain Stop: 05/03/18 21:06 Pharmacy Profile Note (Patient Taking Own Medication) 1 each SQ BID [facility] Stop: 05/04/18 09:01 Last Admin: 11/03/17 00:11 Dose: Not Given - Imaging and Cardiology Echo: pending Other Results: 12 hour tele: avg HR=73 SR. No events noted. - EKG Interpretation EKG results cardiology: personally reviewed Consult Discharge Plan - Plan Referrals: Beverley Baum MD [Primary Care Provider] -
--- NOTE | 2017-11-03 10:15 | Internal Med Progress Note ---
Date of Encounter: 11/03/17 Time of Encounter: 09:50 - Assessment and plan (1) Acute respiratory failure Current Visit: Yes Status: Acute Assessment and plan: Pt admitted with acute hypoxia. Hypercapnia appears to have improved - pt awake and oriented Continue oxygen supplementation and weaning. Qualifiers: Respiratory failure complication: hypoxia and hypercapnia Qualified Code(s) : J96.01 - Acute respiratory failure with hypoxia; J96.02 - Acute respiratory failure with hypercapnia; J96.02 - Acute respiratory failure with hypercapnia; J96.02 - Acute respiratory failure with hypercapnia (2) Hyperkalemia Current Visit: Yes Status: Resolved Assessment and plan: Resolved this AM. Potassium supplement and Aldactone currently on hold - may need to restart soon. (3) Pneumonia Current Visit: Yes Status: Suspected Assessment and plan: Has infiltrate in R lung. Currently on Cefepime and Levaquin. Do not feel there is a need for IV Vanc Currently on Solumedrol and aerosols as well. Will try wean steroids. Qualifiers: Pneumonia type: due to other aerobic Gram-negative bacteria Laterality: right Lung location: lower lobe of lung Qualified Code(s): J15.6 - Pneumonia due to other Gram-negative bacteria (4) NSTEMI (non-ST elevated myocardial infarction) Current Visit: Yes Status: Ruled-out Assessment and plan: Asymptomatic at this time. Cardiology input appreciated. (5) Influenza Current Visit: No Status: Acute Assessment and plan: Completed Tamiflu. Droplet isolation. (6) Tracheostomy care Current Visit: Yes Status: Chronic Assessment and plan: Chronic issue. (7) Diabetes mellitus Current Visit: No Status: Chronic Assessment and plan: Currently on accuchecks and sliding scale insulin. Avoiding nephrotoxins as able. Qualifiers: Diabetes mellitus type: type 2 Diabetes mellitus complication status: with kidney complications Diabetes mellitus complication detail: with chronic kidney disease Diabetes mellitus care home insulin use: with manager intermediate use Chronic kidney disease stage: stage 3 (moderate) Qualified Code(s): E11.22 - Type 2 diabetes mellitus with diabetic chronic kidney disease; N18.3 - Chronic kidney disease, stage 3 (moderate); N18.3 - Chronic kidney disease, stage 3 ( moderate); Z79.4 - half-way (current) use of insulin; Z79.4 - half-way ( current) use of insulin; Z79.4 - half-way (current) use of insulin; Z79.4 - continuous churn buttermaker (current) use of insulin (8) Diastolic heart failure Current Visit: No Status: Chronic Assessment and plan: Chronic issue Continue meds and monitor volume status. Qualifiers: Heart failure chronicity: chronic Qualified Code(s): I50.32 - Chronic diastolic (congestive) heart failure (9) Hypothyroidism Current Visit: No Status: Chronic Assessment and plan: Continue medication Qualifiers: Hypothyroidism type: acquired Qualified Code(s): E03.9 - Hypothyroidism, unspecified (10) COPD (chronic obstructive pulmonary disease) Current Visit: No Status: Chronic Assessment and plan: On oxygen, bipap, steroids and aerosols. Qualifiers: COPD type: unspecified COPD Qualified Code(s): J44.9 - Chronic obstructive pulmonary disease, unspecified (11) Obesity hypoventilation syndrome Current Visit: No Status: Chronic Assessment and plan: Chronic trach patient. - Subjective Interval history: Mr Zaman is currently admitted for acute respiratory failure related to pneumonia and influenza. He remains at moderate to high risk due to potential for worsening clinical and respiratory status. Mr Zaman is more awake this AM. He just finished breakfast. No fever. He is tolerating IV abx. No GI issues. Still with some coughing but not getting anything up right now. - Constitutional Vitals: Temp Pulse Resp BP Pulse Ox 97.9 F 67 16 166/79 93 11/03/17 07:27 11/03/17 07:27 11/03/17 07:27 11/03/17 07:27 11/03/17 07:27 General appearance: Present: A&O X 3 - Head Head exam: Present: atraumatic, normocephalic - Eye Eye exam: Present: EOMI, conjuntiva pink - ENT ENT exam: Present: mucous membranes moist - Respiratory Respiratory exam: Present: CTAB. Absent: rales, respiratory distress, rhonchi, wheezes - Cardiovascular Cardiovascular exam: Present: RRR. Absent: systolic murmur, tachycardia - GI/Abdominal GI/Abdominal exam: Present: normal bowel sounds, soft. Absent: tenderness - Extremities Exam Extremities exam: Present: warm. Absent: tenderness - Neurological Exam Neurological exam: Present: alert, oriented X3 - Skin Skin exam: Present: dry, warm. Absent: rash Internal Medicine: Result - Labs CBC & Chem 7: 11/03/17 09:04 11/03/17 09:04 Labs: Short CBC 11/03/17 Range/Units 09:04 WBC 8.0 (4.3-11.1) K/mcL Hgb 14.8 (12.9-16.9) g/dL Hct 48.6 (37.5-50.1) % Plt Count 204 (140-400) K/mcL BMP 11/02/17 11/02/17 11/03/17 10:04 16:27 09:04 Sodium 137 137 141 Potassium 5.6 H 5.2 H 4.3 Chloride 97 L 95 L 97 L Carbon Dioxide 36 H 36 H 38 H BUN 52 H 52 H 56 H Creatinine 1.78 H 1.75 H 1.66 H Glucose 226 H 203 H 147 H Calcium 8.9 9.3 8.6 Cardiac Enzymes 11/02/17 Range/Units 10:04 Troponin I 0.12 H* (< 0.04) ng/mL Liver Function 11/02/17 11/02/17 Range/Units 10:04 16:27 Albumin 4.0 3.9 (3.5-5.7) g/dL - ABG Interpretation ABG results: ABG ABG pH 7.29 pH Units (7.32-7.45) L D 11/02/17 13:35 ABG pCO2 85 mmHg (35-45) H* D 11/02/17 13:35 ABG pO2 92 mmHg (85-104) 11/02/17 13:35 ABG O2 Saturation 95 % (95-98) 11/02/17 13:35 PT/INR, D-dimer PT 10.8 Seconds (9.4-12.1) 11/01/17 20:42 Consult Discharge Plan - Plan Referrals: Beverley Baum MD [Primary Care Provider] -
[2017-11-03] MEDS: Furosemide 40 MG TABLET PO SCH ×3 (10:41→18:14)
[2017-11-03] MEDS: Aspirin Enteric Coated 81 MG Tablet PO SCH (10:41)
[2017-11-03] MEDS: Budesonide/Formoterol 160/4.5 MDI IH SCH (22:39)
[2017-11-04 03:50] LABS: Hematocrit 48.2 % (37.5-50.1); Hemoglobin 14.5 g/dL (12.9-16.9); Mean Corpuscular HGB Conc 30.1 g/dL (31.6-35.5); Mean Corpuscular Hemoglobin 27.5 pg (28.0-33.3); Mean Corpuscular Volume 91.5 fL (83.0-100.0); Platelet Count 203 K/mcL (140-400); Red Blood Count 5.27 M/mcL (4.19-5.50); Red Cell Distribution Width 15.4 % (11.5-14.5)
[2017-11-04] MEDS: MethylPREDNISolone 40 MG/ML VIAL IVP SCH ×2 (04:15→16:29)
[2017-11-04] MEDS ORDERED: 0.9 % Sodium Chloride 1,000 ML IVC ONE (04:41)
[2017-11-04] MEDS: *HR* OxyCODONE/APAP 10/325 TABLET PO PRN (04:50)
[2017-11-04 05:09] LABS: Calcium 8.7 mg/dL (8.6-10.3); Magnesium 2.4 mg/dL (1.6-2.6); Potassium 4.3 mEq/L (3.5-5.1)
[2017-11-04] MEDS: Ipratropium/Albuterol Neb 3 ML IH SCH ×4 (05:33→22:47)
--- NOTE | 2017-11-04 07:53 | Event Note ---
Date of Encounter: 11/04/17 Time of Encounter: 07:53 - Cardiology Event Note Echo EF 65%, preserved. Recommendations per progress note. Cardiology signing off. Reconsult PRN.
[2017-11-04] MEDS: Budesonide/Formoterol 160/4.5 MDI IH SCH ×2 (09:56→22:48)
[2017-11-04] MEDS: Oseltamivir Phosphate 30 MG CAPSULE PO SCH (10:13)
[2017-11-04] MEDS: Furosemide 40 MG TABLET PO SCH ×3 (10:14→17:41)
[2017-11-04] MEDS: Aspirin Enteric Coated 81 MG Tablet PO SCH (10:14)
[2017-11-04] MEDS: Magnesium Oxide 400 MG TABLET PO SCH (10:14)
[2017-11-04] MEDS: INSULIN GLARGINE SQ SCH (10:15)
[2017-11-04] MEDS: Insulin LISPRO 300 UNITS/3 ML VIAL SQ SCH ×4 (10:15→21:22)
--- NOTE | 2017-11-04 11:50 | Internal Med Progress Note ---
<Niraj Paulson - Last Filed: 11/04/17 18:42> Date of Encounter: 11/04/17 Time of Encounter: 11:49 - Assessment and plan (1) Atrial fibrillation with RVR Current Visit: Yes Status: Acute Assessment and plan: New onset atrial fibrillation with rapid ventricular rate started November 04 2017 in the morning. Patient was asymptomatic and denies any previous history of atrial fibrillation rapid ventricular rate. Risk factors include obstructive sleep apnea, COPD, obesity, tracheostomy dependency, type 2 diabetes and NSTEMI. Echocardiogram: Impressions: Technically adequate exam, limited study, no dopplers. Normal sinus rhythm. LVEF 65%. Normal LV chamber size, wall thickness and function. Valves grossly normal on limited exam. Plan: -Start Cardizem drip with plans to transition to oral Cardizem - EKG correlates with a chair fibrillation with rapid ventricular rate - CHADS VASc score 3, patient will require anticoagulation long-term. - Address underlying medical conditions. (2) Pneumonia Current Visit: Yes Status: Suspected Assessment and plan: Right lower lobe pneumonia in a male with risk factors. -Currently on Cefepime and Levaquin. - Continue IV solu-medrol and breathing treatments Qualifiers: Pneumonia type: due to other aerobic Gram-negative bacteria Laterality: right Lung location: lower lobe of lung Qualified Code(s): J15.6 - Pneumonia due to other Gram-negative bacteria (3) Influenza Current Visit: No Status: Acute Assessment and plan: Completed Tamiflu. Continue Droplet isolation. (4) Acute and chronic respiratory failure Current Visit: Yes Status: Acute Assessment and plan: Patient with underlying COPD, obstructive sleep apnea presented with pneumonia, influenza and COPD exacerbation. Plan as discussed above. - Continue weaning oxygen as tolerated - Continue IV steroids with plans to switch to oral total of 5 days - Continue scheduled bronchodilators Qualifiers: Qualified Code(s): J96.20 - Acute and chronic respiratory failure, unspecified whether with hypoxia or hypercapnia (5) Diastolic heart failure Current Visit: No Status: Chronic Assessment and plan: Patient does not appear to be volume overloaded, BNP 121. Echocardiogram: Impressions: Technically adequate exam, limited study, no dopplers. Normal sinus rhythm. LVEF 65%. Normal LV chamber size, wall thickness and function. Valves grossly normal on limited exam. Qualifiers: Heart failure chronicity: chronic Qualified Code(s): I50.32 - Chronic diastolic (congestive) heart failure (6) Obesity hypoventilation syndrome Current Visit: No Status: Chronic Assessment and plan: Chronic trach patient. (7) Hypothyroidism Current Visit: No Status: Chronic Assessment and plan: Levothyroxine 75 g by mouth daily - TSH 1.425 Qualifiers: Hypothyroidism type: acquired Qualified Code(s): E03.9 - Hypothyroidism, unspecified (8) NSTEMI (non-ST elevated myocardial infarction) Current Visit: Yes Status: Ruled-out Assessment and plan: Patient presented with elevated troponins 0.4, 0.28, 0.18 in the setting of respiratory failure which I suspect to be secondary to demand ischemia. He continues to be chest pain-free. Plan: - Continue aspirin and atorvastatin 40 mg by mouth daily - Cardiology following appreciate recommendations - Continue cardiac monitoring (9) DVT prophylaxis Current Visit: No Status: Acute Assessment and plan: Currently on heparin drip - Subjective Interval history: Respiratory status is improved, no acute distress with no concerns at this time. Patient denies any history of previous atrial fibrillation and this is a new diagnosis. No other acute changes overnight. - Constitutional Vitals: Temp Pulse Resp BP Pulse Ox 98.2 F 110 16 117/76 91 11/04/17 11:00 11/04/17 11:00 11/04/17 11:00 11/04/17 11:00 11/04/17 11:00 General appearance: Present: A&O X 3 - Head Head exam: Present: atraumatic, normocephalic - Eye Eye exam: Present: PERRL, conjuntiva pink, sclera anicteric Pupils: Present: PERRL - Neck Neck exam general surgery: Present: supple, trachea midline. Absent: lymphadenopathy Additional comments: Trach in place - Respiratory Respiratory exam: Present: rhonchi, wheezes. Absent: accessory muscle use, rales - Cardiovascular Cardiovascular exam: Present: irregular rhythm. Absent: diastolic murmur, gallop, rubs, systolic murmur - GI/Abdominal GI/Abdominal exam: Present: normal bowel sounds, soft, no peritoneal signs. Absent: distended, tenderness - Extremities Exam Extremities exam: Present: warm, radial pulses palpable and symmetrical. Absent : calf tenderness, cyanotic, pedal edema - Neurological Exam Neurological exam: Present: CN II-XII intact, oriented X3, no focal deficits. Absent: pronater drift, facial droop, speech deficit - Skin Skin exam: Present: dry, intact Internal Medicine: Result - Labs CBC & Chem 7: 11/04/17 16:36 11/04/17 03:15 Labs: Short CBC 11/04/17 Range/Units 03:15 WBC 8.4 (4.3-11.1) K/mcL Hgb 14.5 (12.9-16.9) g/dL Hct 48.2 (37.5-50.1) % Plt Count 203 (140-400) K/mcL BMP 11/04/17 03:15 Sodium 140 Potassium 4.3 Chloride 97 L Carbon Dioxide 37 H BUN 57 H Creatinine 1.68 H Glucose 127 H Calcium 8.7 - ABG Interpretation ABG results: ABG ABG pH 7.29 pH Units (7.32-7.45) L D 11/02/17 13:35 ABG pCO2 85 mmHg (35-45) H* D 11/02/17 13:35 ABG pO2 92 mmHg (85-104) 11/02/17 13:35 ABG O2 Saturation 95 % (95-98) 11/02/17 13:35 PT/INR, D-dimer PT 10.8 Seconds (9.4-12.1) 11/01/17 20:42 - Impressions Impressions Echocardiogram Limited Views 11/02/17 11:00 Impressions: Technically adequate exam, limited study, no dopplers. Normal sinus rhythm. LVEF 65%. Normal LV chamber size, wall thickness and function. Valves grossly normal on limited exam. Left Ventricular Wall Motion: Rest Echo Findings All wall segments showed normal motion. Findings: Study Quality * Technically adequate exam, limited study, no dopplers. ECG Findings * Normal sinus rhythm. Left Ventricle * LVEF 65%. * Normal LV chamber size, wall thickness and function. Right Ventricle * Normal right ventricular structure and function. Left Atrium * Normal left atrial size. Right Atrium * Normal right atrial size. Interatrial Septum * No evidence of PFO by color Doppler. Aortic Valve * Trileaflet aortic valve. * Normal aortic valve structure. Mitral Valve * Normal mitral valve structure. Tricuspid Valve * Normal tricuspid valve structure. Pulmonic Valve * Pulmonic valve is not well visualized. Aorta * Normally sized aortic root. Pericardium * The pericardium appears normal. Consult Discharge Plan - Plan Referrals: Beverley Baum MD [Primary Care Provider] - Prescriptions: Apixaban [Eliquis] 5 mg PO BID #60 tablet <Nithin Elias - Last Filed: 11/04/17 19:05> Date of Encounter: 11/04/17 - Assessment and plan (1) Acute respiratory failure Current Visit: Yes Status: Acute Qualifiers: Respiratory failure complication: hypoxia and hypercapnia Qualified Code(s) : J96.01 - Acute respiratory failure with hypoxia; J96.02 - Acute respiratory failure with hypercapnia; J96.02 - Acute respiratory failure with hypercapnia; J96.02 - Acute respiratory failure with hypercapnia (2) Atrial fibrillation Current Visit: Yes Status: Acute Qualifiers: Atrial fibrillation type: paroxysmal Qualified Code(s): I48.0 - Paroxysmal atrial fibrillation (3) Hyperkalemia Current Visit: Yes Status: Resolved (4) Pneumonia Current Visit: Yes Status: Suspected Qualifiers: Pneumonia type: due to other aerobic Gram-negative bacteria Laterality: right Lung location: lower lobe of lung Qualified Code(s): J15.6 - Pneumonia due to other Gram-negative bacteria (5) NSTEMI (non-ST elevated myocardial infarction) Current Visit: Yes Status: Ruled-out (6) Influenza Current Visit: No Status: Acute (7) Tracheostomy care Current Visit: Yes Status: Chronic (8) Diabetes mellitus Current Visit: No Status: Chronic Qualifiers: Diabetes mellitus type: type 2 Diabetes mellitus complication status: with kidney complications Diabetes mellitus complication detail: with chronic kidney disease Diabetes mellitus [facility] insulin use: with intermodal dispatcher use Chronic kidney disease stage: stage 3 (moderate) Qualified Code(s): E11.22 - Type 2 diabetes mellitus with diabetic chronic kidney disease; N18.3 - Chronic kidney disease, stage 3 (moderate); N18.3 - Chronic kidney disease, stage 3 ( moderate); Z79.4 - termination clerk (current) use of insulin; Z79.4 - long-term ( current) use of insulin; Z79.4 - long-term (current) use of insulin; Z79.4 - termination clerk (current) use of insulin (9) Diastolic heart failure Current Visit: No Status: Chronic Qualifiers: Heart failure chronicity: chronic Qualified Code(s): I50.32 - Chronic diastolic (congestive) heart failure (10) Hypothyroidism Current Visit: No Status: Chronic Qualifiers: Hypothyroidism type: acquired Qualified Code(s): E03.9 - Hypothyroidism, unspecified (11) COPD (chronic obstructive pulmonary disease) Current Visit: No Status: Chronic Qualifiers: COPD type: unspecified COPD Qualified Code(s): J44.9 - Chronic obstructive pulmonary disease, unspecified (12) Obesity hypoventilation syndrome Current Visit: No Status: Chronic - Constitutional Vitals: Temp Pulse Resp BP Pulse Ox 98.1 F 126 16 145/78 93 11/04/17 15:32 11/04/17 15:32 11/04/17 15:54 11/04/17 15:32 11/04/17 15:54 Internal Medicine: Result - Labs CBC & Chem 7: 11/04/17 16:36 11/04/17 03:15 Labs: Short CBC 11/04/17 11/04/17 Range/Units 03:15 16:36 WBC 8.4 8.4 (4.3-11.1) K/mcL Hgb 14.5 14.7 (12.9-16.9) g/dL Hct 48.2 48.0 (37.5-50.1) % Plt Count 203 173 (140-400) K/mcL BMP 11/04/17 03:15 Sodium 140 Potassium 4.3 Chloride 97 L Carbon Dioxide 37 H BUN 57 H Creatinine 1.68 H Glucose 127 H Calcium 8.7 Cardiac Enzymes 11/04/17 Range/Units 12:21 Troponin I 0.10 H* (< 0.04) ng/mL - ABG Interpretation ABG results: ABG ABG pH 7.29 pH Units (7.32-7.45) L D 11/02/17 13:35 ABG pCO2 85 mmHg (35-45) H* D 11/02/17 13:35 ABG pO2 92 mmHg (85-104) 11/02/17 13:35 ABG O2 Saturation 95 % (95-98) 11/02/17 13:35 PT/INR, D-dimer PT 11.0 Seconds (9.4-12.1) 11/04/17 16:36 - Impressions Impressions Echocardiogram Limited Views 11/02/17 11:00 Impressions: Technically adequate exam, limited study, no dopplers. Normal sinus rhythm. LVEF 65%. Normal LV chamber size, wall thickness and function. Valves grossly normal on limited exam. Left Ventricular Wall Motion: Rest Echo Findings All wall segments showed normal motion. Findings: Study Quality * Technically adequate exam, limited study, no dopplers. ECG Findings * Normal sinus rhythm. Left Ventricle * LVEF 65%. * Normal LV chamber size, wall thickness and function. Right Ventricle * Normal right ventricular structure and function. Left Atrium * Normal left atrial size. Right Atrium * Normal right atrial size. Interatrial Septum * No evidence of PFO by color Doppler. Aortic Valve * Trileaflet aortic valve. * Normal aortic valve structure. Mitral Valve * Normal mitral valve structure. Tricuspid Valve * Normal tricuspid valve structure. Pulmonic Valve * Pulmonic valve is not well visualized. Aorta * Normally sized aortic root. Pericardium * The pericardium appears normal. - Attending Attestation I examined this patient and my medical decision-making was reviewed with the Resident Physician on 11/04/17. I agree with the documented findings, disposition and treatment plan as described except to the extent set forth below. Mr. Zaman is currently admitted for resp failure and pneumonia. He has developed rapid a fib which is new. He remains moderate to high risk due to potential worsening clinical status. Mr Zaman has developed rapid a fib. No fever or chills. Feels he is still very dyspneic. No pain. Never had a fib before. Exam Alert. Comfortable Mucus membranes dry Heart rapid and irreg Lungs with scant rhonchi Abd soft I/P 1. PNA 2. Rapid a fib Further diagnoses and plan as above.
[2017-11-04] MEDS: Cefepime HCl 1,000 MG in Water for inj. (sterile) 10 ML IVP SCH ×2 (12:04→22:51)
--- NOTE | 2017-11-04 15:19 | Cardiology Progress Note ---
Date of Encounter: 11/04/17 Time of Encounter: 15:19 Assessment and Plan (1) Elevated troponin Current Visit: Yes Status: Acute Troponin 0.4, 0.28, 0.18 in the setting of respiratory failure; likely secondary to demand ischemia. Patient is chest pain free. No significant ECG changes noted. Flu positive, CXR concerning for PNA. Continue asa and statin. TTE shows preserved EF. (EF 55-60% per TTE 2016) Can consider ischemic evaluation in the outpatient setting once respiratory issues resolved. (2) Atrial fibrillation with RVR Current Visit: Yes Status: Acute New onset atrial fibrillation with RVR starting today. HR 110-150. On cardizem gtt. Titrate to keep HR less than 100. Once rate controlled convert to oral cardizem. He is a CHADS VASc=3. Anticoagulation with coumadin vs NOAC discussed. He declines coumadin therapy but agrees to NOAC. Known CKD. TTE this admit shows preserved EF, limited study. Full echo in 2013 showed no significant valvular disease. Eliquis sent to [facility] for velazquez check. Heparin gtt for AC. Discussion w patient/family: The assessment and plan as outlined above was discussed with the patient and/or family members who expressed understanding and agreement. All questions were answered. Thank you for involving us in the care of your patient. Please call with any questions. Subjective Principal diagnosis: Elevated troponin, respiratory failure Interval history: Mr. Zaman states that he wants to leave AMA. He denies chest pain or SOB. States he feels he is back to his normal state. Objective Vital Signs Temp Pulse Resp BP Pulse Ox 11/04/17 11:00 98.2 F 110 16 117/76 91 11/04/17 09:57 15 93 11/04/17 07:33 98.2 F 75 15 153/53 93 11/04/17 04:15 78 22 135/60 95 11/03/17 22:19 16 92 11/03/17 21:30 98.4 F 70 18 143/62 93 11/03/17 17:14 98.2 F 84 16 170/71 94 11/03/17 15:58 16 135/77 92 Intake and Output 11/03/17 11/04/17 11/04/17 23:59 07:59 15:59 Intake Total 0 / 0 610 / 610 244 / 244 Output Total 1350 / 1350 700 / 700 Balance -1350 / -1350 -90 / -90 244 / 244 Intake: IV Fluids 4 / 4 Cardizem 125 MG In 0.9 % Sodium 4 / 4 Chloride 100 ML @ 5 MG/HR 5 mls/hr IVC .Q24H [facility] Rx#: [id number] Maxipime 1,000 MG In Water for inj. (sterile) 10 ML @ 150 mls/ hr IVP Q12H [facility] Rx#:[id number] Oral 0 / 0 600 / 600 240 / 240 Output: Urine 1350 / 1350 700 / 700 Other: Meal Breakfast Percent of Meal Consumed 60% Weight 137.4 kg Blood Glucose* 156 107 162 Patient Weight 11/04/17 23:59 Weight 137.4 kg General: Conversant, No Apparent Distress HEENT: Atraumatic, Normocephaly, Mucus Membranes Moist Neck: No JVD, Normal carotid pulses Cardiac: Other (Irregular) Lungs: Normal Breath Sounds, No Wheeze, Rales, Rhonchi Neuro: Alert and responsive, No focal deficits noted Abdomen: Soft, Non-Tender Skin: No rashes noted on visualized skin Musculoskeletal: No Chest Wall Tenderness Extremities: No Clubbing, No Cyanosis, No Edema, Normal Pulses, Other (Knot noted on left cho) Results 11/04/17 03:15 11/04/17 03:15 Lab Results 11/04/17 11/04/17 11/04/17 03:15 03:15 12:21 WBC 8.4 Hgb 14.5 Hct 48.2 Plt Count 203 Sodium 140 Potassium 4.3 Chloride 97 L Carbon Dioxide 37 H BUN 57 H Creatinine 1.68 H Glucose 127 H Calcium 8.7 Magnesium 2.4 Troponin I TSH 1.425 11/04/17 12:21 WBC Hgb Hct Plt Count Sodium Potassium Chloride Carbon Dioxide BUN Creatinine Glucose Calcium Magnesium Troponin I 0.10 H* TSH - Imaging and Cardiology Echo: report reviewed - EKG Interpretation EKG results cardiology: personally reviewed Consult Discharge Plan - Plan Referrals: Beverley Baum MD [Primary Care Provider] -
[2017-11-04] MEDS ORDERED: *HR* Heparin 5,000 UNIT/ML VIAL IVP ONE (15:31)
[2017-11-04] MEDS ORDERED: *HR* Heparin 5,000 UNIT/ML VIAL IVP PRN ×2 (15:31)
[2017-11-04] MEDS: Heparin 25,000 UNIT/500 ML D5W 25,000 UNIT/500 ML BAG IVC SCH (16:28)
[2017-11-04 16:44] LABS: Hemoglobin 14.7 g/dL (12.9-16.9); Mean Corpuscular HGB Conc 30.6 g/dL (31.6-35.5); Mean Corpuscular Hemoglobin 27.6 pg (28.0-33.3); Mean Corpuscular Volume 90.1 fL (83.0-100.0); Mean Platelet Volume 9.8 fL (9.4-12.4); Platelet Count 173 K/mcL (140-400); Red Blood Count 5.33 M/mcL (4.19-5.50); Red Cell Distribution Width 15.3 % (11.5-14.5)
[2017-11-04 16:58] LABS: Activated Partial Thrombo Time 25.5 Seconds (26.0-36.0)
[2017-11-05] MEDS: *HR* OxyCODONE/APAP 10/325 TABLET PO PRN ×2 (01:28→12:18)
[2017-11-05] MEDS: MethylPREDNISolone 40 MG/ML VIAL IVP SCH (03:30)
[2017-11-05] MEDS: Ipratropium/Albuterol Neb 3 ML IH SCH ×4 (03:50→21:57)
[2017-11-05 04:59] LABS: Basophils % 0.1 %; Hematocrit 47.1 % (37.5-50.1); Hemoglobin 14.7 g/dL (12.9-16.9); Immature Granulocytes % 0.4 % (0-4); Lymphocytes # 0.7 K/mcL (0.6-4.6); Lymphocytes % 8.5 %; Mean Corpuscular HGB Conc 31.2 g/dL (31.6-35.5); Mean Corpuscular Hemoglobin 28.3 pg (28.0-33.3); Mean Corpuscular Volume 90.6 fL (83.0-100.0); Mean Platelet Volume 10.3 fL (9.4-12.4); Monocytes # 0.5 K/mcL (0.0-1.3); Monocytes % 6.1 %; Neutrophils # 6.5 K/mcL (1.6-8.9); Platelet Count 177 K/mcL (140-400); Red Cell Distribution Width 15.3 % (11.5-14.5); Segmented Neutrophils % 84.9 %
[2017-11-05 05:19] LABS: Albumin 3.5 g/dL (3.5-5.7); Albumin/Globulin Ratio 1.2 (1.1-2.2); Bilirubin,Total 0.4 mg/dL (0.3-1.0); Calcium 8.6 mg/dL (8.6-10.3); Potassium 4.3 mEq/L (3.5-5.1); Total Protein 6.5 g/dL (6.4-8.9)
[2017-11-05] MEDS: Heparin 25,000 UNIT/500 ML D5W 25,000 UNIT/500 ML BAG IVC SCH (06:42)
[2017-11-05] MEDS: Furosemide 40 MG TABLET PO SCH ×3 (08:04→17:10)
[2017-11-05] MEDS: Aspirin Enteric Coated 81 MG Tablet PO SCH (08:04)
[2017-11-05] MEDS: Magnesium Oxide 400 MG TABLET PO SCH (08:04)
[2017-11-05] MEDS: Insulin LISPRO 300 UNITS/3 ML VIAL SQ SCH ×4 (08:54→22:04)
[2017-11-05] MEDS: Diltiazem CD (24hr) 180 MG CAPSULE PO SCH (08:54)
--- NOTE | 2017-11-05 09:11 | Internal Med Progress Note ---
<Niraj Paulson - Last Filed: 11/05/17 15:10> Date of Encounter: 11/05/17 Time of Encounter: 09:11 - Assessment and plan (1) Atrial fibrillation with RVR Current Visit: Yes Status: Acute Assessment and plan: New onset atrial fibrillation with rapid ventricular rate started November 04 2017 in the morning. Patient was asymptomatic and denies any previous history of atrial fibrillation rapid ventricular rate. Risk factors include obstructive sleep apnea, COPD, obesity, tracheostomy dependency, type 2 diabetes and NSTEMI. 11/05/2017: Patient converted from atrial fibrillation to normal sinus rhythm overnight. Cardizem drip discontinued and placed on oral Cardizem. IV heparin discontinued by cardiology. Patient will continue with oral anticoagulation with a CHADS VASc score 3. We will follow up with cardiology in the outpatient setting. Echocardiogram: Impressions: Technically adequate exam, limited study, no dopplers. Normal sinus rhythm. LVEF 65%. Normal LV chamber size, wall thickness and function. Valves grossly normal on limited exam. Plan: -Continue oral Cardizem - CHADS VASc score 3, Patient to start Eliquis prior to discharging - Address underlying medical conditions. (2) Pneumonia Current Visit: Yes Status: Suspected Assessment and plan: Right lower lobe pneumonia in a male with risk factors. Patient improving today , oxygen requirements decreasing. Plan to switch to just Levaquin discontinue cefepime as patient has responded well. -Currently on Cefepime and Levaquin. (Day 4) Plan to de-escalate antibiotic coverage - Discontinue IV Solu-Medrol and start prednisone 40 mg by mouth daily Qualifiers: Pneumonia type: due to other aerobic Gram-negative bacteria Laterality: right Lung location: lower lobe of lung Qualified Code(s): J15.6 - Pneumonia due to other Gram-negative bacteria (3) Influenza Current Visit: No Status: Acute Assessment and plan: Completed Tamiflu. Continue Droplet isolation. (4) Acute and chronic respiratory failure Current Visit: Yes Status: Acute Assessment and plan: Patient with underlying COPD, obstructive sleep apnea presented with pneumonia, influenza and COPD exacerbation. Plan as discussed above. - Continue weaning oxygen as tolerated - Continue by mouth steroids with total of 5 days - Continue scheduled bronchodilators Qualifiers: Qualified Code(s): J96.20 - Acute and chronic respiratory failure, unspecified whether with hypoxia or hypercapnia (5) Diastolic heart failure Current Visit: No Status: Chronic Assessment and plan: Patient does not appear to be volume overloaded, BNP 121. Echocardiogram: Impressions: Technically adequate exam, limited study, no dopplers. Normal sinus rhythm. LVEF 65%. Normal LV chamber size, wall thickness and function. Valves grossly normal on limited exam. Qualifiers: Heart failure chronicity: chronic Qualified Code(s): I50.32 - Chronic diastolic (congestive) heart failure (6) Obesity hypoventilation syndrome Current Visit: No Status: Chronic Assessment and plan: Chronic trach patient. (7) Hypothyroidism Current Visit: No Status: Chronic Assessment and plan: Levothyroxine 75 g by mouth daily - TSH 1.425 Qualifiers: Hypothyroidism type: acquired Qualified Code(s): E03.9 - Hypothyroidism, unspecified (8) NSTEMI (non-ST elevated myocardial infarction) Current Visit: Yes Status: Ruled-out Assessment and plan: Patient presented with elevated troponins 0.4, 0.28, 0.18 in the setting of respiratory failure which I suspect to be secondary to demand ischemia. He continues to be chest pain-free. - Cardiology has seen and evaluated and signed off. Plan: - Continue aspirin and atorvastatin 40 mg by mouth daily - Cardiology will follow in the outpatient setting. - Continue cardiac monitoring (9) DVT prophylaxis Current Visit: No Status: Acute Assessment and plan: Started Eliquis - Subjective Interval history: Mr. Zaman has been seen and evaluated the patient bedside this morning. He is alert awake interactive in no acute distress. He feels that his respiratory status is much improved compared to yesterday's in no acute distress, denies any productive sputum at this time. He denies any chest pressure, chest pain, shortness of breath, nausea vomiting diarrhea or constipation. He does complain of some mild bloating but does not want any medications. No other acute events overnight. - Constitutional Vitals: Temp Pulse Resp BP Pulse Ox 98.0 F 82 19 168/98 89 11/05/17 04:07 11/05/17 08:00 11/05/17 08:00 11/05/17 08:00 11/05/17 08:00 General appearance: Present: A&O X 3 Exam: General: Patient alert, awake, oriented 3, interactive, in no acute distress HEENT: Normocephalic, atraumatic, pupils equal reactive to light, oral mucosa moist, neck supple trachea midline with tracheostomy in place no palpable lymphadenopathy, no thyromegaly. Chest: Symmetric bilateral correlating with respiratory effort, effort nonlabored. Cardiac: Regular rate and rhythm, positive S1 and S2. no bruits appreciated bilateral carotids, Radial pulses 2+ bilateral, posterior tibial and dorsal pedal pulses 2+ bilateral. Respiratory: Clear to auscultation all lung manzanares Abdomemild distention, nontender, positive bowel sounds, no palpable masses appreciated on examination Extremities: Symmetric bilateral, bilateral lower extremities without erythema or edema patient moving all 4 extremities spontaneously. Neurologic: No focal deficits appreciated on examination. Face symmetric, muscle strength symmetric bilateral upper and lower extremities. Internal Medicine: Result - Labs CBC & Chem 7: 11/05/17 03:59 11/05/17 03:59 Labs: Short CBC 11/04/17 11/05/17 Range/Units 16:36 03:59 WBC 8.4 7.7 (4.3-11.1) K/mcL Hgb 14.7 14.7 (12.9-16.9) g/dL Hct 48.0 47.1 (37.5-50.1) % Plt Count 173 177 (140-400) K/mcL Neutrophils # 6.5 (1.6-8.9) K/mcL BMP 11/05/17 03:59 Sodium 138 Potassium 4.3 Chloride 97 L Carbon Dioxide 34 H BUN 60 H Creatinine 1.62 H Glucose 179 H Calcium 8.6 Cardiac Enzymes 11/04/17 Range/Units 12:21 Troponin I 0.10 H* (< 0.04) ng/mL Liver Function 11/05/17 Range/Units 03:59 Total Bilirubin 0.4 (0.3-1.0) mg/dL AST 33 (13-39) Units/L ALT 76 H (7-52) Units/L Alkaline Phosphatase 72 (34-104) Units/L Albumin 3.5 (3.5-5.7) g/dL - ABG Interpretation ABG results: ABG ABG pH 7.29 pH Units (7.32-7.45) L D 11/02/17 13:35 ABG pCO2 85 mmHg (35-45) H* D 11/02/17 13:35 ABG pO2 92 mmHg (85-104) 11/02/17 13:35 ABG O2 Saturation 95 % (95-98) 11/02/17 13:35 PT/INR, D-dimer PT 11.0 Seconds (9.4-12.1) 11/04/17 16:36 Consult Discharge Plan - Plan Referrals: Beverley Baum MD [Primary Care Provider] - Prescriptions: Apixaban [Eliquis] 5 mg PO BID #60 tablet <Jarrell Perez P - Last Filed: 11/05/17 17:23> Date of Encounter: 11/05/17 - Constitutional Vitals: Temp Pulse Resp BP Pulse Ox 98.0 F 75 19 184/82 95 11/05/17 04:07 11/05/17 16:00 11/05/17 16:00 11/05/17 16:00 11/05/17 16:00 Internal Medicine: Result - Labs CBC & Chem 7: 11/05/17 03:59 11/05/17 03:59 Labs: Short CBC 11/05/17 Range/Units 03:59 WBC 7.7 (4.3-11.1) K/mcL Hgb 14.7 (12.9-16.9) g/dL Hct 47.1 (37.5-50.1) % Plt Count 177 (140-400) K/mcL Neutrophils # 6.5 (1.6-8.9) K/mcL BMP 11/05/17 03:59 Sodium 138 Potassium 4.3 Chloride 97 L Carbon Dioxide 34 H BUN 60 H Creatinine 1.62 H Glucose 179 H Calcium 8.6 Liver Function 11/05/17 Range/Units 03:59 Total Bilirubin 0.4 (0.3-1.0) mg/dL AST 33 (13-39) Units/L ALT 76 H (7-52) Units/L Alkaline Phosphatase 72 (34-104) Units/L Albumin 3.5 (3.5-5.7) g/dL - ABG Interpretation ABG results: ABG ABG pH 7.29 pH Units (7.32-7.45) L D 11/02/17 13:35 ABG pCO2 85 mmHg (35-45) H* D 11/02/17 13:35 ABG pO2 92 mmHg (85-104) 11/02/17 13:35 ABG O2 Saturation 95 % (95-98) 11/02/17 13:35 PT/INR, D-dimer PT 11.0 Seconds (9.4-12.1) 11/04/17 16:36 - Attending Attestation I examined this patient and my medical decision-making was reviewed with the Resident Physician. I agree with the documented findings, disposition and treatment plan as described except to the extent set forth below. 67/male Admitted with new onset of A. fib RVR. Agree with above. Likely home tomorrow.
--- NOTE | 2017-11-05 09:27 | Cardiology Progress Note ---
Date of Encounter: 11/05/17 Time of Encounter: 08:30 Assessment and Plan (1) Atrial fibrillation with RVR Current Visit: Yes Status: Acute New onset atrial fibrillation with RVR starting yesterday. Given IV cardizem bolus and IV gtt started. Converted to NSR last night. Start oral cardizem CD at 180 mg daily. HR in the 60's. He is a CHADS VASc=3. Anticoagulation with coumadin vs NOAC discussed. He declines coumadin therapy but agrees to NOAC. Known CKD. TTE this admit shows preserved EF, limited study. Full echo in 2013 showed no significant valvular disease. Eliquis sent to [facility] for velazquez check. Eliquis 47$ a month. I discussed with patient and he is agreeable. Cardiology will sign off. Please call with changes or questions. Out-pt f/u will be scheduled in 2 weeks. (2) Elevated troponin Current Visit: Yes Status: Acute Troponin 0.4, 0.28, 0.18 in the setting of respiratory failure; likely secondary to demand ischemia. Patient is chest pain free. No significant ECG changes noted. Flu positive, CXR concerning for PNA. Continue asa and statin. TTE shows preserved EF. (EF 55-60% per TTE 2016) Can consider ischemic evaluation in the outpatient setting once respiratory issues/ influenza resolved. Discussion w patient/family: The assessment and plan as outlined above was discussed with the patient and/or family members who expressed understanding and agreement. All questions were answered. Thank you for involving us in the care of your patient. Please call with any questions. Subjective Principal diagnosis: Elevated troponin, respiratory failure Interval history: Mr. Zaman states that he feels the same way he always does. He keeps his eyes closed during my exam and does not converse. Objective Vital Signs, Last 4 Hours Pulse Resp BP Pulse Ox 11/05/17 08:00 82 19 168/98 89 General: Conversant, No Apparent Distress HEENT: Atraumatic, Normocephaly, Mucus Membranes Moist Neck: No JVD, Normal carotid pulses Cardiac: Reg Rate and Rhythm, Normal S1 and S2, No Murmur Lungs: Other (tracheostomy intact. Lung sounds diminished.) Neuro: Alert and responsive, No focal deficits noted Abdomen: Soft, Non-Tender Skin: No rashes noted on visualized skin Musculoskeletal: No Chest Wall Tenderness Extremities: No Clubbing, No Cyanosis, No Edema, Normal Pulses, Other (knot noted on lft cho with mild left ankle swelling, no redness. says it is from osteomylitis history.) Results 11/05/17 03:59 11/05/17 03:59 Lab Results 11/04/17 11/04/17 11/04/17 12:21 12:21 16:36 WBC 8.4 Hgb 14.7 Hct 48.0 Plt Count 173 INR APTT Sodium Potassium Chloride Carbon Dioxide BUN Creatinine Glucose Calcium Total Bilirubin AST ALT Alkaline Phosphatase Troponin I 0.10 H* TSH 1.425 11/04/17 11/04/17 11/05/17 16:36 22:34 03:59 WBC 7.7 Hgb 14.7 Hct 47.1 Plt Count 177 INR 1.0 APTT 25.5 L D 90.9 H D Sodium Potassium Chloride Carbon Dioxide BUN Creatinine Glucose Calcium Total Bilirubin AST ALT Alkaline Phosphatase Troponin I TSH 11/05/17 11/05/17 03:59 03:59 WBC Hgb Hct Plt Count INR APTT 59.9 H Sodium 138 Potassium 4.3 Chloride 97 L Carbon Dioxide 34 H BUN 60 H Creatinine 1.62 H Glucose 179 H Calcium 8.6 Total Bilirubin 0.4 AST 33 ALT 76 H Alkaline Phosphatase 72 Troponin I TSH - Imaging and Cardiology Echo: report reviewed - EKG Interpretation EKG results cardiology: personally reviewed Consult Discharge Plan - Plan Referrals: Beverley Baum MD [Primary Care Provider] - Prescriptions: Apixaban [Eliquis] 5 mg PO BID #60 tablet
[2017-11-05] MEDS: predniSONE 20 MG TABLET PO SCH (10:28)
[2017-11-05] MEDS: Apixaban 5 MG TABLET PO SCH ×2 (10:28→22:02)
[2017-11-05] MEDS: Cefepime HCl 1,000 MG in Water for inj. (sterile) 10 ML IVP SCH ×2 (10:28→22:03)
[2017-11-05] MEDS: Budesonide/Formoterol 160/4.5 MDI IH SCH ×2 (10:37→21:57)
--- NOTE | 2017-11-05 17:08 | Electrocardiograph Report ---
[place] [address] Test Date: 2017-11-02 Pat Name: Star Zaman Department: 111 Room: [facility] Gender: M Primary Products Inspectors: [id number] : 1950 Requested By: Nithin Elias Order Number: [id number] Reading MD: Ole Dietrich Measurements Intervals [place] Rate: 74 P: 87 MS: 176 QRS: 16 QRSD: 93 T: 60 QT: 385 QTc: 413 Interpretive Statements SINUS RHYTHM WITH OCCASIONAL SUPRAVENTRICULAR PREMATURE COMPLEXES Electronically Signed On 11-05-2017 17:07:01 EST by Ole Dietrich
--- NOTE | 2017-11-05 19:35 | Electrocardiograph Report ---
[place] [address] Test Date: 2017-11-04 Pat Name: Star Zaman Department: 111 Room: 2N3 Gender: M Night Assistant: : 1950 Requested By: Jarrell Perez Order Number: [id number] Reading MD: Anna Dietrich Measurements Intervals [place] Rate: 133 P: CA: 0 QRS: 11 QRSD: 82 T: 58 QT: 284 QTc: 362 Interpretive Statements ATRIAL FIBRILLATION WITH RAPID VENTRICULAR RESPONSE ABNORMAL RHYTHM ECG Electronically Signed On 11-05-2017 19:33:16 EST by Anna Dietrich
--- NOTE | 2017-11-05 19:43 | Electrocardiograph Report ---
[place] [address] Test Date: 2017-11-04 Pat Name: Star Zaman Department: 111 Room: [facility] Gender: M Perfusionist: [id number] : 1950 Requested By: Nithin Elias Order Number: [id number] Reading MD: Anna Dietrich Measurements Intervals [place] Rate: 68 P: 16 ME: 175 QRS: 6 QRSD: 77 T: 48 QT: 375 QTc: 393 Interpretive Statements SINUS RHYTHM WITH OCCASIONAL SUPRAVENTRICULAR PREMATURE COMPLEXES Electronically Signed On 11-05-2017 19:41:37 EST by Anna Dietrich
[2017-11-06] MEDS: Ipratropium/Albuterol Neb 3 ML IH SCH ×3 (04:51→15:40)
--- NOTE | 2017-11-06 09:59 | Discharge Summary ---
<Niraj Paulson Eduardo - Last Filed: 11/06/17 11:39> Date of Encounter: 11/06/17 Time of Encounter: 09:52 - Discharge Diagnosis (1) Atrial fibrillation with RVR Priority: Primary Status: Acute (2) Pneumonia Priority: Primary Status: Suspected Qualifiers: Pneumonia type: due to other aerobic Gram-negative bacteria Laterality: right Lung location: lower lobe of lung Qualified Code(s): J15.6 - Pneumonia due to other Gram-negative bacteria (3) Influenza Priority: Primary Status: Acute (4) Acute and chronic respiratory failure Priority: Primary Status: Acute Qualifiers: Qualified Code(s): J96.20 - Acute and chronic respiratory failure, unspecified whether with hypoxia or hypercapnia (5) Diastolic heart failure Priority: Secondary Status: Chronic Qualifiers: Heart failure chronicity: chronic Qualified Code(s): I50.32 - Chronic diastolic (congestive) heart failure (6) Obesity hypoventilation syndrome Priority: Secondary Status: Chronic (7) Hypothyroidism Priority: Secondary Status: Chronic Qualifiers: Hypothyroidism type: acquired Qualified Code(s): E03.9 - Hypothyroidism, unspecified (8) NSTEMI (non-ST elevated myocardial infarction) Priority: Primary Status: Ruled-out (9) DVT prophylaxis Priority: Secondary Status: Acute - Discharge Medications Prescriptions: Apixaban [Eliquis] 5 mg PO BID #60 tablet Levofloxacin [Levaquin] 750 mg PO DAILY #2 tablet Home Medications: Albuterol Sulfate [Albuterol Inhaler] 2 puff IH Q4HR PRN 11/16/15 [History] Allopurinol [Zyloprim 300 MG] 300 mg PO DAILY 11/16/15 [History] Levothyroxine [Synthroid] 75 mcg PO 0630 11/16/15 [History] Potassium Chloride [K-Tab ER] 20 meq PO 6XD 11/16/15 [History] Spironolactone [Aldactone] 50 mg PO BID 11/16/15 [History] Furosemide [Lasix] 120 mg PO BID 08/19/17 [History] Omeprazole [PriLOSEC] 40 mg PO DAILY 08/19/17 [History] OxyCODONE/APAP 10/325 [Percocet 10/325 MG] 1 tab PO Q6H PRN #20 08/23/17 [Rx] Albuterol Neb [Proventil Neb] 2.5 mg IH Q6H PRN 11/01/17 [History] Budesonide/Formoterol 160/4.5 [Symbicort 160/4.5] 2 puff IH BIDR 11/01/17 [ History] Citalopram Hydrobromide [Celexa] 40 mg PO DAILY 11/01/17 [History] Insulin Glargine,Hum.rec.anlog [Toujeo Solostar] 100 units SQ BID 11/01/17 [ History] Magnesium Oxide [Mag-Ox] 400 mg PO DAILY 11/01/17 [History] Zolpidem [Ambien] 5 mg PO HS 11/01/17 [History] methylPREDNISolone [Medrol] 4 mg PO PER PKG DI 11/01/17 [History] Apixaban [Eliquis] 5 mg PO BID #60 tablet 11/04/17 [Rx] Levofloxacin [Levaquin] 750 mg PO DAILY #2 tablet 11/06/17 [Rx] Allergies/Adverse Reactions: 3 Allergy/AdvReac Type Severity Reaction Status Date / Time No Known Allergies Allergy Verified 08/19/17 14:08 Procedures/tests Complete & Pending: Procedures Performed prior 72 hours Category Date Time Status ECG 12 lead ECG [ECG] Routine Y 11/04/17 12:01 Completed EKG [ECG 12 lead ECG] [ECG] Routine Y 11/04/17 18:50 Completed Date of admission: 11/01/17 21:27 Primary care physician: Beverley Baum MD Consults: 11/02/17 10:27 Consult to Respiratory Therapy [CONS] Routine Reason for Consult: Bipap please Call Completed: Yes 11/04/17 10:18 Consult to Wound Care [CONS] Stat Reason for Consult: chronic stage III ulcer left heal Call Completed: Yes 11/04/17 12:41 Consult to Cardiology [CONS] Routine Comment: Consulting Provider: [facility] [place] Reason for Consult: new rapid a fib Call Completed: Yes Discharging clinician: Niraj Paulson Anticipated date of discharge: 11/06/17 - Patient Status Disposition: Home, Self-Care Condition: Fair Functional capacity at discharge: independent ambulation Overall status at discharge: patient is progressing back to baseline - Discharge Instructions Follow Up With: Frederick Aj, FLIGHT OPERATION COORDINATOR [Advanced Practice Nurse] - (appointment to be scheduled within 2weeks. If you do not receive call from office of appointment time. Please call to make appointment. ) Beverley Baum MD [Primary Care Provider] - 11/11/17 3:45 pm Additional Instructions: 1. Follow-up with your primary care provider in the next 3-5 days 2. Take all prescriptions as prescribed, any concerns or questions contact her primary care provider. 3. Return to the emergency department if: Worsening respiratory status, chest pain chest pressure or any other concerning medical symptoms or signs. 4. Continue to wear home oxygen at 2 L nasal cannula until follow-up with her PCP in the next 3-5 days for further evaluation. - Diet and Activity Activity: increase activity as tolerated Diet: advance to your usual diet Interval History: Mr. Zaman is a 67 year old male with a past medical history of obesity hypoventilation syndrome, COPD with tracheostomy not oxygen dependent, chronic kidney disease stage III, diabetes type 2 insulin-dependent, diastolic CHF, recent diagnosis of influenza presents to emergency department with worsening respiratory status. He is found to have right lower lobe pneumonia and increased oxygen requirements. He is placed on nasal cannula oxygen started on broad social antibiotic coverage and continue treatment for his influenza and isolation precautions. His respiratory status demonstrated mild improvement a blood gas performed on 11/02/2017 had pH 7.29, PCO2 85, PO2 92, bicarbonate 41 and oxygen saturation 95% on BiPAP. Continue to wean off significant oxygen requirements down to nasal oxygen at 2 L. His antibiotics were scaled back as his clinical picture continued to improve. Demonstrated significant improvement in his respiratory status and on evaluation on 11/06/2017 he was seen and evaluated patient bedside deemed stable for discharge home. He completed Tamiflu and was discharged with the remainder of the acquired pneumonia coverage with Levaquin. He was recommended to follow-up with his primary care provider in the next 3-5 days for reevaluation for which she agreed. Hospital course: Mr. Zaman is a 67 year old male - Time Spent with Patient Total time spent providing and/or coordinating discharge services: - Constitutional Vitals: Temp Pulse Resp BP Pulse Ox 97.2 F L 72 16 172/85 93 11/06/17 07:46 11/06/17 07:46 11/06/17 07:46 11/06/17 07:46 11/06/17 07:46 General appearance: Present: A&O X 3 <Jarrell Perez P - Last Filed: 11/06/17 15:18> Date of Encounter: 11/06/17 Procedures/tests Complete & Pending: Procedures Performed prior 72 hours Category Date Time Status ECG 12 lead ECG [ECG] Routine Y 11/04/17 12:01 Completed EKG [ECG 12 lead ECG] [ECG] Routine Y 11/04/17 18:50 Completed Date of admission: 11/01/17 21:27 Primary care physician: Beverley Baum MD Consults: 11/02/17 10:27 Consult to Respiratory Therapy [CONS] Routine Reason for Consult: Bipap please Call Completed: Yes 11/04/17 10:18 Consult to Wound Care [CONS] Stat Reason for Consult: chronic stage III ulcer left heal Call Completed: Yes 11/04/17 12:41 Consult to Cardiology [CONS] Routine Comment: Consulting Provider: Card[facility] [place] Reason for Consult: new rapid a fib Call Completed: Yes Hospital course: Mr. Zaman is a 67 year old male - Time Spent with Patient Total time spent providing and/or coordinating discharge services: - Constitutional Vitals: Temp Pulse Resp BP Pulse Ox 97.6 F 79 18 173/86 94 11/06/17 12:03 11/06/17 12:03 11/06/17 12:03 11/06/17 12:03 11/06/17 12:05 - Attending Attestation I examined this patient and my medical decision-making was reviewed with the Resident Physician. I agree with the documented findings, disposition and treatment plan as described except to the extent set forth below. This patient is known to have a chronic obstructive pulmonary disease. During the hospitalization his oxygen requirement was more than what was the home oxygen requirement which is 2-3 L/m. At the time of discharge, patient's oxygen requirement is back to his home oxygen requirement. Is a chronic stable state of his COPD.
[2017-11-06] MEDS: Insulin LISPRO 300 UNITS/3 ML VIAL SQ SCH ×2 (10:11→12:24)
[2017-11-06] MEDS: Diltiazem CD (24hr) 180 MG CAPSULE PO SCH (10:12)
[2017-11-06] MEDS: Magnesium Oxide 400 MG TABLET PO SCH (10:12)
[2017-11-06] MEDS: Furosemide 40 MG TABLET PO SCH (10:12)
[2017-11-06] MEDS: Aspirin Enteric Coated 81 MG Tablet PO SCH (10:12)
[2017-11-06] MEDS: Apixaban 5 MG TABLET PO SCH (10:12)
[2017-11-06] MEDS: predniSONE 20 MG TABLET PO SCH (10:13)
[2017-11-06] MEDS: Cefepime HCl 1,000 MG in Water for inj. (sterile) 10 ML IVP SCH (10:17)
[2017-11-06] MEDS: Budesonide/Formoterol 160/4.5 MDI IH SCH (11:11)
--- NOTE | 2017-11-06 11:50 | Physician Discharge Referral ---
Addendum entered and electronically signed by Heriberto Rasmussen DO 11/06/17 14:10: Patient will also require wound dressing care. He has a left posterior heel measuring 2cm x 1cm. Wound Care: healed surgical wound to the left posterior heel - pad with Allevyn Multisite Foam dressing as per policy - change daily and assess site Original Note: <Niraj Paulson - Last Filed: 11/06/17 11:49> Home Health/Hosp Referral Info Transfer to: Home Health Provider in Charge Post Discharge: PCP - Diagnosis (1) Atrial fibrillation with RVR Priority: Primary Status: Acute (2) Pneumonia Priority: Primary Status: Suspected (3) Influenza Priority: Primary Status: Acute (4) Acute and chronic respiratory failure Priority: Primary Status: Acute (5) Diastolic heart failure Priority: Secondary Status: Chronic (6) Obesity hypoventilation syndrome Priority: Secondary Status: Chronic (7) Hypothyroidism Priority: Secondary Status: Chronic (8) NSTEMI (non-ST elevated myocardial infarction) Priority: Primary Status: Ruled-out (9) DVT prophylaxis Priority: Secondary Status: Acute - Respiratory Orders Oxygen / L per min Smoking Cessation: Smoking cessation has been advised. For more information, call the [place] Tobacco Quit Line at 1-870-WKFZ-NOW. - Diet/Nutrition Diet/Nutrition Orders: Regular - Activity Activity Orders: Ambulate - Services Needed Following services are medically necessary services: Nursing - Transfer Medications Prescriptions: Apixaban [Eliquis] 5 mg PO BID #60 tablet Levofloxacin [Levaquin] 750 mg PO DAILY #2 tablet Home Medications: Albuterol Sulfate [Albuterol Inhaler] 2 puff IH Q4HR PRN 11/16/15 [History] Allopurinol [Zyloprim 300 MG] 300 mg PO DAILY 11/16/15 [History] Levothyroxine [Synthroid] 75 mcg PO 0630 11/16/15 [History] Potassium Chloride [K-Tab ER] 20 meq PO 6XD 11/16/15 [History] Spironolactone [Aldactone] 50 mg PO BID 11/16/15 [History] Furosemide [Lasix] 120 mg PO BID 08/19/17 [History] Omeprazole [PriLOSEC] 40 mg PO DAILY 08/19/17 [History] OxyCODONE/APAP 10/325 [Percocet 10/325 MG] 1 tab PO Q6H PRN #20 08/23/17 [Rx] Albuterol Neb [Proventil Neb] 2.5 mg IH Q6H PRN 11/01/17 [History] Budesonide/Formoterol 160/4.5 [Symbicort 160/4.5] 2 puff IH BIDR 11/01/17 [ History] Citalopram Hydrobromide [Celexa] 40 mg PO DAILY 11/01/17 [History] Insulin Glargine,Hum.rec.anlog [Toujeo Solostar] 100 units SQ BID 11/01/17 [ History] Magnesium Oxide [Mag-Ox] 400 mg PO DAILY 11/01/17 [History] Zolpidem [Ambien] 5 mg PO HS 11/01/17 [History] methylPREDNISolone [Medrol] 4 mg PO PER PKG DI 11/01/17 [History] Apixaban [Eliquis] 5 mg PO BID #60 tablet 11/04/17 [Rx] Levofloxacin [Levaquin] 750 mg PO DAILY #2 tablet 11/06/17 [Rx] Allergies/Adverse Reactions: 3 Allergy/AdvReac Type Severity Reaction Status Date / Time No Known Allergies Allergy Verified 08/19/17 14:08 Certification: Further, I certify that my clinical findings support that this patient is homebound (i.e. absences from home require considerable and taxing effort and are for medical reasons or jewish services or infrequently or short duration when for other reasons) because: Homebound Reason: Patient requires assistance of a person or device to safely leave home, Severity of cardiac or pulmonary status limits activity tolerance Attestation: My signature below is to certify that this patient is under my care and that I, or nurse practitioner, or a physician's executive staff assistant working with me, has a face-to -face encounter with this patient. <Jarrell Perez P - Last Filed: 11/06/17 15:18> - Respiratory Orders Smoking Cessation: Smoking cessation has been advised. For more information, call the [place] Tobacco Quit Line at 1-511-BPRJ-NOW. Certification: Further, I certify that my clinical findings support that this patient is homebound (i.e. absences from home require considerable and taxing effort and are for medical reasons or jewish services or infrequently or short duration when for other reasons) because: Attestation: My signature below is to certify that this patient is under my care and that I, or nurse practitioner, or a physician's executive staff assistant working with me, has a face-to -face encounter with this patient.
[2017-11-06 12:05] VITALS: BP 173/86
== END 2017-11-06 17:54 | disposition home or self-care (01) | DRG 177 ==
LOC: 2NENU 17:45 → EMEROO 17:45 → SUATTDRO 21:27 → 2NENU 21:49
PROVIDERS: ADMIT Internal Medicine; ATTEND Internal Medicine

== ENCOUNTER 2018-02-12 00:10 | Inpatient (IN) ==
[2018-02-12] MEDS ORDERED: Ipratropium/Albuterol Neb 3 ML IH ONE (00:24)
[2018-02-12] MEDS ORDERED: methylPREDNISolone 125 MG/2 ML VIAL IVP ONE (00:24)
[2018-02-12 00:36] LABS: ABG Base Excess 13 mEq/L (-2 to 3); ABG HCO3 43 mEq/L (21-27); ABG Oxygen Saturation 90 % (95-98); ABG PCO2 74 mmHg (35-45); ABG PH 7.37 pH Units (7.32-7.45); ABG PO2 65 mmHg (85-104); ABG TCO2 45 mEq/L (20-26)
[2018-02-12 00:37] LABS: Basophils # 0.1 K/mcL (0.0-0.2); Basophils % 0.6 %; Eosinophils # 0.5 K/mcL (0.0-0.6); Eosinophils % 3.3 %; Hematocrit 40.9 % (37.5-50.1); Hemoglobin 12.9 g/dL (12.9-16.9); Immature Granulocytes % 0.6 % (0-4); Lymphocytes # 1.7 K/mcL (0.6-4.6); Lymphocytes % 12.2 %; Mean Corpuscular HGB Conc 31.5 g/dL (31.6-35.5); Mean Corpuscular Hemoglobin 30.7 pg (28.0-33.3); Mean Corpuscular Volume 97.4 fL (83.0-100.0); Mean Platelet Volume 9.8 fL (9.4-12.4); Monocytes # 0.7 K/mcL (0.0-1.3); Monocytes % 5.5 %; Neutrophils # 10.5 K/mcL (1.6-8.9); Platelet Count 213 K/mcL (140-400); Red Cell Distribution Width 15.8 % (11.5-14.5); Segmented Neutrophils % 77.8 %
[2018-02-12] MEDS ORDERED: Ipratropium/Albuterol Neb 3 ML ONE (00:46)
[2018-02-12 01:01] LABS: Blood Urea Nitrogen 56 mg/dL (8-23); Carbon Dioxide 35 mEq/L (23-29); Chloride 95 mEq/L (98-107); Potassium 4.7 mEq/L (3.5-5.1); Sodium 140 mEq/L (136-145)
[2018-02-12 01:02] LABS: BUN/Creatinine Ratio 30 (6-26); Calcium 9.7 mg/dL (8.6-10.3); Glucose 211 mg/dL (70-105); Osmolality,Calculated 312 (280-300); eGFR For African Americans 44 (> 60); eGFR For Non-African Americans 36 (> 60)
[2018-02-12 01:03] LABS: Troponin I < 0.03 ng/mL (< 0.04)
--- NOTE | 2018-02-12 01:14 | Emergency Department Note ---
Disposition Clinical Impression: Hypoxia, Hypercapnia, COPD exacerbation, Bronchitis Disposition: Admitted As Inpatient Condition: Good SOB HPI - General Chief Complaint: ED Shortness of Breath/Dyspnea Stated Complaint: trouble breathing Time Seen by Provider: 02/12/18 00:16 Source: family Mode of arrival: ambulatory Limitations: no limitations Nursing Notes Reviewed: Yes Vital Signs Reviewed: Yes - History of Present Illness Patient presents for evaluation of shortness of breath. Initial pulse ox of 83% . Patient has history of COPD and does have a trach. Patient is on 2 L of oxygen at home. Patient does not use any positive pressure ventilation at home. The patient states that he has had increased trach secretions for the last several weeks. Patient became short of breath today and did not significant improve with at-home treatments. is at bedside and states that he is trached secondary to his high CO2 level. Patient has associated chills and generalized fatigue. - Related Data Home Medications Medication Instructions Recorded Confirmed Albuterol Sulfate [Albuterol 2 puff IH Q4HR PRN 11/16/15 02/12/18 Inhaler] Allopurinol [Zyloprim 300 MG] 300 mg PO DAILY 11/16/15 02/12/18 Levothyroxine [Synthroid] 75 mcg PO 0630 11/16/15 02/12/18 Potassium Chloride [K-Tab ER] 20 meq PO 6XD 11/16/15 02/12/18 Spironolactone [Aldactone] 50 mg PO BID 11/16/15 02/12/18 Furosemide [Lasix] 120 mg PO BID 08/19/17 02/12/18 Albuterol Neb [Proventil Neb] 2.5 mg IH Q6H PRN 11/01/17 02/12/18 Budesonide/Formoterol 160/4.5 2 puff IH BIDR 11/01/17 02/12/18 [Symbicort 160/4.5] Citalopram Hydrobromide [Celexa] 40 mg PO DAILY 11/01/17 02/12/18 Insulin Glargine,Hum.rec.anlog 100 units SQ BID 11/01/17 02/12/18 [Sage Perez] Magnesium Oxide [Mag-Ox] 400 mg PO DAILY 11/01/17 02/12/18 Zolpidem [Ambien] 5 mg PO HS 11/01/17 02/12/18 Aspirin 81 mg PO DAILY 02/12/18 02/12/18 Previous Rx's Medication Instructions Recorded OxyCODONE/APAP 10/325 [Percocet 1 tab PO Q6H PRN #20 08/23/17 10/325 MG] Diltiazem HCl [Diltiazem 24Hr Cd] 180 mg PO DAILY #30 cap 11/06/17 Allergies Allergy/AdvReac Type Severity Reaction Status Date / Time No Known Allergies Allergy Verified 02/12/18 00:14 Review of Systems: CONSTITUTIONAL: Chills, weakness, fatigue HEENT: Eyes: No visual changes. Ears, Nose, Throat: No hearing loss, difficulty talking or unable to swallow. SKIN: No rash or itching. CARDIOVASCULAR: No chest pain, chest pressure or chest discomfort. No palpitations or edema. RESPIRATORY: Shortness of breath with increased trach secretions. GASTROINTESTINAL: No anorexia, nausea, vomiting or diarrhea. No abdominal pain or blood. GENITOURINARY: No burning on urination or hematuria. NEUROLOGICAL: No headache, dizziness, syncope, paralysis, ataxia, numbness or tingling in the extremities. No change in bowel or bladder control. MUSCULOSKELETAL: No muscle pain, back pain, joint pain or stiffness. Past Medical History - Past Medical History Medical history: Reports: arthritis, CHF, COPD, diabetes, GERD, hyperlipidemia, hypertension, thyroid disease, other Surgical history: Reports: orthopedic, other Psychiatric history: Reports: no psych history - Social History Smoking Status: Former smoker Smokeless Tobacco Status: No Alcohol use: Reports: none Drug use: Reports: none Physical Exam General: tachypnic; In moderate respiratory distress Head: Normocephalic Atraumatic Eyes: PERRL, EOMI ENT: Airway patent, no stridor Neck: supple, no meningismus Chest: Decreased air movement diffusely. Mild wheezing. Rhonchi in the right lower lobe. Cardiac: Regular rate and rhythm, no murmurs, rubs or gallops Abdomen: soft, nontender, nondistended; no guarding, rebound, or tenderness to percussion Musculoskeletal: Calves symmetric, nontender, no palpable cord Skin: No rash, normal skin tone Neuro: Alert and Oriented to person, place, and time; No focal deficit, CN 2-12 symmetric and intact - General General appearance: alert Course Course Narrative: Patient with metal trach. Uncuffed. [place] placed on BiPAP. Patient given DuoNeb's. Patient's symptoms have been improving while in the emergency department. Will admit for further management. Antibiotics given. - Consultations Consultation #1: Discussed with hospitalist. Patient does require ventilation through the trach we are happy to place a cuff tube. Patient does not currently require intubation or ventilation. Patient is improving with BiPAP. Patient has been reevaluated and is awake alert and oriented. Patient's most recent admission was in early November. Antibiotics were discussed with the hospitalist. Ceftriaxone and azithromycin started. Vital Signs Temperature 98.4 F 02/12/18 00:12 Pulse Rate 82 02/12/18 00:12 Respiratory Rate 26 02/12/18 00:12 Blood Pressure 111/77 02/12/18 00:12 O2 Sat by Pulse Oximetry 83 02/12/18 00:12 Temperature 98.4 F 02/12/18 00:12 Pulse Rate 72 02/12/18 03:32 Respiratory Rate 21 02/12/18 02:56 Blood Pressure 155/54 02/12/18 03:32 O2 Sat by Pulse Oximetry 95 02/12/18 03:32 Oxygen Delivery Oxygen Delivery Bipap Shortness of Breath/Dyspnea - Medical Records Medical records reviewed: Yes I reviewed the patient's medical records. - Lab Data Lab results reviewed: Yes I reviewed the patient's lab results. Result diagrams: 02/12/18 00:31 02/12/18 00:31 Lab Results 02/12/18 02/12/18 02/12/18 Range/Units 00:31 00:31 00:31 WBC 13.5 H (4.3-11.1) K/mcL RBC 4.20 (4.19-5.50) M/mcL Hgb 12.9 (12.9-16.9) g/dL Hct 40.9 (37.5-50.1) % MCV 97.4 (83.0-100.0) fL MCH 30.7 (28.0-33.3) pg MCHC 31.5 L (31.6-35.5) g/dL RDW 15.8 H (11.5-14.5) % Plt Count 213 (140-400) K/mcL MPV 9.8 (9.4-12.4) fL Immature Gran % 0.6 (0-4) % Seg Neutrophils % 77.8 % Lymphocytes % 12.2 % Monocytes % 5.5 % Eosinophils % 3.3 % Basophils % 0.6 % Neutrophils # 10.5 H (1.6-8.9) K/mcL Lymphocytes # 1.7 (0.6-4.6) K/mcL Monocytes # 0.7 (0.0-1.3) K/mcL Eosinophils # 0.5 (0.0-0.6) K/mcL Basophils # 0.1 (0.0-0.2) K/mcL Sample Site ABG pH (7.32-7.45) pH Units ABG pCO2 (35-45) mmHg ABG pO2 (85-104) mmHg ABG HCO3 (21-27) mEq/L ABG Total CO2 (20-26) mEq/L ABG O2 Saturation (95-98) % ABG Base Excess (-2 to 3) mEq/L Miguel Test O2 Delivery Device Inspired O2 (1-15=lpm [id number]=%) Sodium 140 (136-145) mEq/L Potassium 4.7 (3.5-5.1) mEq/L Chloride 95 L (98-107) mEq/L Carbon Dioxide 35 H (23-29) mEq/L BUN 56 H (8-23) mg/dL Creatinine 1.87 H (0.70-1.30) mg/dL Est GFR ( Amer) 44 L (> 60) Est GFR (Non-Af Amer) 36 L (> 60) BUN/Creatinine Ratio 30 H (6-26) Glucose 211 H (70-105) mg/dL Calculated Osmolality 312 H (280-300) Lactic Acid 1.6 (0.5-2.2) mmol/L Calcium 9.7 (8.6-10.3) mg/dL Troponin I < 0.03 (< 0.04) ng/mL B-Natriuretic Peptide (Less than 100) pg/mL 02/12/18 02/12/18 Range/Units 00:31 00:32 WBC (4.3-11.1) K/mcL RBC (4.19-5.50) M/mcL Hgb (12.9-16.9) g/dL Hct (37.5-50.1) % MCV (83.0-100.0) fL MCH (28.0-33.3) pg MCHC (31.6-35.5) g/dL RDW (11.5-14.5) % Plt Count (140-400) K/mcL MPV (9.4-12.4) fL Immature Gran % (0-4) % Seg Neutrophils % % Lymphocytes % % Monocytes % % Eosinophils % % Basophils % % Neutrophils # (1.6-8.9) K/mcL Lymphocytes # (0.6-4.6) K/mcL Monocytes # (0.0-1.3) K/mcL Eosinophils # (0.0-0.6) K/mcL Basophils # (0.0-0.2) K/mcL Sample Site L Radial ABG pH 7.37 (7.32-7.45) pH Units ABG pCO2 74 H* (35-45) mmHg ABG pO2 65 L (85-104) mmHg ABG HCO3 43 H (21-27) mEq/L ABG Total CO2 45 H (20-26) mEq/L ABG O2 Saturation 90 L (95-98) % ABG Base Excess 13 H (-2 to 3) mEq/L Miguel Test Positive O2 Delivery Device Cannula Inspired O2 4.0 (1-15=lpm [id number]=%) Sodium (136-145) mEq/L Potassium (3.5-5.1) mEq/L Chloride (98-107) mEq/L Carbon Dioxide (23-29) mEq/L BUN (8-23) mg/dL Creatinine (0.70-1.30) mg/dL Est GFR ( Amer) (> 60) Est GFR (Non-Af Amer) (> 60) BUN/Creatinine Ratio (6-26) Glucose (70-105) mg/dL Calculated Osmolality (280-300) Lactic Acid (0.5-2.2) mmol/L Calcium (8.6-10.3) mg/dL Troponin I (< 0.04) ng/mL B-Natriuretic Peptide 103 H (Less than 100) pg/mL - Radiology Data Radiology results reviewed: Yes I reviewed the patient's radiology results. - EKG Data EKG attestation: Yes I reviewed and interpreted this EKG. EKG results narrative: EKG shows sinus rhythm with ventricular rate of 81. [place] 192. QRS 82. QTC 404. No significant elevations or depressions. Attestation Statement - Attestation Attestation: I examined this patient and my medical decision-making was reviewed with the Resident Physician. I agree with the documented findings, disposition and treatment plan as described except to the extent set forth below. Findings consistent with respiratory failure. Patient does have tracheostomy in place. We will Trach in place patient on BiPAP for hypercapnia. I spent greater than 35 minutes of critical care time resuscitating this acutely ill patient suffering from hypercapnic respiratory failure. This was excluding billable procedures.
[2018-02-12] MEDS ORDERED: cefTRIAXone 1,000 MG in Water for inj. (sterile) 20 ML 10 ML IVP ONE (02:43)
[2018-02-12] MEDS ORDERED: Azithromycin 500 MG in D5% in Water 250 ML IVPB ONE (02:44)
[2018-02-12] MEDS ORDERED: Acetaminophen 325 MG TABLET PO PRN (03:08)
[2018-02-12] MEDS ORDERED: Naloxone 0.4 MG/ML INJ IVP PRN (03:08)
[2018-02-12] MEDS ORDERED: Ipratropium/Albuterol Neb 3 ML IH PRN (03:14)
[2018-02-12] MEDS ORDERED: D5% in Water 1,000 ML IVC PRN (03:18)
[2018-02-12] MEDS ORDERED: *HR* Dextrose 50 % in Water (Syg) 50 ML SYRINGE IVP PRN (03:18)
[2018-02-12] MEDS ORDERED: Dextrose Gel 15 GM/37.5 ML TUBE PO PRN ×2 (03:18)
--- NOTE | 2018-02-12 03:29 | Internal Med History&Physical ---
Date of Encounter: 02/12/18 Time of Encounter: 02:30 Internal Medicine - H&P: HPI Chief complaint: Shortness of breath History of present illness: Mr. Zaman is a 67 year old male presented to ER for increased shortness of breath. Past medical history is significant for COPD with hypercapnia end up with tracheostomy for diabetes, hypertension, diastolic CHF, paroxysmal A. fib. Patient is on BiPAP and sleepy. History obtained from patient's daughter. Patient has COPD with chronic hypercapnia, he did tracheostomy and use tracheostomy during night but breathing by himself during daytime by capping the tracheostomy tube. Since today, patient is more sleepy, with decreased oxygen saturation and increased mucus secretion from tracheostomy tube. Patient denies a fever, chest pain, nausea, or vomiting. In the emergency room , he was found bilateral wheezes/rhonchi. Patient was treated as COPD exacerbation with antibiotic, steroid, and bronchodilator. He was also placed on BiPAP with capping his tracheostomy tube. After treatment, patient's condition has slightly improved. Patient was admitted for COPD exacerbation. Past Med Surg Social Fam HX - Past Medical History Medical history: arthritis, CHF, COPD, diabetes, GERD, hyperlipidemia, hypertension, thyroid disease, other Psychiatric history: no psych history - Past Surgical History Surgical History: orthopedic, other - Social History Smoking Status: Former smoker Smokeless Tobacco Status: No Alcohol use: none Drug use: none - Family History Mother Living Status: Hx Family Cancer: Yes (Leukemia) Hx Family Endocrine Disorder: Yes (DM) Father Living Status: Hx Family Cancer: Yes (Colon) Internal Medicine - H&P: Meds Albuterol Sulfate [Albuterol Inhaler] 2 puff IH Q4HR PRN 11/16/15 [History] Allopurinol [Zyloprim 300 MG] 300 mg PO DAILY 11/16/15 [History] Levothyroxine [Synthroid] 75 mcg PO 0630 11/16/15 [History] Potassium Chloride [K-Tab ER] 20 meq PO 6XD 11/16/15 [History] Spironolactone [Aldactone] 50 mg PO BID 11/16/15 [History] Furosemide [Lasix] 120 mg PO BID 08/19/17 [History] Omeprazole [PriLOSEC] 40 mg PO DAILY 08/19/17 [History] OxyCODONE/APAP 10/325 [Percocet 10/325 MG] 1 tab PO Q6H PRN #20 08/23/17 [Rx] Albuterol Neb [Proventil Neb] 2.5 mg IH Q6H PRN 11/01/17 [History] Budesonide/Formoterol 160/4.5 [Symbicort 160/4.5] 2 puff IH BIDR 11/01/17 [ History] Citalopram Hydrobromide [Celexa] 40 mg PO DAILY 11/01/17 [History] Insulin Glargine,Hum.rec.anlog [Toujeo Solostar] 100 units SQ BID 11/01/17 [ History] Magnesium Oxide [Mag-Ox] 400 mg PO DAILY 11/01/17 [History] Zolpidem [Ambien] 5 mg PO HS 11/01/17 [History] Apixaban [Eliquis] 5 mg PO BID #60 tablet 11/04/17 [Rx] Diltiazem HCl [Diltiazem 24Hr Cd] 180 mg PO DAILY #30 cap 11/06/17 [Rx] Levofloxacin [Levaquin] 750 mg PO DAILY #2 tablet 11/06/17 [Rx] predniSONE [PredniSONE] 40 mg PO DAILY 3 Days #6 tablet 11/06/17 [Rx] 3 Allergy/AdvReac Type Severity Reaction Status Date / Time No Known Allergies Allergy Verified 02/12/18 00:14 All Systems PM: A 10-system review of systems was performed and is negative for pertinent findings except as documented above in the HPI. - Constitutional Vitals: Temp Pulse Resp BP Pulse Ox 98.4 F 77 21 143/53 95 02/12/18 00:12 02/12/18 00:16 02/12/18 02:56 02/12/18 00:16 02/12/18 02:56 General appearance: Present: mild distress Exam: Patient opening eyes on verbal stimulation - Head Head exam: Present: atraumatic, normocephalic - Eye Eye exam: Present: PERRL, conjuntiva pink, sclera anicteric Pupils: Present: PERRL - Neck Neck exam general surgery: Present: supple, trachea midline. Absent: lymphadenopathy - Respiratory Respiratory exam: Present: CTAB, rhonchi, wheezes (Diffused wheezes bilaterally) . Absent: accessory muscle use, rales - Cardiovascular Cardiovascular exam: Present: RRR, +S1, +S2. Absent: diastolic murmur, gallop, rubs, systolic murmur - GI/Abdominal GI/Abdominal exam: Present: normal bowel sounds, soft, no peritoneal signs. Absent: distended, tenderness - Extremities Exam Extremities exam: Present: pedal edema (Mild pedal edema bilaterally), warm, radial pulses palpable and symmetrical. Absent: calf tenderness, cyanotic - Neurological Exam Neurological exam: Present: CN II-XII intact, oriented X3, no focal deficits. Absent: pronater drift, facial droop, speech deficit - Skin Skin exam: Present: dry, intact Internal Med - H&P Results - Labs CBC & Chem 7: 02/12/18 00:31 02/12/18 00:31 - Assessment and plan (1) COPD exacerbation Current Visit: Yes Status: Acute Assessment and plan: Patient has history of COPD. Presented with increased shortness of breath and bilateral wheezing. Consider COPD exacerbation. - Place patient on antibiotic, steroid, and bronchodilator - BiPAP supportive treatment at this point - Closely monitor patient (2) Hypercapnia Current Visit: Yes Status: Acute Assessment and plan: Patient has chronic hypercapnia. He was placed on tracheostomy for quite long time. Place patient on BiPAP at this point. Closely monitor patient. (3) Acute and chronic respiratory failure Current Visit: No Status: Acute Assessment and plan: Management as above Qualifiers: Qualified Code(s): J96.20 - Acute and chronic respiratory failure, unspecified whether with hypoxia or hypercapnia (4) Atrial fibrillation Current Visit: No Status: Acute Assessment and plan: Patient has a history of paroxysmal A. fib. Right now sinus rhythm. Patient was placed on Eliquis previously. He stopped taking Eliquis because of hand hematoma. He is taking baby aspirin at home now, we will continue. Qualifiers: Atrial fibrillation type: paroxysmal Qualified Code(s): I48.0 - Paroxysmal atrial fibrillation (5) DVT prophylaxis Current Visit: No Status: Acute Assessment and plan: Heparin subcutaneously (6) Diabetes mellitus Current Visit: No Status: Chronic Assessment and plan: Place patient on basal and sliding scale insulin. 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
[2018-02-12] MEDS: Ipratropium/Albuterol Neb 3 ML IH SCH ×4 (04:22→22:57)
[2018-02-12] MEDS: methylPREDNISolone 125 MG/2 ML VIAL IVP SCH ×4 (05:12→23:08)
[2018-02-12] MEDS: *HR* Heparin 5,000 UNIT/ML VIAL SQ SCH ×2 (05:16→16:57)
[2018-02-12 05:41] LABS: ABG Base Excess 12 mEq/L (-2 to 3); ABG HCO3 41 mEq/L (21-27); ABG Oxygen Saturation 89 % (95-98); ABG PCO2 76 mmHg (35-45); ABG PH 7.34 pH Units (7.32-7.45); ABG PO2 64 mmHg (85-104); ABG TCO2 43 mEq/L (20-26)
[2018-02-12] MEDS: Insulin LISPRO 300 UNITS/3 ML VIAL SQ SCH ×3 (09:54→17:05)
[2018-02-12] MEDS: Aspirin Enteric Coated 81 MG Tablet PO SCH (10:30)
[2018-02-12] MEDS: Budesonide/Formoterol 160/4.5 MDI IH SCH ×2 (11:00→22:57)
[2018-02-12] MEDS: Insulin DETEMIR 100 UNIT/ML X5UNITS SQ SCH ×2 (12:35→21:54)
--- NOTE | 2018-02-12 14:54 | Internal Med Progress Note ---
Date of Encounter: 02/12/18 Time of Encounter: 14:51 - Assessment and plan (1) Acute and chronic respiratory failure Current Visit: No Status: Acute Assessment and plan: Acute on chronic hypoxic hypercapnic respiratory failure secondary to acute COPD exacerbation due to acute bacterial bronchitis Continue Rocephin and may discontinue azithromycin Continue BiPAP, Solu-Medrol, oxygen therapy DuoNeb nebs History of diastolic CHF, resume Lasix, takes 120 mA twice a day at home Qualifiers: Qualified Code(s): J96.20 - Acute and chronic respiratory failure, unspecified whether with hypoxia or hypercapnia (2) Atrial fibrillation Current Visit: No Status: Acute Assessment and plan: history of paroxysmal A. fib. Right now sinus rhythm. He stopped taking Eliquis because of hand hematoma. May resume Eliquis Was taking baby aspirin at home Qualifiers: Atrial fibrillation type: paroxysmal Qualified Code(s): I48.0 - Paroxysmal atrial fibrillation (3) Hypercapnia Current Visit: Yes Status: Acute Assessment and plan: Patient has chronic hypercapnia. He was placed on tracheostomy for quite long time. BiPAP for now. 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 Diabetes mellitus complication status: with kidney complications Diabetes mellitus complication detail: with chronic kidney disease Chronic kidney disease stage: stage 3 (moderate) Qualified Code(s): E11.22 - Type 2 diabetes mellitus with diabetic chronic kidney disease; N18.3 - Chronic kidney disease, stage 3 (moderate); N18.3 - Chronic kidney disease, stage 3 (moderate); 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; Z79.4 - [facility] (current) use of insulin; 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; 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 - Time Spent With Patient Total time spent is greater than 50% in coordination of care (as documented) at patient's floor/unit and/or counseling patient: - Subjective Interval history: very somnolent, following simple commands, does not appear to be in distress - Constitutional Vitals: Temp Pulse Resp BP Pulse Ox 98.6 F 70 20 157/61 95 02/12/18 11:05 02/12/18 12:41 02/12/18 12:41 02/12/18 11:05 02/12/18 12:41 General appearance: Present: A&O X 2, mild distress - Head Head exam: Present: atraumatic, normocephalic - Eye Eye exam: Present: PERRL, conjuntiva pink, sclera anicteric Pupils: Present: PERRL - Neck Neck exam general surgery: Present: supple, trachea midline. Absent: lymphadenopathy - Respiratory Respiratory exam: Present: decreased breath sounds, CTAB, wheezes (Mild diffuse wheezing). Absent: accessory muscle use, rales, rhonchi Additional comments: Tracheostomy in place, using BiPAP - Cardiovascular Cardiovascular exam: Present: RRR, +S1, +S2. Absent: diastolic murmur, gallop, rubs, systolic murmur - GI/Abdominal GI/Abdominal exam: Present: normal bowel sounds, soft, no peritoneal signs. Absent: distended, tenderness - Extremities Exam Extremities exam: Present: warm, radial pulses palpable and symmetrical. Absent : calf tenderness, cyanotic, pedal edema - Neurological Exam Neurological exam: Present: CN II-XII intact, oriented X3, no focal deficits. Absent: pronater drift, facial droop, speech deficit - Skin Skin exam: Present: dry, intact Internal Medicine: Result - Labs CBC & Chem 7: 02/12/18 00:31 02/12/18 00:31 - ABG Interpretation ABG results: ABG ABG pH 7.34 pH Units (7.32-7.45) 02/12/18 05:33 ABG pCO2 76 mmHg (35-45) H* 02/12/18 05:33 ABG pO2 64 mmHg (85-104) L 02/12/18 05:33 ABG O2 Saturation 89 % (95-98) L 02/12/18 05:33 Consult Discharge Plan - Plan Referrals: Beverley Baum MD [Primary Care Provider] - 02/20/18 3:45 pm ()
[2018-02-12] MEDS: Diltiazem CD (24hr) 180 MG CAPSULE PO SCH (17:13)
[2018-02-12] MEDS: Furosemide 20 MG/2 ML VIAL IVP SCH (18:55)
[2018-02-12] MEDS ORDERED: Insulin LISPRO 300 UNITS/3 ML VIAL SQ SCH (21:00)
[2018-02-12] MEDS: Apixaban 5 MG TABLET PO SCH (21:56)
[2018-02-12] MEDS ORDERED: Melatonin 3 MG TABLET PO ONE (22:32)
[2018-02-12] MEDS ORDERED: Melatonin 3 MG TABLET PO PRN (22:47)
[2018-02-13] MEDS: Ipratropium/Albuterol Neb 3 ML IH SCH ×4 (03:45→22:17)
[2018-02-13] MEDS ORDERED: Azithromycin 500 MG in D5% in Water 250 ML IVPB SCH (04:00)
[2018-02-13] MEDS: cefTRIAXone 1,000 MG in Water for inj. (sterile) 20 ML 10 ML IVPB SCH (04:00)
--- NOTE | 2018-02-13 05:30 | Electrocardiograph Report ---
[place] [id number] Test Date: 2018-02-12 Pat Name: Star Zaman Department: 102 Room: 09 Gender: M Bad Credit Collector: [place] : 1950 Requested By: [id number] Order Number: [id number] Reading MD: Bob Crandall Measurements Intervals [place] Rate: 81 P: 30 [place]: 192 QRS: 0 QRSD: 82 T: 64 QT: 367 QTc: 404 Interpretive Statements SINUS RHYTHM WITH SINUS ARRHYTHMIA Electronically Signed On 02-13-2018 5:29:07 EDT by Bob Crandall
[2018-02-13 06:07] LABS: Basophils % 0.1 %; Hematocrit 38.3 % (37.5-50.1); Immature Granulocytes % 1.2 % (0-4); Immature Platelets 3.5 % (1.1-6.1); Lymphocytes # 0.6 K/mcL (0.6-4.6); Lymphocytes % 3.5 %; Mean Corpuscular HGB Conc 31.3 g/dL (31.6-35.5); Mean Corpuscular Hemoglobin 29.7 pg (28.0-33.3); Mean Corpuscular Volume 94.8 fL (83.0-100.0); Mean Platelet Volume 10.3 fL (9.4-12.4); Monocytes # 0.2 K/mcL (0.0-1.3); Monocytes % 1.2 %; Neutrophils # 16.9 K/mcL (1.6-8.9); Platelet Count 212 K/mcL (140-400); Red Blood Count 4.04 M/mcL (4.19-5.50); Red Cell Distribution Width 15.4 % (11.5-14.5)
[2018-02-13 06:10] LABS: Calcium 9.5 mg/dL (8.6-10.3); Potassium 5.1 mEq/L (3.5-5.1)
[2018-02-13] MEDS: methylPREDNISolone 125 MG/2 ML VIAL IVP SCH ×4 (06:47→20:23)
[2018-02-13] MEDS: *HR* Heparin 5,000 UNIT/ML VIAL SQ SCH ×2 (06:47→17:03)
[2018-02-13] MEDS: Aspirin 81 MG TAB.CHEW PO SCH (07:52)
[2018-02-13] MEDS: Insulin LISPRO 300 UNITS/3 ML VIAL SQ SCH ×4 (07:53→17:02)
[2018-02-13] MEDS: Insulin DETEMIR 100 UNIT/ML X5UNITS SQ SCH ×2 (07:53→20:25)
[2018-02-13] MEDS: Furosemide 20 MG/2 ML VIAL IVP SCH ×2 (07:53→16:57)
[2018-02-13] MEDS: Diltiazem CD (24hr) 180 MG CAPSULE PO SCH (07:53)
[2018-02-13] MEDS: Apixaban 5 MG TABLET PO SCH (07:54)
[2018-02-13] MEDS: Aspirin Enteric Coated 81 MG Tablet PO SCH (07:54)
[2018-02-13] MEDS: Budesonide/Formoterol 160/4.5 MDI IH SCH ×2 (10:01→22:17)
[2018-02-13] MEDS ORDERED: Insulin LISPRO 300 UNITS/3 ML VIAL SQ SCH ×3 (11:08→11:54)
--- NOTE | 2018-02-13 13:45 | Internal Med Progress Note ---
Date of Encounter: 02/13/18 Time of Encounter: 13:43 - Assessment and plan (1) Acute and chronic respiratory failure Current Visit: No Status: Acute Assessment and plan: Acute on chronic hypoxic hypercapnic respiratory failure secondary to acute COPD exacerbation due to acute bacterial bronchitis Continue Rocephin day #2 and discontinue azithromycin Continue BiPAP, Solu-Medrol, oxygen therapy DuoNeb nebs History of diastolic CHF, increase IV Lasix, takes 120 mg twice a day at home Qualifiers: Qualified Code(s): J96.20 - Acute and chronic respiratory failure, unspecified whether with hypoxia or hypercapnia (2) Atrial fibrillation Current Visit: No Status: Acute Assessment and plan: history of paroxysmal A. fib, now sinus rhythm. He stopped taking Eliquis because of hand hematoma. taking baby aspirin at home Qualifiers: Atrial fibrillation type: paroxysmal Qualified Code(s): I48.0 - Paroxysmal atrial fibrillation (3) Hypercapnia Current Visit: Yes Status: Acute Assessment and plan: Patient has chronic hypercapnia. He was placed on tracheostomy for quite long time. BiPAP for now. (4) COPD exacerbation Current Visit: Yes Status: Acute Assessment and plan: - BiPAP (5) Diabetes mellitus Current Visit: No Status: Chronic Assessment and plan: Insulin sliding scale Qualifiers: Diabetes mellitus type: type 2 Diabetes mellitus group home insulin use: with terminal operator use Diabetes mellitus complication status: with kidney complications Diabetes mellitus complication detail: with chronic kidney disease Chronic kidney disease stage: stage 3 (moderate) Qualified Code(s): E11.22 - Type 2 diabetes mellitus with diabetic chronic kidney disease; N18.3 - Chronic kidney disease, stage 3 (moderate); N18.3 - Chronic kidney disease, stage 3 (moderate); Z79.4 - [facility] (current) use of insulin; Z79.4 - 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 driver (current) use of insulin; Z79.4 - 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 truck driver (current) use of insulin; Z79.4 - 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 truck driver (current) use of insulin - Time Spent With Patient Total time spent is greater than 50% in coordination of care (as documented) at patient's floor/unit and/or counseling patient: - Subjective Interval history: Is awake, not very polite, complains of shortness of breath, denies any chest pain, no abdominal pain diarrhea or dysuria, does not appear to be in distress - Constitutional Vitals: Temp Pulse Resp BP Pulse Ox 98.4 F 78 19 147/49 98 02/13/18 11:00 02/13/18 11:55 02/13/18 11:00 02/13/18 11:00 02/13/18 11:00 General appearance: Present: mild distress, A&O X 3 Exam: - Head Head exam: Present: atraumatic, normocephalic - Eye Eye exam: Present: PERRL, conjuntiva pink, sclera anicteric Pupils: Present: PERRL - Neck Neck exam general surgery: Present: supple, trachea midline. Absent: lymphadenopathy - Respiratory Respiratory exam: Present: decreased breath sounds, CTAB, wheezes (Mild diffuse wheezing). Absent: accessory muscle use, rales, rhonchi Additional comments: Tracheostomy in place, using BiPAP - Cardiovascular Cardiovascular exam: Present: RRR, +S1, +S2. Absent: diastolic murmur, gallop, rubs, systolic murmur - GI/Abdominal GI/Abdominal exam: Present: normal bowel sounds, soft, no peritoneal signs. Absent: distended, tenderness - Extremities Exam Extremities exam: Present: warm, radial pulses palpable and symmetrical. Absent : calf tenderness, cyanotic, pedal edema - Neurological Exam Neurological exam: Present: CN II-XII intact, oriented X3, no focal deficits. Absent: pronater drift, facial droop, speech deficit - Skin Skin exam: Present: dry, intact Internal Medicine: Result - Labs CBC & Chem 7: 02/13/18 04:18 02/13/18 04:18 Labs: Short CBC 02/13/18 Range/Units 04:18 WBC 18.0 H (4.3-11.1) K/mcL Hgb 12.0 L (12.9-16.9) g/dL Hct 38.3 (37.5-50.1) % Plt Count 212 (140-400) K/mcL Neutrophils # 16.9 H (1.6-8.9) K/mcL BMP 02/13/18 04:18 Sodium 136 Potassium 5.1 Chloride 94 L Carbon Dioxide 32 H BUN 77 H Creatinine 1.79 H Glucose 284 H Calcium 9.5 - ABG Interpretation ABG results: ABG ABG pH 7.34 pH Units (7.32-7.45) 02/12/18 05:33 ABG pCO2 76 mmHg (35-45) H* 02/12/18 05:33 ABG pO2 64 mmHg (85-104) L 02/12/18 05:33 ABG O2 Saturation 89 % (95-98) L 02/12/18 05:33 Consult Discharge Plan - Plan Referrals: Beverley Baum MD [Primary Care Provider] - 02/20/18 3:45 pm ()
[2018-02-13] MEDS: Artificial Tears SOLN 15 ML BOTTLE BOTH EYES PRN (16:56)
[2018-02-14] MEDS: Ipratropium/Albuterol Neb 3 ML IH SCH ×2 (03:31→11:05)
[2018-02-14] MEDS: cefTRIAXone 1,000 MG in Water for inj. (sterile) 20 ML 10 ML IVPB SCH (05:04)
[2018-02-14 05:17] LABS: Hematocrit 37.3 % (37.5-50.1); Hemoglobin 11.8 g/dL (12.9-16.9); Mean Corpuscular HGB Conc 31.6 g/dL (31.6-35.5); Mean Corpuscular Hemoglobin 29.7 pg (28.0-33.3); Mean Platelet Volume 10.3 fL (9.4-12.4); Platelet Count 189 K/mcL (140-400); Red Blood Count 3.97 M/mcL (4.19-5.50); Red Cell Distribution Width 15.5 % (11.5-14.5)
[2018-02-14] MEDS: *HR* Heparin 5,000 UNIT/ML VIAL SQ SCH (05:18)
[2018-02-14 05:38] LABS: Calcium 9.3 mg/dL (8.6-10.3); Potassium 4.6 mEq/L (3.5-5.1)
[2018-02-14 07:07] VITALS: BP 171/68
[2018-02-14] MEDS ORDERED: Insulin LISPRO 300 UNITS/3 ML VIAL SQ SCH ×2 (08:00→09:00)
[2018-02-14] MEDS: Artificial Tears SOLN 15 ML BOTTLE BOTH EYES PRN (08:11)
[2018-02-14] MEDS: Insulin LISPRO 300 UNITS/3 ML VIAL SQ SCH (08:13)
[2018-02-14] MEDS: Insulin DETEMIR 100 UNIT/ML X5UNITS SQ SCH (08:15)
[2018-02-14] MEDS: Aspirin 81 MG TAB.CHEW PO SCH (08:16)
[2018-02-14] MEDS: Diltiazem CD (24hr) 180 MG CAPSULE PO SCH (08:16)
[2018-02-14] MEDS: Furosemide 20 MG/2 ML VIAL IVP SCH (08:18)
[2018-02-14] MEDS: methylPREDNISolone 125 MG/2 ML VIAL IVP SCH (08:24)
--- NOTE | 2018-02-14 09:11 | Discharge Summary ---
- NOTES TO OUTPATIENT PROVIDER Notes to Outpatient Provider: Follow-up with primary care physician within the next 7 days. Follow-up with the pulmonary service within the next 2 weeks. Complete 5 more days of cefdinir. Prednisone taper as follows:60 mg daily for 5 days, 50 mg for 5 days, 40 mg for 5 days, 30 mg for 5 days, 20 mg for 5 days, 10 mg for 5 days. Use short acting insuling while being on steroids. Date of Encounter: 02/14/18 Time of Encounter: 09:04 - Discharge Diagnosis (1) Acute and chronic respiratory failure Priority: Primary Status: Acute Assessment and Plan: Acute on chronic hypoxic hypercapnic respiratory failure secondary to acute COPD exacerbation due to acute bacterial bronchitis Qualifiers: Qualified Code(s): J96.20 - Acute and chronic respiratory failure, unspecified whether with hypoxia or hypercapnia (2) Atrial fibrillation Priority: Secondary Status: Acute Qualifiers: Atrial fibrillation type: paroxysmal Qualified Code(s): I48.0 - Paroxysmal atrial fibrillation (3) Hypercapnia Priority: Primary Status: Acute (4) COPD exacerbation Priority: Primary Status: Acute (5) Diabetes mellitus Priority: Secondary Status: Chronic Qualifiers: Diabetes mellitus type: type 2 Diabetes mellitus [facility] insulin use: with fci use Diabetes mellitus complication status: with kidney complications Diabetes mellitus complication detail: with chronic kidney disease Chronic kidney disease stage: stage 3 (moderate) Qualified Code(s): E11.22 - Type 2 diabetes mellitus with diabetic chronic kidney disease; N18.3 - Chronic kidney disease, stage 3 (moderate); N18.3 - Chronic kidney disease, stage 3 (moderate); Z79.4 - penitentiary (current) use of insulin; Z79.4 - penitentiary (current) use of insulin; Z79.4 - penitentiary (current) use of insulin; Z79.4 - penitentiary (current) use of insulin Hospital course: Mr. Zaman is a 67 year old male with a Past medical history is significant for COPD with chronic hypercapnia with tracheostomy, diabetes insulin dep , hypertension, diastolic CHF, paroxysmal A. fib not on anticoagulation. Came to the ER with increased shortness of breath. Uses a tracheostomy during night but breathing by himself during daytime by capping the tracheostomy tube. The patient was more sleepy, with decreased oxygen saturation and increased mucus secretion from tracheostomy tube. Denied fever, chest pain, nausea, or vomiting. In the emergency room, he was found to have bilateral wheezes/ rhonchi. Patient was treated as COPD exacerbation with antibiotic, steroid, and bronchodilator. He was also placed on BiPAP with capping his tracheostomy tube. After treatment, patient's condition has slightly improved. Chest x-ray showed:Peribronchial cuffing may reflect mild edema versus diffuse airway inflammation. No focal pneumonia. ABG showed a pH of 7.37, PCO2 of 74, PO2 of 65 Was given 3 days of Rocephin and 2 days of azithromycin Required BIPAP initially, was continued on Solu-Medrol, oxygen therapy, received DuoNeb nebs History of diastolic CHF, used IV Lasix history of paroxysmal A. fib. He stopped taking Eliquis because of hand hematoma, refused to be back on it. Is taking aspirin at home . Prefers not to use BiPAP. Was not very polite with the health care staff, complaining about multiple things. Was given the option to stay an additional day but the patient insisted on going home. - Time Spent with Patient Total time spent providing and/or coordinating discharge services: Greater than 30 minutes (40 min) - Discharge Medications Prescriptions: Cefdinir [Omnicef] 300 mg PO BID #10 capsule Insulin LISPRO [HumaLOG] 15 units SQ TIDWM 30 Days vial predniSONE [PredniSONE] 10 mg PO DAILY 30 Days tablet Home Medications: Albuterol Sulfate [Albuterol Inhaler] 2 puff IH Q4HR PRN 11/16/15 [History] Allopurinol [Zyloprim 300 MG] 300 mg PO DAILY 11/16/15 [History] Levothyroxine [Synthroid] 75 mcg PO 0630 11/16/15 [History] Potassium Chloride [K-Tab ER] 20 meq PO 6XD 11/16/15 [History] Spironolactone [Aldactone] 50 mg PO BID 11/16/15 [History] Furosemide [Lasix] 120 mg PO BID 08/19/17 [History] OxyCODONE/APAP 10/325 [Percocet 10/325 MG] 1 tab PO Q6H PRN #20 08/23/17 [Rx] Albuterol Neb [Proventil Neb] 2.5 mg IH Q6H PRN 11/01/17 [History] Budesonide/Formoterol 160/4.5 [Symbicort 160/4.5] 2 puff IH BIDR 11/01/17 [ History] Citalopram Hydrobromide [Celexa] 40 mg PO DAILY 11/01/17 [History] Insulin Glargine,Hum.rec.anlog [Toujeo Solostar] 100 units SQ BID 11/01/17 [ History] Magnesium Oxide [Mag-Ox] 400 mg PO DAILY 11/01/17 [History] Zolpidem [Ambien] 5 mg PO HS 11/01/17 [History] Diltiazem HCl [Diltiazem 24Hr Cd] 180 mg PO DAILY #30 cap 11/06/17 [Rx] Aspirin 325 mg PO DAILY 02/12/18 [History] Cefdinir [Omnicef] 300 mg PO BID #10 capsule 02/14/18 [Rx] Insulin LISPRO [HumaLOG] 15 units SQ TIDWM 30 Days vial 02/14/18 [Rx] predniSONE [PredniSONE] 10 mg PO DAILY 30 Days tablet 02/14/18 [Rx] Allergies/Adverse Reactions: 3 Allergy/AdvReac Type Severity Reaction Status Date / Time No Known Allergies Allergy Verified 02/12/18 00:14 Date of admission: 02/12/18 03:14 Primary care physician: Beverley Baum MD - Constitutional Vitals: Temp Pulse Resp BP Pulse Ox 98.1 F 72 18 171/68 93 02/14/18 07:05 02/14/18 07:05 02/14/18 07:05 02/14/18 07:05 02/14/18 08:44 General appearance: Present: mild distress, A&O X 3 Exam: - Head Head exam: Present: atraumatic, normocephalic - Eye Eye exam: Present: PERRL, conjuntiva pink, sclera anicteric Pupils: Present: PERRL - Neck Neck exam general surgery: Present: supple, trachea midline. Absent: lymphadenopathy - Respiratory Respiratory exam: Present: decreased breath sounds, CTAB, wheezes (Mild diffuse wheezing). Absent: accessory muscle use, rales, rhonchi Additional comments: Tracheostomy in place - Cardiovascular Cardiovascular exam: Present: RRR, +S1, +S2. Absent: diastolic murmur, gallop, rubs, systolic murmur - GI/Abdominal GI/Abdominal exam: Present: normal bowel sounds, soft, no peritoneal signs. Absent: distended, tenderness - Extremities Exam Extremities exam: Present: warm, radial pulses palpable and symmetrical. Absent : calf tenderness, cyanotic, pedal edema - Neurological Exam Neurological exam: Present: CN II-XII intact, oriented X3, no focal deficits. Absent: pronater drift, facial droop, speech deficit - Skin Skin exam: Present: dry, intact - Patient Status Disposition: Home Health Service Condition: Good Overall status at discharge: patient is progressing back to baseline - Discharge Instructions Follow Up With: Beverley Baum MD [Primary Care Provider] - 02/20/18 3:45 pm () Additional Instructions: Follow-up with primary care physician within the next 7 days. Follow-up with the pulmonary service within the next 2 weeks. Complete 5 more days of cefdinir. Prednisone taper as follows:60 mg daily for 5 days, 50 mg for 5 days , 40 mg for 5 days, 30 mg for 5 days, 20 mg for 5 days, 10 mg for 5 days. Use short acting insuling while being on steroids. - Diet and Activity Activity: increase activity as tolerated Diet: diabetic diet
--- NOTE | 2018-02-14 09:31 | Physician Discharge Referral ---
Home Health/Hosp Referral Info Transfer to: Home Health Provider in Charge Post Discharge: PCP - Diagnosis (1) Acute and chronic respiratory failure Status: Acute (2) Atrial fibrillation Status: Acute (3) Hypercapnia Status: Acute (4) COPD exacerbation Status: Acute (5) Diabetes mellitus Status: Chronic - Respiratory Orders Oxygen / L per min Smoking Cessation: Smoking cessation has been advised. For more information, call the [place] Tobacco Quit Line at 3-508-RFBH-NOW. - Diet/Nutrition Diet/Nutrition: List: diabetic diet - Services Needed Following services are medically necessary services: Home Health Aide, Physical Therapy, Occupational Therapy Home Care Orders: Follow-up with primary care physician within the next 7 days. Follow-up with the pulmonary service within the next 2 weeks. Complete 5 more days of cefdinir. Prednisone taper as follows:60 mg daily for 5 days, 50 mg for 5 days , 40 mg for 5 days, 30 mg for 5 days, 20 mg for 5 days, 10 mg for 5 days. Use short acting insuling while being on steroids. - Transfer Medications Prescriptions: Cefdinir [Omnicef] 300 mg PO BID #10 capsule Insulin LISPRO [HumaLOG] 15 units SQ TIDWM 30 Days vial predniSONE [PredniSONE] 10 mg PO DAILY 30 Days tablet Home Medications: Albuterol Sulfate [Albuterol Inhaler] 2 puff IH Q4HR PRN 11/16/15 [History] Allopurinol [Zyloprim 300 MG] 300 mg PO DAILY 11/16/15 [History] Levothyroxine [Synthroid] 75 mcg PO 0630 11/16/15 [History] Potassium Chloride [K-Tab ER] 20 meq PO 6XD 11/16/15 [History] Spironolactone [Aldactone] 50 mg PO BID 11/16/15 [History] Furosemide [Lasix] 120 mg PO BID 08/19/17 [History] OxyCODONE/APAP 10/325 [Percocet 10/325 MG] 1 tab PO Q6H PRN #20 08/23/17 [Rx] Albuterol Neb [Proventil Neb] 2.5 mg IH Q6H PRN 11/01/17 [History] Budesonide/Formoterol 160/4.5 [Symbicort 160/4.5] 2 puff IH BIDR 11/01/17 [ History] Citalopram Hydrobromide [Celexa] 40 mg PO DAILY 11/01/17 [History] Insulin Glargine,Hum.rec.anlog [Toutravis Solostar] 100 units SQ BID 11/01/17 [ History] Magnesium Oxide [Mag-Ox] 400 mg PO DAILY 11/01/17 [History] Zolpidem [Ambien] 5 mg PO HS 11/01/17 [History] Diltiazem HCl [Diltiazem 24Hr Cd] 180 mg PO DAILY #30 cap 11/06/17 [Rx] Aspirin 325 mg PO DAILY 02/12/18 [History] Cefdinir [Omnicef] 300 mg PO BID #10 capsule 02/14/18 [Rx] Insulin LISPRO [HumaLOG] 15 units SQ TIDWM 30 Days vial 02/14/18 [Rx] predniSONE [PredniSONE] 10 mg PO DAILY 30 Days tablet 02/14/18 [Rx] Allergies/Adverse Reactions: 3 Allergy/AdvReac Type Severity Reaction Status Date / Time No Known Allergies Allergy Verified 02/12/18 00:14 Certification: Further, I certify that my clinical findings support that this patient is homebound (i.e. absences from home require considerable and taxing effort and are for medical reasons or hindu services or infrequently or short duration when for other reasons) because: Homebound Reason: Patient requires assistance of a person or device to safely leave home Attestation: My signature below is to certify that this patient is under my care and that I, or nurse practitioner, or a physician's medical record assistant working with me, has a face-to -face encounter with this patient.
[2018-02-14] MEDS: Budesonide/Formoterol 160/4.5 MDI IH SCH (11:05)
== END 2018-02-14 12:34 | disposition home health service (06) | DRG 190 ==
LOC: EMEROO 00:10 → 2NENU 00:10 → 2NNU 03:13 → SUATTDRO 03:14 → 2NNU 04:00 → 2ANU 02-13 15:07
PROVIDERS: ADMIT Internal Medicine; ATTEND Internal Medicine

== ENCOUNTER 2018-03-22 13:59 | Inpatient (IN) ==
[2018-03-22 16:01] LABS: ABG Base Excess 13 mEq/L (-2 to 3); ABG HCO3 45 mEq/L (21-27); ABG Oxygen Saturation 100 % (95-98); ABG PCO2 101 mmHg (35-45); ABG PH 7.26 pH Units (7.32-7.45); ABG PO2 286 mmHg (85-104); ABG TCO2 48 mEq/L (20-26); Blood Gas PEEP 10 cm H2O; Blood Gas Pressure Support 18 cm H2O
[2018-03-22] MEDS ORDERED: Ipratropium/Albuterol Neb 3 ML IH PRN (16:19)
[2018-03-22] MEDS ORDERED: *HR* Dextrose 50 % in Water (Syg) 50 ML SYRINGE IVP PRN (16:22)
[2018-03-22] MEDS ORDERED: Dextrose Gel 15 GM/37.5 ML TUBE PO PRN ×2 (16:22)
[2018-03-22] MEDS ORDERED: D5% in Water 1,000 ML IVC PRN (16:22)
[2018-03-22] MEDS ORDERED: Naloxone 0.4 MG/ML INJ IVP PRN (16:24)
[2018-03-22] MEDS ORDERED: Calcium Chloride 1,000 MG in 0.9 % Sodium Chloride 100 ML IVPB ONE (16:28)
--- NOTE | 2018-03-22 16:31 | Internal Med History&Physical ---
Date of Encounter: 03/22/18 Time of Encounter: 16:28 Internal Medicine - H&P: HPI Chief complaint: Lethargy History of present illness: Mr. Zaman is a 67 year old male who presents with acute on chronic hypercapnic respiratory failure. He lives with his daughter at home and was found and examined this morning with increased somnolence. He was brought to [place] ER and he was found to have hypercarbic respiratory failure and was placed on BiPAP prior to transfer to [facility]. Review noted that he visited his PCP 2 weeks ago with increased mucus through the trach and was prescribed 2 weeks course of Augmentin which he had completed more than 10 days of. His daughter also reported that in the last 2 weeks he had an increase need for oxygen using around 1 or 2 L nasal cannula. On review of his comp acute medical history, it was reported that he had a history of recurrent hypercapnic respiratory failure leading to a trach placement at [facility] in early 2015. He does have COPD and a history of possible obesity hyperventilation syndrome. Per family, patient had a metal trach due to allergy to the prior tracheostomy. When he needs to be on ventilator they would replace the metal trach with a Shiley 6 XL 2 cuff. At baseline he is able to speak and swallow. He keeps his mental trach close during the day but in the night he keeps the trach open. His other comorbid history includes C daily, diastolic CHF, asthma A. fib, insulin-dependent diabetes. EKG performed at [facility] Rhythm - normal sinus rhythm Rate - 75 CT/CT head/brain wo con IMPRESSION: No acute intracranial abnormality FINDINGS: Evaluation is suboptimal secondary to body habitus and portable technique. In addition, there is mild motion artifact. Unchanged tracheostomy. Stable cardiomediastinal contours. No acute airspace disease, pleural effusion, or pneumothorax. XR/XR chest 1V portable IMPRESSION: No acute abnormality. Past Med Surg Social Fam HX - Past Medical History Medical history: arthritis, CHF, COPD, diabetes, GERD, hyperlipidemia, hypertension, thyroid disease, other Additional medical history: Gout Psychiatric history: no psych history - Past Surgical History Surgical History: orthopedic, other Additional surgical history: left heel - Social History Smoking Status: Former smoker Smokeless Tobacco Status: Yes Alcohol use: none Drug use: none - Family History Mother Living Status: Hx Family Cancer: Yes (Leukemia) Hx Family Endocrine Disorder: Yes (DM) Father Living Status: Hx Family Cancer: Yes (Colon) Internal Medicine - H&P: Meds Albuterol Sulfate [Albuterol Inhaler] 2 puff IH Q4HR PRN 11/16/15 [History] Allopurinol [Zyloprim 300 MG] 300 mg PO DAILY 11/16/15 [History] Levothyroxine [Synthroid] 75 mcg PO 0630 11/16/15 [History] Potassium Chloride [K-Tab ER] 20 meq PO 6XD 11/16/15 [History] Spironolactone [Aldactone] 50 mg PO BID 11/16/15 [History] Furosemide [Lasix] 120 mg PO BID 08/19/17 [History] OxyCODONE/APAP 10/325 [Percocet 10/325 MG] 1 tab PO Q6H PRN #20 08/23/17 [Rx] Albuterol Neb [Proventil Neb] 2.5 mg IH Q6H PRN 11/01/17 [History] Budesonide/Formoterol 160/4.5 [Symbicort 160/4.5] 2 puff IH BIDR 11/01/17 [ History] Citalopram Hydrobromide [Celexa] 40 mg PO DAILY 11/01/17 [History] Insulin Glargine,Hum.rec.anlog [Toujeo Solostar] 110 units SQ BID 11/01/17 [ History] Magnesium Oxide [Mag-Ox] 400 mg PO DAILY 11/01/17 [History] Zolpidem [Ambien] 5 mg PO HS 11/01/17 [History] Diltiazem HCl [Diltiazem 24Hr Cd] 180 mg PO DAILY #30 cap 11/06/17 [Rx] Aspirin 325 mg PO DAILY 02/12/18 [History] Amiodarone HCl [Pacerone] 200 mg PO DAILY 03/22/18 [History] Ergocalciferol (VITAMIN D2) [Vitamin D2] 50,000 unit PO QWEEK 03/22/18 [History] 3 Allergy/AdvReac Type Severity Reaction Status Date / Time No Known Allergies Allergy Verified 02/12/18 00:14 All Systems PM: A 10-system review of systems was performed and is negative for pertinent findings except as documented above in the HPI. Review of systems: ROS 14 point review of systems reviewed as best as possible given presentation. Pertinent positive or negative as per HPI or otherwise reviewed as negative - Constitutional Vitals: Pulse Resp BP Pulse Ox 75 22 175/81 97 03/22/18 15:59 03/22/18 15:40 03/22/18 15:40 03/22/18 16:21 Exam: General - Moving all 4 extremities. Improving mentation Eyes - LUIZ. Eye lids intact. No scleral icterus Neuro - Moving all 4 extremities on command Heart - Sinus. RRR. S1 and S2 present. No added HS/murmurs appreciated. No elevated JVD appreciated. Lung - Adequate air entry b/l, No crackles/wheezes appreciated on Bipap GI - Soft, non-tender. No hepatosplenomegaly/ascites. BS+ - No CVA/suprapubic tenderness or palpable bladder distension Skin - Intact. No rash/petechiae/ecchymosis. Warm extremities. +1 b/l LE edema Internal Med - H&P Results - ABG Interpretation ABG results: 03/22/18 15:54 ABG pH 7.26 L ABG pCO2 101 H* ABG pO2 286 H D ABG HCO3 45 H ABG Total CO2 48 H ABG O2 Saturation 100 H ABG Base Excess 13 H - Assessment and plan (1) Acute and chronic respiratory failure Current Visit: No Status: Acute Assessment and plan: likely multi-factorial has a hx of recurrent resp failure with hypercapnea has chronic CO2 retention likely has obesity hypoventilation syndrome, bronchospasm with COPD , some mucus plugg ?? empiric BIPAP, IV steroids, IV doxy, duonebs consult pulm to management given complicated pulm issues above Qualifiers: Respiratory failure complication: hypercapnia Qualified Code(s): J96.22 - Acute and chronic respiratory failure with hypercapnia (2) COPD exacerbation Current Visit: No Status: Acute (3) Atrial fibrillation Current Visit: No Status: Acute Qualifiers: Atrial fibrillation type: paroxysmal Qualified Code(s): I48.0 - Paroxysmal atrial fibrillation (4) Diastolic CHF Current Visit: Yes Status: Acute Assessment and plan: hold home lasix and potassium supplement due to NPO status will hold IVF given above appears compensated Qualifiers: Heart failure chronicity: chronic Qualified Code(s): I50.32 - Chronic diastolic (congestive) heart failure (5) CKD (chronic kidney disease) Current Visit: No Status: Chronic Assessment and plan: trend Cr Qualifiers: Chronic kidney disease stage: stage 3 (moderate) Qualified Code(s): N18.3 - Chronic kidney disease, stage 3 (moderate) (6) Diabetes mellitus Current Visit: No Status: Chronic Assessment and plan: due to NPO status, will half home lantus dose from 110 to 55 U BID for now Add moderate scale ISS Adjust insulin accordingly while on steroids Qualifiers: Diabetes mellitus roasterman insulin use: with residential use Chronic kidney disease stage: stage 2 (mild) Qualified Code(s): E08.22 - Diabetes mellitus due to underlying condition with diabetic chronic kidney disease; N18.2 - Chronic kidney disease, stage 2 (mild); Z79.4 - long term care phlebotomist (current) use of insulin (7) Hypothyroidism Current Visit: No Status: Chronic Assessment and plan: continue synthroid Qualifiers: Hypothyroidism type: other Qualified Code(s): E03.8 - Other specified hypothyroidism (8) Tracheostomy care Current Visit: No Status: Chronic Assessment and plan: consult pulm to assist in trach management as necessary (9) Obesity Current Visit: Yes Status: Acute Assessment and plan: education Qualifiers: Obesity type: due to excess calories Body mass index: BMI 45.0-49.9 Qualified Code(s): E66.01 - Morbid (severe) obesity due to excess calories; Z68.42 - Body mass index (BMI) 45.0-49.9, adult - Time Spent With Patient Total time spent is greater than 50% in coordination of care (as documented) at patient's floor/unit and/or counseling patient:
[2018-03-22] MEDS: Ipratropium/Albuterol Neb 3 ML IH SCH ×2 (17:10→21:41)
[2018-03-22 17:39] LABS: ABG Base Excess 11 mEq/L (-2 to 3); ABG HCO3 43 mEq/L (21-27); ABG Oxygen Saturation 94 % (95-98); ABG PCO2 94 mmHg (35-45); ABG PH 7.27 pH Units (7.32-7.45); ABG PO2 88 mmHg (85-104); ABG TCO2 46 mEq/L (20-26); Blood Gas PEEP 10 cm H2O; Blood Gas Pressure Support 18 cm H2O
[2018-03-22] MEDS: Insulin LISPRO 300 UNITS/3 ML VIAL SQ SCH ×2 (17:53→23:35)
[2018-03-22] MEDS: MethylPREDNISolone 40 MG/ML VIAL IVP SCH ×2 (17:58→23:34)
[2018-03-22] MEDS: Doxycycline 100 MG in 0.9 % Sodium Chloride Mini Bag 100 ML IVPB SCH (17:58)
[2018-03-22] MEDS: Pantoprazole 40 MG VIAL IVP SCH (17:58)
[2018-03-22] MEDS: Insulin DETEMIR 100 UNIT/ML X5UNITS SQ SCH (21:36)
[2018-03-22] MEDS: Budesonide/Formoterol 160/4.5 MDI IH SCH (21:41)
[2018-03-22] MEDS: *HR* Heparin 5,000 UNIT/ML VIAL SQ SCH (23:34)
[2018-03-23 03:56] LABS: Calcium 9.2 mg/dL (8.6-10.3); Potassium 5.3 mEq/L (3.5-5.1)
[2018-03-23 04:41] LABS: ABG Base Excess 15 mEq/L (-2 to 3); ABG HCO3 45 mEq/L (21-27); ABG Oxygen Saturation 97 % (95-98); ABG PCO2 82 mmHg (35-45); ABG PH 7.35 pH Units (7.32-7.45); ABG PO2 103 mmHg (85-104); ABG TCO2 47 mEq/L (20-26)
[2018-03-23] MEDS: MethylPREDNISolone 40 MG/ML VIAL IVP SCH ×4 (05:10→23:34)
[2018-03-23] MEDS: Doxycycline 100 MG in 0.9 % Sodium Chloride Mini Bag 100 ML IVPB SCH ×2 (05:10→17:46)
[2018-03-23] MEDS: Insulin LISPRO 300 UNITS/3 ML VIAL SQ SCH ×4 (05:13→23:28)
--- NOTE | 2018-03-23 08:13 | Pulmonology Consult Note ---
<Matt Benjamin W - Last Filed: 03/23/18 10:13> Date of Encounter: 03/23/18 Medications and Allergies Albuterol Sulfate [Albuterol Inhaler] 2 puff IH Q4HR PRN 11/16/15 [History] Allopurinol [Zyloprim 300 MG] 300 mg PO DAILY 11/16/15 [History] Levothyroxine [Synthroid] 75 mcg PO 0630 11/16/15 [History] Potassium Chloride [K-Tab ER] 20 meq PO 6XD 11/16/15 [History] Spironolactone [Aldactone] 50 mg PO BID 11/16/15 [History] Furosemide [Lasix] 120 mg PO BID 08/19/17 [History] OxyCODONE/APAP 10/325 [Percocet 10/325 MG] 1 tab PO Q6H PRN #20 08/23/17 [Rx] Albuterol Neb [Proventil Neb] 2.5 mg IH Q6H PRN 11/01/17 [History] Budesonide/Formoterol 160/4.5 [Symbicort 160/4.5] 2 puff IH BIDR 11/01/17 [ History] Citalopram Hydrobromide [Celexa] 40 mg PO DAILY 11/01/17 [History] Insulin Glargine,Hum.rec.anlog [Toujeo Solostar] 110 units SQ BID 11/01/17 [ History] Magnesium Oxide [Mag-Ox] 400 mg PO DAILY 11/01/17 [History] Zolpidem [Ambien] 5 mg PO HS 11/01/17 [History] Diltiazem HCl [Diltiazem 24Hr Cd] 180 mg PO DAILY #30 cap 11/06/17 [Rx] Aspirin 325 mg PO DAILY 02/12/18 [History] Amiodarone HCl [Pacerone] 200 mg PO DAILY 03/22/18 [History] Ergocalciferol (VITAMIN D2) [Vitamin D2] 50,000 unit PO QWEEK 03/22/18 [History] 3 Allergy/AdvReac Type Severity Reaction Status Date / Time No Known Allergies Allergy Verified 02/12/18 00:14 All Systems: The remainder of the systems were reviewed and are negative Physical Examination Vital Signs: Vital Signs, Last 4 Hours Temp Pulse Resp BP Pulse Ox 03/23/18 09:32 14 93 03/23/18 09:00 93 22 122/56 90 03/23/18 08:00 85 10 144/65 95 03/23/18 07:49 98.5 F 03/23/18 07:00 87 22 149/66 92 Results - Laboratory Findings CBC and BMP: 03/23/18 03:23 ABG ABG pH 7.35 pH Units (7.32-7.45) 03/23/18 04:36 ABG pCO2 82 mmHg (35-45) H* 03/23/18 04:36 ABG pO2 103 mmHg (85-104) 03/23/18 04:36 ABG O2 Saturation 97 % (95-98) 03/23/18 04:36 Abnormal lab findings: Abnormal lab results ABG pCO2 82 mmHg (35-45) H* 03/23/18 04:36 ABG HCO3 45 mEq/L (21-27) H 03/23/18 04:36 ABG Total CO2 47 mEq/L (20-26) H 03/23/18 04:36 ABG Base Excess 15 mEq/L (-2 to 3) H 03/23/18 04:36 Potassium 5.3 mEq/L (3.5-5.1) H 03/23/18 03:23 Carbon Dioxide 39 mEq/L (23-29) H 03/23/18 03:23 BUN 38 mg/dL (8-23) H 03/23/18 03:23 Creatinine 1.67 mg/dL (0.70-1.30) H 03/23/18 03:23 Est GFR ( Amer) 50 (> 60) L 03/23/18 03:23 Est GFR (Non-Af Amer) 41 (> 60) L 03/23/18 03:23 Glucose 189 mg/dL (70-105) H 03/23/18 03:23 POC Glucose 173 mg/dL (70-99) H 03/23/18 05:12 Calculated Osmolality 308 (280-300) H 03/23/18 03:23 - Clinical Findings Intake & Output: Intake & Output 03/22/18 03/23/18 03/23/18 23:59 07:59 15:59 Intake Total 100 / 100 100 / 100 Output Total 700 / 700 525 / 525 Balance -600 / -600 -425 / -425 Weight 147.3 kg Consult Discharge Plan - Plan Referrals: Beverley Baum MD [Primary Care Provider] - - Attending Attestation I examined this patient and my medical decision-making was reviewed with the Resident Physician. I agree with the documented findings, disposition and treatment plan as described except to the extent set forth below. We independently had [id number] contact with the patient Patient seen and examined at bedside Labs, radiology, chart personally reviewed. Management was reviewed during multidisciplinary critical care rounds. 67-year-old gentleman chronic trach was placed approximately 2 years ago at [facility] because of chronic respiratory failure sleep apnea COPD obesity hypoventilation syndrome. In the past he had been maintained on noninvasive ventilation at night through the trach but overall did very poorly with this strategy including multiple infections which led to placement of a metallic uncuffed trach. Current strategy is During the day and open at night. He does have BiPAP at home but is not using it currently knee pain. History was confirmed with his daughter who helps take care of him. Impression 1. Acute on chronic hypoxic/hypercapnic respiratory failure 2. Encephalopathy 3. AECOPD (mild) 4. Hyperkalemia (mild) Recs: - This is stabilized overnight. Continue nasal cannula during the day and should use BiPAP during sleep and at night total 810 hours he needs home-going BiPAP with empiric settings 24/07 with oxygen bleed to keep saturation greater than 80% he has a follow-up appointment pulmonary scheduled in May -This is secondary to hypercarbia possibly secondary to COPD exacerbation improving he has a baseline irascible personality and has been difficult to assuage his dissatisfaction with our institution despite multiple efforts I have also referred him to our patient advocate which is refused - Transition to oral prednisone to complete 5 day burst doxycycline 5 days counseled the patient to avoid sun exposure over the next few days for risk of photosensitivity while taking this medication -We will give a dose of Lasix stop spironolactone will need outpatient follow- up for decision on if this medication is necessary or not Stable [facility] <Chelle Alfaro - Last Filed: 03/23/18 11:20> Date of Encounter: 03/23/18 Time of Encounter: 08:09 Assessment and Plan (1) Acute encephalopathy Current Visit: Yes Status: Resolved Resolved Most likely resulting from acute on chronic respiratory failure with acute on chronic hypercarbia--as below for acute on chronic respiratory failure Mild hyperkalemia may be contributing, 5.3 this morning--as below for hyperkalemia Awake, alert, oriented this morning on exam and mentating well Spoke with hospitalist Dr. Kerr @ 10:20 who agreed to accept pt (2) Acute and chronic respiratory failure Current Visit: Yes Status: Acute Acute on chronic respiratory failure in setting of acute on chronic hypercarbia Multifactorial etiology: chronic CO2 retention, obesity hypoventilation syndrome , mild COPD exacerbation Likely contributed to pt's acute encephalopathy on presentation to [facility] ED COPD exacerbation treatment as below Pt would benefit from nocturnal BiPAP and BiPAP whenever sleeping Qualifiers: Respiratory failure complication: hypercapnia Qualified Code(s): J96.22 - Acute and chronic respiratory failure with hypercapnia (3) COPD exacerbation Current Visit: Yes Status: Acute Mild COPD exacerbation Recommend prednisone 40 mg QD x 5 days Continue doxycycline Continue symbicort and duoneb (4) Hyperkalemia Current Visit: Yes Status: Acute Potassium 5.3 this AM Lasix 40 mg IV given Hold spironolactone for now Recheck BMP for 12:00 (5) CKD (chronic kidney disease) Current Visit: Yes Status: Chronic Stage III CKD SCr today 1.67 Recent baseline SCr around 1.8 to 1.9 Continue to monitor renal function with AM labs Qualifiers: Chronic kidney disease stage: stage 3 (moderate) Qualified Code(s): N18.3 - Chronic kidney disease, stage 3 (moderate) (6) Atrial fibrillation Current Visit: Yes Status: Acute HR stable at 70's-80's bpm Rate controlled Continue amiodarone and diltiazem Qualifiers: Atrial fibrillation type: paroxysmal Qualified Code(s): I48.0 - Paroxysmal atrial fibrillation (7) Diabetes mellitus Current Visit: Yes Status: Chronic Continue SSI medium corrective dose Diabetic diet Qualifiers: Diabetes mellitus chef de partie insulin use: with chef de partie use Chronic kidney disease stage: stage 2 (mild) Qualified Code(s): E08.22 - Diabetes mellitus due to underlying condition with diabetic chronic kidney disease; N18.2 - Chronic kidney disease, stage 2 (mild); Z79.4 - language instructor (current) use of insulin (8) DVT prophylaxis Current Visit: Yes Status: Acute Heparin 5,000 units SubQ Q8H History of Present Illness Consult date: 03/23/18 Chief complaint: Lethargic History of present illness: Mr. Zaman is a 67 year-old male with h/o chronic trach who presented with acute on chronic hypercapnic respiratory failure. Pt was brought to [facility] ED after his family found him less responsive that usual yesterday morning. His family had tried increasing his oxygen from 1 to 5 L, but when his responsiveness didn't improve the family decided to take him to the ED. While in [facility] ED he was found to be in hypercarbic respiratory failure, placed on BiPAP and transferred here. Pt reportedly saw his PCP 2 weeks ago with increased mucus coming from trach and was given 14-day course Augmentin. Over last 2 weeks, pt's daughter had reported he had increased need for oxygen, using 1 to 2 L nasal cannula. EKG at [facility] showed NSR with rate 75 CT head without contrast showed no acute intracranial abnormality CXR no acute abnormality Past Med Surg Social Fam HX - Past Medical History Medical history: arthritis, CHF, COPD, diabetes, GERD, hyperlipidemia, hypertension, thyroid disease, other Additional medical history: Gout Psychiatric history: no psych history - Past Surgical History Surgical History: orthopedic, other Additional surgical history: left heel - Social History Smoking Status: Former smoker Smokeless Tobacco Status: Yes Alcohol use: none Drug use: none - Family History Mother Living Status: Hx Family Cancer: Yes (Leukemia) Hx Family Endocrine Disorder: Yes (DM) Father Living Status: Hx Family Cancer: Yes (Colon) All Systems: The remainder of the systems were reviewed and are negative - Constitutional Constitutional: no chills, no fever(s) - Cardiovascular Cardiovascular: no chest pain - Respiratory Respiratory: cough (and sputum production at baseline) - Gastrointestinal Gastrointestinal: other (constipation), no abdominal pain, no diarrhea, no nausea, no vomiting Physical Examination Vital Signs: Vital Signs, Last 4 Hours Temp Pulse Resp BP Pulse Ox 03/23/18 07:49 98.5 F 03/23/18 06:00 79 16 135/64 95 03/23/18 05:00 80 15 138/70 96 General appearance: no acute distress Neck: supple Effort: normal Inspection: normal Auscultation: bilateral: clear Cardiovascular: regular rate and rhythm Gastrointestinal: normoactive bowel sounds, non-tender, non-distended Extremities: no cyanosis, no edema, no clubbing Results - Laboratory Findings CBC and BMP: 03/23/18 03:23 ABG ABG pH 7.35 pH Units (7.32-7.45) 03/23/18 04:36 ABG pCO2 82 mmHg (35-45) H* 03/23/18 04:36 ABG pO2 103 mmHg (85-104) 03/23/18 04:36 ABG O2 Saturation 97 % (95-98) 03/23/18 04:36 Abnormal lab findings: Abnormal lab results ABG pCO2 82 mmHg (35-45) H* 03/23/18 04:36 ABG HCO3 45 mEq/L (21-27) H 03/23/18 04:36 ABG Total CO2 47 mEq/L (20-26) H 03/23/18 04:36 ABG Base Excess 15 mEq/L (-2 to 3) H 03/23/18 04:36 Potassium 5.3 mEq/L (3.5-5.1) H 03/23/18 03:23 Carbon Dioxide 39 mEq/L (23-29) H 03/23/18 03:23 BUN 38 mg/dL (8-23) H 03/23/18 03:23 Creatinine 1.67 mg/dL (0.70-1.30) H 03/23/18 03:23 Est GFR ( Amer) 50 (> 60) L 03/23/18 03:23 Est GFR (Non-Af Amer) 41 (> 60) L 03/23/18 03:23 Glucose 189 mg/dL (70-105) H 03/23/18 03:23 POC Glucose 173 mg/dL (70-99) H 03/23/18 05:12 Calculated Osmolality 308 (280-300) H 03/23/18 03:23 - Clinical Findings Intake & Output: Intake & Output 03/22/18 03/23/18 03/23/18 23:59 07:59 15:59 Intake Total 100 / 100 100 / 100 Output Total 700 / 700 525 / 525 Balance -600 / -600 -425 / -425 Weight 147.3 kg
[2018-03-23] MEDS ORDERED: Furosemide 40 MG/4 ML VIAL IVP ONE (08:30)
[2018-03-23] MEDS ORDERED: Aspirin 325 MG TABLET PO SCH (09:00)
[2018-03-23] MEDS ORDERED: Magnesium Oxide 400 MG TABLET PO SCH (09:00)
[2018-03-23] MEDS ORDERED: *HR* Amiodarone 200 MG TABLET PO SCH (09:00)
[2018-03-23] MEDS ORDERED: Diltiazem CD (24hr) 180 MG CAPSULE PO SCH (09:00)
[2018-03-23] MEDS ORDERED: Spironolactone 25 MG TABLET PO SCH (09:00)
[2018-03-23] MEDS ORDERED: NON-FORMULARY MEDICATION 1 EACH EACH (Potassium Chloride [K-Tab Er] 20 MEQ) PO SCH (09:00)
[2018-03-23] MEDS ORDERED: Furosemide 40 MG TABLET PO SCH ×2 (09:00→17:00)
[2018-03-23] MEDS: Pantoprazole 40 MG VIAL IVP SCH (09:29)
[2018-03-23] MEDS: Ipratropium/Albuterol Neb 3 ML IH SCH (09:30)
[2018-03-23] MEDS: Budesonide/Formoterol 160/4.5 MDI IH SCH ×2 (09:30→22:24)
[2018-03-23] MEDS: *HR* Heparin 5,000 UNIT/ML VIAL SQ SCH ×3 (09:30→23:31)
[2018-03-23] MEDS: Insulin DETEMIR 100 UNIT/ML X5UNITS SQ SCH ×2 (09:30→20:24)
[2018-03-23] MEDS ORDERED: Ipratropium/Albuterol Neb 3 ML IH SCH (11:00)
[2018-03-23] MEDS ORDERED: D5% in Water 1,000 ML IVC PRN (12:01)
[2018-03-23] MEDS ORDERED: Naloxone 0.4 MG/ML INJ IVP PRN (12:01)
[2018-03-23] MEDS ORDERED: Dextrose Gel 15 GM/37.5 ML TUBE PO PRN ×2 (12:01)
[2018-03-23] MEDS ORDERED: Ipratropium/Albuterol Neb 3 ML IH PRN (12:01)
[2018-03-23] MEDS ORDERED: *HR* Dextrose 50 % in Water (Syg) 50 ML SYRINGE IVP PRN (12:01)
[2018-03-24 06:20] LABS: Calcium 9.1 mg/dL (8.6-10.3)
[2018-03-24] MEDS: Insulin LISPRO 300 UNITS/3 ML VIAL SQ SCH ×3 (06:34→18:22)
[2018-03-24] MEDS: Doxycycline 100 MG in 0.9 % Sodium Chloride Mini Bag 100 ML IVPB SCH (06:41)
[2018-03-24] MEDS: MethylPREDNISolone 40 MG/ML VIAL IVP SCH (06:41)
[2018-03-24] MEDS: *HR* Heparin 5,000 UNIT/ML VIAL SQ SCH ×2 (08:51→16:42)
[2018-03-24] MEDS: Aspirin 325 MG TABLET PO SCH (08:53)
[2018-03-24] MEDS: Insulin DETEMIR 100 UNIT/ML X5UNITS SQ SCH ×2 (08:54→22:20)
[2018-03-24] MEDS ORDERED: Pantoprazole 40 MG VIAL IVP SCH (09:00)
[2018-03-24] MEDS ORDERED: Magnesium Oxide 400 MG TABLET PO SCH (09:00)
[2018-03-24] MEDS: predniSONE 20 MG TABLET PO SCH (09:14)
[2018-03-24] MEDS: Diltiazem CD (24hr) 180 MG CAPSULE PO SCH (09:19)
[2018-03-24] MEDS: *HR* Amiodarone 200 MG TABLET PO SCH (09:19)
[2018-03-24] MEDS: Budesonide/Formoterol 160/4.5 MDI IH SCH ×2 (09:57→22:22)
--- NOTE | 2018-03-24 10:01 | Discharge Summary ---
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) 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 of insulin (2) CKD (chronic kidney disease) Status: Chronic Qualifiers: Chronic kidney disease stage: stage 3 (moderate) Qualified Code(s): N18.3 - Chronic kidney disease, stage 3 (moderate) (3) Hypothyroidism Status: Chronic Qualifiers: Hypothyroidism type: other Qualified Code(s): E03.8 - Other specified hypothyroidism (4) Tracheostomy care Status: Chronic (5) Acute and chronic respiratory failure Status: Acute Qualifiers: Respiratory failure complication: hypercapnia Qualified Code(s): J96.22 - Acute and chronic respiratory failure with hypercapnia (6) Atrial fibrillation Status: Acute Qualifiers: Atrial fibrillation type: paroxysmal Qualified Code(s): I48.0 - Paroxysmal atrial fibrillation (7) COPD exacerbation Status: Acute (8) Obesity Status: Acute Qualifiers: Obesity type: due to excess calories Body mass index: BMI 45.0-49.9 Qualified Code(s): E66.01 - Morbid (severe) obesity due to excess calories; Z68.42 - Body mass index (BMI) 45.0-49.9, adult (9) Diastolic CHF Status: Acute Qualifiers: Heart failure chronicity: chronic Qualified Code(s): I50.32 - Chronic diastolic (congestive) heart failure Hospital course: Mr. Zaman is a 67 year old male - Time Spent with Patient Total time spent providing and/or coordinating discharge services: - Discharge Medications Home Medications: Albuterol Sulfate [Albuterol Inhaler] 2 puff IH Q4HR PRN 11/16/15 [History] Allopurinol [Zyloprim 300 MG] 300 mg PO DAILY 11/16/15 [History] Levothyroxine [Synthroid] 75 mcg PO 30 11/16/15 [History] Potassium Chloride [K-Tab ER] 20 meq PO 6XD 11/16/15 [History] Spironolactone [Aldactone] 50 mg PO BID 11/16/15 [History] Furosemide [Lasix] 120 mg PO BID 08/19/17 [History] OxyCODONE/APAP 10/325 [Percocet 10/325 MG] 1 tab PO Q6H PRN #20 08/23/17 [Rx] Albuterol Neb [Proventil Neb] 2.5 mg IH Q6H PRN 11/01/17 [History] Budesonide/Formoterol 160/4.5 [Symbicort 160/4.5] 2 puff IH BIDR 11/01/17 [ History] Citalopram Hydrobromide [Celexa] 40 mg PO DAILY 11/01/17 [History] Insulin Glargine,Hum.rec.anlog [Toujeo Solostar] 110 units SQ BID 11/01/17 [ History] Magnesium Oxide [Mag-Ox] 400 mg PO DAILY 11/01/17 [History] Zolpidem [Ambien] 5 mg PO HS 11/01/17 [History] Diltiazem HCl [Diltiazem 24Hr Cd] 180 mg PO DAILY #30 cap 11/06/17 [Rx] Aspirin 325 mg PO DAILY 02/12/18 [History] Amiodarone HCl [Pacerone] 200 mg PO DAILY 03/22/18 [History] Ergocalciferol (VITAMIN D2) [Vitamin D2] 50,000 unit PO QWEEK 03/22/18 [History] Allergies/Adverse Reactions: 3 Allergy/AdvReac Type Severity Reaction Status Date / Time No Known Allergies Allergy Verified 02/12/18 00:14 Date of admission: 03/22/18 15:45 Primary care physician: Beverley Baum MD Consults: 03/22/18 16:20 Consult to Pulmonology [CONS] Routine Consulting Provider: [facility] Reason for Consult: recurrent resp failure. trached Call Completed: No - Constitutional Vitals: Temp Pulse Resp BP Pulse Ox 98.1 F 72 19 141/65 96 03/24/18 06:54 03/24/18 06:54 03/24/18 06:54 03/24/18 06:54 03/24/18 06:06 - Discharge Instructions Follow Up With: Beverley Baum MD [Primary Care Provider] -
--- NOTE | 2018-03-24 11:56 | Internal Med Progress Note ---
Date of Encounter: 03/24/18 Time of Encounter: 09:30 - Assessment and plan (1) Diabetes mellitus Current Visit: Yes Status: Chronic Assessment and plan: On long acting insulin at home Continue sliding scale, FSACHS, ADA diet Qualifiers: Diabetes mellitus longterm insulin use: with terminal make up operator use Chronic kidney disease stage: stage 2 (mild) Qualified Code(s): E08.22 - Diabetes mellitus due to underlying condition with diabetic chronic kidney disease; N18.2 - Chronic kidney disease, stage 2 (mild); Z79.4 - terminal make up operator (current) use of insulin (2) CKD (chronic kidney disease) Current Visit: Yes Status: Chronic Assessment and plan: Patient presented with hyperkalemia and his Cr today is slightly elevated, not met criteria for MARKY on CKD Baseline is 1.8 to 1.9 Continue to monitor Hold lasix today Qualifiers: Chronic kidney disease stage: stage 3 (moderate) Qualified Code(s): N18.3 - Chronic kidney disease, stage 3 (moderate) (3) Hypothyroidism Current Visit: Yes Status: Chronic Assessment and plan: continue synthroid Qualifiers: Hypothyroidism type: other Qualified Code(s): E03.8 - Other specified hypothyroidism (4) Tracheostomy care Current Visit: Yes Status: Chronic Assessment and plan: continue O2, for BIPAP qualification (5) Acute and chronic respiratory failure Current Visit: Yes Status: Acute Assessment and plan: Acute on chronic respiratory failure in setting of acute on chronic hypercarbia Multifactorial etiology: chronic CO2 retention, obesity hypoventilation syndrome , mild COPD exacerbation Likely contributed to pt's acute encephalopathy on presentation to [place] ED COPD exacerbation treatment as below PEr pulmonology pt would benefit from nocturnal BiPAP and BiPAP whenever sleeping BIPAP qualification overnight tonight Qualifiers: Respiratory failure complication: hypercapnia Qualified Code(s): J96.22 - Acute and chronic respiratory failure with hypercapnia (6) Atrial fibrillation Current Visit: Yes Status: Acute Assessment and plan: Rate controlled Continue amiodarone and diltiazem Qualifiers: Atrial fibrillation type: paroxysmal Qualified Code(s): I48.0 - Paroxysmal atrial fibrillation (7) COPD exacerbation Current Visit: Yes Status: Acute Assessment and plan: Continue prednisone and doxycycline (8) Obesity Current Visit: Yes Status: Chronic Assessment and plan: education Qualifiers: Obesity type: due to excess calories Body mass index: BMI 45.0-49.9 Qualified Code(s): E66.01 - Morbid (severe) obesity due to excess calories; Z68.42 - Body mass index (BMI) 45.0-49.9, adult (9) Diastolic CHF Current Visit: Yes Status: Acute Assessment and plan: Hold lasix for today Qualifiers: Heart failure chronicity: chronic Qualified Code(s): I50.32 - Chronic diastolic (congestive) heart failure (10) Acute encephalopathy Current Visit: Yes Status: Resolved Assessment and plan: resolved possibly due to hypercapnea - Time Spent With Patient Total time spent is greater than 50% in coordination of care (as documented) at patient's floor/unit and/or counseling patient: - Subjective Interval history: 67 M with Morbid Obesity, BEV, COPD, Chronic resp hypoxic and hypercapneic respiratory failure with trach He was admitted to the intensive care unit for management of encephalopathy, acute on chronic respiratory failure, COPDE He was transferred to the floors overnight He has numerous non-specific complains about his dissatisfaction with his care at this facility He is pending BiPAP qualification Renal function this a.m slighly worse, lasix has been held he also refused his amio and cardizem - Constitutional Vitals: Temp Pulse Resp BP Pulse Ox 98.1 F 72 19 141/65 96 03/24/18 06:54 03/24/18 06:54 03/24/18 06:54 03/24/18 06:54 03/24/18 06:06 General appearance: Present: A&O X 3, morbidly obese, pleasant, no acute distress - Head Head exam: Present: atraumatic, normocephalic - Eye Eye exam: Present: PERRL, conjuntiva pink, sclera anicteric Pupils: Present: PERRL - Neck Additional comments: trached. normal inspection - Respiratory Respiratory exam: Present: CTAB. Absent: accessory muscle use, rales, rhonchi, wheezes - Cardiovascular Cardiovascular exam: Present: RRR, +S1, +S2. Absent: diastolic murmur, gallop, rubs, systolic murmur - GI/Abdominal GI/Abdominal exam: Present: normal bowel sounds, soft, no peritoneal signs. Absent: distended, tenderness - Extremities Exam Extremities exam: Present: pedal edema (trace bilateral piting pedal edema, with chronic venous changes. ), warm, radial pulses palpable and symmetrical. Absent: calf tenderness, cyanotic - Neurological Exam Neurological exam: Present: alert, CN II-XII intact, oriented X3, no focal deficits. Absent: pronater drift, facial droop, speech deficit - Skin Skin exam: Present: dry, intact Internal Medicine: Result - Labs CBC & Chem 7: 03/24/18 05:15 Labs: BMP 03/24/18 05:15 Sodium 137 Potassium 5.0 Chloride 98 Carbon Dioxide 33 H BUN 64 H Creatinine 2.04 H Glucose 281 H Calcium 9.1 - ABG Interpretation ABG results: ABG ABG pH 7.35 pH Units (7.32-7.45) 03/23/18 04:36 ABG pCO2 82 mmHg (35-45) H* 03/23/18 04:36 ABG pO2 103 mmHg (85-104) 03/23/18 04:36 ABG O2 Saturation 97 % (95-98) 03/23/18 04:36 Consult Discharge Plan - Plan Referrals: Beverley Baum MD [Primary Care Provider] -
[2018-03-24] MEDS: Doxycycline 100 MG CAPSULE PO SCH (22:20)
[2018-03-24] MEDS ORDERED: *HR* OxyCODONE/APAP 10/325 TABLET PO PRN (23:34)
[2018-03-25] MEDS: *HR* Heparin 5,000 UNIT/ML VIAL SQ SCH ×2 (00:20→10:20)
[2018-03-25] MEDS: Insulin LISPRO 300 UNITS/3 ML VIAL SQ SCH ×3 (00:20→11:01)
[2018-03-25 05:10] LABS: Basophils % 0.2 %; Hematocrit 40.8 % (37.5-50.1); Immature Granulocytes % 2.3 % (0-4); Lymphocytes # 1.3 K/mcL (0.6-4.6); Lymphocytes % 6.7 %; Mean Corpuscular HGB Conc 31.9 g/dL (31.6-35.5); Mean Corpuscular Hemoglobin 30.2 pg (28.0-33.3); Mean Corpuscular Volume 94.9 fL (83.0-100.0); Mean Platelet Volume 10.2 fL (9.4-12.4); Monocytes # 1.2 K/mcL (0.0-1.3); Monocytes % 6.4 %; Neutrophils # 16.1 K/mcL (1.6-8.9); Platelet Count 281 K/mcL (140-400); Red Cell Distribution Width 14.6 % (11.5-14.5); Segmented Neutrophils % 84.4 %
[2018-03-25 05:33] LABS: Calcium 9.2 mg/dL (8.6-10.3); Potassium 4.5 mEq/L (3.5-5.1)
[2018-03-25] MEDS ORDERED: *HR* OxyCODONE/APAP 10/325 TABLET PO ONE (06:55)
[2018-03-25] MEDS: Budesonide/Formoterol 160/4.5 MDI IH SCH (09:59)
--- NOTE | 2018-03-25 10:52 | Discharge Summary ---
- NOTES TO OUTPATIENT PROVIDER Notes to Outpatient Provider: Follow-up with Pulmonology as scheduled. May need to do repeat testing for home BIPAP. He did not qualify for BIPAP during this admission. Follow-up with primary care provider in 2-3 days. Repeat BMP in 3-5 days. Hold Ambien, likely ctonributed to BEV-type symptoms. Orders not resulted at time of discharge: Pending orders 03/22/18 16:21 Respiratory Infection Panel [MOLMIC] Routine Date of Encounter: 03/25/18 Time of Encounter: 10:50 - Discharge Diagnosis (1) Acute and chronic respiratory failure Priority: Primary Status: Acute Qualifiers: Respiratory failure complication: hypercapnia Qualified Code(s): J96.22 - Acute and chronic respiratory failure with hypercapnia (2) Acute encephalopathy Priority: Secondary Status: Resolved (3) Diabetes mellitus Priority: Secondary Status: Chronic Qualifiers: Diabetes mellitus computer terminal operator insulin use: with computer terminal operator use Chronic kidney disease stage: stage 2 (mild) Qualified Code(s): E08.22 - Diabetes mellitus due to underlying condition with diabetic chronic kidney disease; N18.2 - Chronic kidney disease, stage 2 (mild); Z79.4 - group home (current) use of insulin (4) CKD (chronic kidney disease) Priority: Secondary Status: Chronic Qualifiers: Chronic kidney disease stage: stage 3 (moderate) Qualified Code(s): N18.3 - Chronic kidney disease, stage 3 (moderate) (5) Hypothyroidism Priority: Secondary Status: Chronic Qualifiers: Hypothyroidism type: other Qualified Code(s): E03.8 - Other specified hypothyroidism (6) Tracheostomy care Priority: Secondary Status: Chronic (7) Atrial fibrillation Priority: Secondary Status: Acute Qualifiers: Atrial fibrillation type: paroxysmal Qualified Code(s): I48.0 - Paroxysmal atrial fibrillation (8) COPD exacerbation Priority: Secondary Status: Acute (9) Obesity Priority: Secondary Status: Chronic Qualifiers: Obesity type: due to excess calories Body mass index: BMI 45.0-49.9 Qualified Code(s): E66.01 - Morbid (severe) obesity due to excess calories; Z68.42 - Body mass index (BMI) 45.0-49.9, adult (10) Diastolic CHF Priority: Secondary Status: Acute Qualifiers: Heart failure chronicity: chronic Qualified Code(s): I50.32 - Chronic diastolic (congestive) heart failure Hospital course: Mr. Zaman is a 67 year old male with history of chronic respiratory failure, CHF, COPD, CKD, and atrial fibrillation who presents with acute on chronic hypercapnic respiratory failure. He lives with his daughter at home and was found and examined this morning with increased somnolence. He was brought to [facility] and he was found to have hypercarbic respiratory failure and was placed on BiPAP prior to transfer to [facility]. Review noted that he visited his PCP 2 weeks ago with increased mucus through the trach and was prescribed 2 weeks course of Augmentin which he had completed more than 10 days of. His daughter also reported that in the last 2 weeks he had an increase need for oxygen using around 1 or 2 L nasal cannula. He has a history of recurrent hypercapnic respiratory failure leading to a trach placement at [facility] in early 2015. He does have COPD and a history of possible obesity hyperventilation syndrome. Per family, patient had a metal trach due to allergy to the prior tracheostomy. When he needs to be on ventilator they would replace the metal trach with a Shiley 6 XL 2 cuff. At baseline he is able to speak and swallow. He keeps his mental trach close during the day but in the night he keeps the trach open. He was admitted for acute and chronic respiratory failure and encephalopathy, likely from hypercapnea and COPD exacerbation. Patient mental status returned to baseline. He was continued on BIPAP and also started on doxycycline and Prednisone burst. Because of his complicated history, Pulmonology was consulted. He did have creatinine that was eleavted but returned to baseline. Patient takes ambien at home which was held on admission. Patient had overnight BIPAP qualification test and did not qualify for BIPAP. I suspect this may be in part from good response to steroids, antibiotics, and also from holding Ambien. Patient discharged home at baseline respiratory status. Ambien was discontinued on admission. He agrees to follow-up with PCP in 2-3 days and keep Pulmonology appointment as scheduled. He agrees to holding Ambien as this can worsen patient's situation, given it is still likely that he has BEV. - Time Spent with Patient Total time spent providing and/or coordinating discharge services: - Discharge Medications Prescriptions: Doxycycline 100 mg PO BID #6 capsule predniSONE [PredniSONE] 40 mg PO DAILY #3 tablet Home Medications: Albuterol Sulfate [Albuterol Inhaler] 2 puff IH Q4HR PRN 11/16/15 [History] Allopurinol [Zyloprim 300 MG] 300 mg PO DAILY 11/16/15 [History] Levothyroxine [Synthroid] 75 mcg PO 0630 11/16/15 [History] Potassium Chloride [K-Tab ER] 20 meq PO 6XD 11/16/15 [History] Spironolactone [Aldactone] 50 mg PO BID 11/16/15 [History] Furosemide [Lasix] 120 mg PO BID 08/19/17 [History] OxyCODONE/APAP 10/325 [Percocet 10/325 MG] 1 tab PO Q6H PRN #20 08/23/17 [Rx] Albuterol Neb [Proventil Neb] 2.5 mg IH Q6H PRN 11/01/17 [History] Budesonide/Formoterol 160/4.5 [Symbicort 160/4.5] 2 puff IH BIDR 11/01/17 [ History] Citalopram Hydrobromide [Celexa] 40 mg PO DAILY 11/01/17 [History] Insulin Glargine,Hum.rec.anlog [Toujeo Solostar] 110 units SQ BID 11/01/17 [ History] Magnesium Oxide [Mag-Ox] 400 mg PO DAILY 11/01/17 [History] Diltiazem HCl [Diltiazem 24Hr Cd] 180 mg PO DAILY #30 cap 11/06/17 [Rx] Aspirin 325 mg PO DAILY 02/12/18 [History] Amiodarone HCl [Pacerone] 200 mg PO DAILY 03/22/18 [History] Ergocalciferol (VITAMIN D2) [Vitamin D2] 50,000 unit PO QWEEK 03/22/18 [History] Doxycycline 100 mg PO BID #6 capsule 03/25/18 [Rx] GuaiFENesin ER [Mucinex] 600 mg PO BID tbbp.12hr 03/25/18 [Rx] Naloxone [Narcan] 0.4 mg IVP Q2MIN PRN inj 03/25/18 [Rx] predniSONE [PredniSONE] 40 mg PO DAILY #3 tablet 03/25/18 [Rx] Allergies/Adverse Reactions: 3 Allergy/AdvReac Type Severity Reaction Status Date / Time No Known Allergies Allergy Verified 02/12/18 00:14 Date of admission: 03/22/18 15:45 Primary care physician: Beverley Baum MD Consults: 03/22/18 16:20 Consult to Pulmonology [CONS] Routine Consulting Provider: [facility] Reason for Consult: recurrent resp failure. trached Call Completed: No Discharging clinician: Meseret Jamil - Constitutional Vitals: Temp Pulse Resp BP Pulse Ox 97.9 F 73 18 180/80 92 03/25/18 06:31 03/25/18 06:31 03/25/18 10:06 03/25/18 06:31 03/25/18 10:06 General appearance: Present: A&O X 3, morbidly obese, pleasant, no acute distress Exam: - Head Head exam: Present: atraumatic, normocephalic - Eye Eye exam: Present: PERRL, conjuntiva pink, sclera anicteric Pupils: Present: PERRL - Neck Additional comments: trached. normal inspection - Respiratory Respiratory exam: Present: CTAB. Absent: accessory muscle use, rales, rhonchi, wheezes Poor inspiratory effort, decreased breath sounds. - Cardiovascular Cardiovascular exam: Present: RRR, +S1, +S2. Absent: diastolic murmur, gallop, rubs, systolic murmur - GI/Abdominal GI/Abdominal exam: Present: normal bowel sounds, soft, no peritoneal signs. Absent: distended, tenderness - Extremities Exam Extremities exam: Present: pedal edema (trace bilateral piting pedal edema, with chronic venous changes. ), warm, radial pulses palpable and symmetrical. Absent: calf tenderness, cyanotic - Neurological Exam Neurological exam: Present: alert, CN II-XII intact, oriented X3, no focal deficits. Absent: pronater drift, facial droop, speech deficit - Skin Skin exam: Present: dry, intact - Patient Status Disposition: Home, Self-Care Condition: Undetermined Functional capacity at discharge: independent ambulation Overall status at discharge: patient is progressing back to baseline - Discharge Instructions Follow Up With: Beverley Baum MD [Primary Care Provider] - - Diet and Activity Activity: increase activity as tolerated, resume usual activities as tolerated Diet: advance to your usual diet
[2018-03-25] MEDS: *HR* Amiodarone 200 MG TABLET PO SCH (10:57)
[2018-03-25] MEDS: Aspirin 325 MG TABLET PO SCH (10:57)
[2018-03-25] MEDS: predniSONE 20 MG TABLET PO SCH (10:57)
[2018-03-25] MEDS: Doxycycline 100 MG CAPSULE PO SCH (10:58)
[2018-03-25] MEDS: Diltiazem CD (24hr) 180 MG CAPSULE PO SCH (10:58)
[2018-03-25] MEDS: Insulin DETEMIR 100 UNIT/ML X5UNITS SQ SCH (11:01)
[2018-03-25 11:29] VITALS: BP 157/96
[2018-03-25] MEDS ORDERED: Magnesium Oxide 400 MG TABLET PO SCH (12:00)
== END 2018-03-25 14:00 | disposition home or self-care (01) | DRG 189 ==
LOC: ICNU 15:45 → 2NENU 03-23 11:59
PROVIDERS: ADMIT Internal Medicine Hematology & Oncology; ATTEND Family Medicine